=== PATIENT | female | born 1950 ===

== ENCOUNTER 2020-05-03 10:33 | Outpatient (REF) | payer MEDICARE, SELFPAY | END 2020-05-03 10:34 | disposition home or self-care (01) | LOC: HO.LAB 10:33 | PROVIDERS: Visit Provider Internal Medicine | DX: Z20.828 Contact with and (suspected) exposure to other viral communicable diseases (principal) | CPT/HCPCS: C9803; U0003 ==

== ENCOUNTER 2020-07-28 08:02 | Outpatient (REF) | payer MEDICARE, SELFPAY | END 2020-07-28 08:03 | disposition home or self-care (01) | LOC: HO.LAB 08:02 | PROVIDERS: Visit Provider Internal Medicine | DX: Z20.822 Contact with and (suspected) exposure to COVID-19 (principal) | CPT/HCPCS: 36415; C9803; U0003; U0005 ==

== ENCOUNTER 2020-07-28 23:08 | Emergency (ER) | payer MEDICARE, SELFPAY ==
--- NOTE | 2020-07-29 01:20 | ED.DENTAL ---
HPI - Dental/Oral General Chief complaint: Dental/Oral Stated complaint: dental pain Time Seen by Provider: 07/29/20 01:18 History of Present Illness HPI Narrative: Patient has a dentist appointment and was started on antibiotics and has only taken 1 tablet thus far. She is not having fever or chills, negative trismus, no evidence difficulty swallowing or breathing. MD Complaint: tooth pain Teeth map: 1. Related Data Allergies Allergy/AdvReac Type Severity Reaction Status Date / Time aspirin [ASA] Allergy Unknown STOMACH Verified 07/29/20 01:35 UPSET, gi upset Review of Systems Review of Systems: Pertinent positives and negatives as stated in HPI 10 point review of systems is otherwise negative. [facility] Past Medical History Source: nursing notes reviewed Medical History High cholesterol HTN (hypertension) Lumbar degenerative disc disease Psoriatic arthritis Social History Social History Advance Directives: No Physical Exam Vital Signs: Vital Signs: Last Vital Signs Temp 99.1 F 07/29/20 01:30 Pulse 77 07/29/20 01:30 Resp 18 07/29/20 01:30 BP 131/78 07/29/20 01:30 Pulse Ox 97 07/29/20 01:30 Body Mass Index 35.0 VITAL SIGNS: Reviewed. GENERAL: Well developed, well nourished, in no acute distress. EARS: Ext canals without abnormality, TMs non-bulging and non-erythematous NOSE: Nares patent bilateral OROPHARYNX: no oral lesions noted, posterior pharynx clear, noted dental hernan to the left upper molar, no trismus, no lip/tongue swelling NECK: Supple, no adenopathy LUNGS: Normal breath sounds. SpO2<97> CARDIOVASCULAR: Regular rate and rhythm without noted murmurs, no JVD or lower extremity edema. ABDOMEN: Soft, non-tender, non-distended with bowel sounds. NEUROLOGIC: Alert and oriented x 4. Course Course Course Narrative: This is a 70-year-old female who presents with tooth pain and has already been started on antibiotics, however she has only taken 1 tablet and presents with complaints of same tooth pain. Discussed with the patient that she would need to allow 24-48 hours for the pain to begin to resolve and in the meantime encouraged to continue taking [id number] Tylenol and ibuprofen. Patient was reassured by this information and was agreeable for discharge to home. Discharge Plan Discharge Clinical Impression: Pain, dental Patient Disposition: Home, Self-Care Instructions: Toothache (ED) Additional Instructions: 1. Tylenol 1000 mg, por v?a oral, cada 6 horas seg?n sea necesario para controlar el dolor. No exceda los 4000 mg en 24 horas. 2. Recomiende Anbesol, est? disponible sin receta y debe aplicarse jami se indica en el empaque exterior. 3. Contin?e con los antibi?ticos que le lloyd recetado y espere 24 horas adicionales para que el medicamento comience a hacer efecto. 4. Se recomienda aplicar un aerosol de soluci?n salina de venta fredi en el lado kathy de la nariz para mantener la hidrataci?n y as? evitar? el sangrado nasal. No dude en volver al servicio de urgencias si presenta fiebre, escalofr?os, dificultad para tragar o respirar. Interventions: ED Discharge Assessment Last Done: 07/29/20 02:47 Discharge Date/Time: 07/29/20 02:49 Print Language: Maori
[2020-07-29 01:30] VITALS: BP 131/78; PULSE 77; RESP 18; TEMP 37.3; O2SAT 97; BMI 35.0
== END 2020-07-29 02:49 | disposition home or self-care (01) ==
PROVIDERS: Emergency Provider Student in an Organized Health Care Education/Training Program; PCP Internal Medicine
DX: K08.89 Other specified disorders of teeth and supporting structures (principal); I10 Essential (primary) hypertension
CPT/HCPCS: 99282; 99283

== ENCOUNTER → 2020-08-03 09:22 | Outpatient (BNVA) | payer MEDICARE, SELFPAY | PROVIDERS: PCP Internal Medicine; Visit Provider Nurse Practitioner | DX: Z13.89 Encounter for screening for other disorder (principal) | CPT/HCPCS: Q3014 ==

== ENCOUNTER 2020-08-04 10:30 | Outpatient (RCR) | payer MEDICARE, SELFPAY | END 2020-09-12 08:24 | disposition other institution (70) | LOC: HO.OT 10:30 | PROVIDERS: PCP Internal Medicine; Visit Provider Internal Medicine Rheumatology | DX: M77.11 Lateral epicondylitis, right elbow (principal) | CPT/HCPCS: 97035; 97110; 97140; 97166 ==

== ENCOUNTER 2020-09-16 20:00 | Emergency (ER) | payer MEDICARE, SELFPAY ==
--- NOTE | ~2020-09-16 | XR_ITS ---
EXAMINATION: XR CHEST CLINICAL INFORMATION: Chest wall pain COMPARISON: Chest x-ray 06/04/2019 TECHNIQUE: Frontal portable view of the chest was obtained. 8:41 PM FINDINGS: No significant abnormality is noted involving the heart, lungs, mediastinum, bony thorax or soft tissues. XR/XR chest 1V IMPRESSION: Unremarkable examination.
--- NOTE | 2020-09-16 20:16 | PC.NURSE ---
WAITING FOR INTERPRETOR TO TRIAGE.
[2020-09-16 20:19] VITALS: BP 126/65; PULSE 57; RESP 16; TEMP 36.8; O2SAT 95; BMI 35.0
--- NOTE | 2020-09-16 20:24 | ECG_ITS ---
Test Reason : CP Blood Pressure : / mmHG Vent. Rate : 060 BPM Atrial Rate : 060 BPM P-R Int : 148 ms QRS Dur : 100 ms QT Int : 450 ms P-R-T Axes : 048 -19 063 degrees QTc Int : 450 ms Sinus rhythm with occasional Premature ventricular complexes Moderate voltage criteria for LVH, may be normal variant Nonspecific T wave abnormality Abnormal ECG When compared to the previous EKG of PVC present Referred By: Generic ED Physician Electronically Signed By:Ganga De La Cruz
[2020-09-16] MEDS: Aspirin Enteric Coated 81 MG TABLET.DR 162 MG PO (21:10)
[2020-09-16 21:18] VITALS: BP 128/62; PULSE 61; RESP 14; O2SAT 96
[2020-09-16 21:22] LABS: MANUAL DIFF FLAG NO
[2020-09-16 21:23] LABS: Basophils Absolute Auto 0.1 X10*3/uL (0.0-0.2); Basophils Percent Auto 0.7 % (0-2); Eosinophils Absolute Auto 0.4 X10*3/uL (0.0-0.4); Eosinophils Percent Auto 3.4 % (0-4); Hematocrit 39.9 % (37-47); Hemoglobin 13.5 g/dl (12.0-16.0); Imm Gran Abs Auto 0.02 X10*3/uL (0.00-0.03); Imm Gran Pct Auto 0.2 % (0.0-0.4); Lymphocytes Absolute Auto 4.5 X10*3/uL (1.2-4.9); Lymphocytes Percent Auto 42.9 % (20-40); Mean Corpuscular HGB Conc 33.8 g/dl (31.0-35.0); Mean Corpuscular Hemoglobin 31.3 pg (27.0-33.0); Mean Corpuscular Volume 92.6 fL (80-98); Mean Platelet Volume 10.2 fL (9.4-12.3); Monocytes Absolute Auto 0.7 X10*3/uL (0.1-1.2); Monocytes Percent Auto 6.9 % (2-11); Neutrophils Absolute Auto 4.8 X10*3/uL (2.0-8.3); Neutrophils Percent Auto 45.9 % (45-73); Platelet Count 190 X10*3/uL (160-400); Red Blood Count 4.31 X10*6/uL (4.20-5.50); White Blood Count 10.4 X10*3/uL (4.8-10.8)
--- NOTE | 2020-09-16 21:24 | PC.NURSE ---
pt has plus 2 pitting edema BLE's up to shins. states it's been that way for a long time but doesn't take lasix. / ls cta. denies SOB, diaphoresis. states pain radiates to left arm and is worse with movement.
[2020-09-16 21:47] LABS: Anion Gap 16 (12-20); Blood Urea Nitrogen 18 mg/dL (9-16); Calcium 9.8 mg/dL (8.4-10.2); Carbon Dioxide 24 mmol/L (22-29); Chloride 108 mmol/L (96-108); Creatinine Clr Calc Pharmacy 71.8; Estimated Glomerular Filt Rate > 60; Glucose Random 113 mg/dL (60-115); Potassium 4.3 mmol/L (3.3-5.1); Sodium 144 mmol/L (135-145)
[2020-09-16 21:54] LABS: Troponin-I High Sensitivity 9.9 ng/L (<3.5-17.0)
[2020-09-16 22:00] VITALS: BP 121/59; PULSE 57; RESP 18; O2SAT 96
--- NOTE | 2020-09-16 22:17 | ED_ITS ---
HPI - Chest Pain General Chief Complaint: General Medical Stated Complaint: chest pain Time Seen by Provider: 09/16/20 20:45 Source: patient Mode of arrival: ambulatory Limitations: no limitations History of Present Illness HPI narrative: Patient history of hypertension high cholesterol comes here for left-sided chest pain radiating left arm for last 3 days increases on movement of the left arm. Pain is there all the time no shortness of breath no diaphoresis no nausea no vomiting pain is sharp patient denies any cough no fever or chills no injury MD complaint: chest pain Related Data Previous Rx's Medication Instructions Recorded pantoprazole 40 mg tablet,delayed 40 mg PO DAILY 30 Days #30 tab 08/03/20 release tramadol 50 mg PO Q6H PRN #20 tab 09/16/20 Allergies Allergy/AdvReac Type Severity Reaction Status Date / Time aspirin [ASA] AdvReac Unknown STOMACH Verified 09/16/20 20:19 UPSET, gi upset Review of Systems 2 Review of Systems: Constitutional : No Weight loss, No Fever, No Chills ENT/Mouth : No sore throat, No Rhinorrhea Eyes: No Eye Pain, No Swelling Cardiovascular : +Chest Pain, no palpitations Respiratory : No Cough, No Sputum, no shortness of breath Gastrointestinal : no Nausea, No Vomiting, No Diarrhea, No abdominal Pain, no black stools Genitourinary : No Dysuria, No Urinary Frequency Musculoskeletal : No joint pain, No Myalgias, No Joint Swelling Skin : No Skin Lesions, No rash Neuro : No Weakness, No Numbness, No Dizziness, No Headache Psych : No Anxiety/Panic, No Depression Heme/Lymph: No Bruising, No Lymphadenopathy Endocrine : No Polyuria, No Polydipsia All other systems reviewed and are negative [facility] Past Medical History Medical History High cholesterol HTN (hypertension) Lumbar degenerative disc disease Psoriatic arthritis Surgical History H/O colonoscopy History of back surgery History of esophagogastroduodenoscopy (EGD) Family History Family History Mother Diabetes Father Diabetes Social History Social History Household Members: None Alcohol intake: never Smoking Status: Never smoker Use of substances other than those prescribed or required for medical reasons: No Advance Directives: No Advance Directives Information Provided: No Physical Exam Vital Signs: Vital Signs: Last Vital Signs Temp 98.2 F 09/16/20 20:19 Pulse 57 09/16/20 22:00 Resp 18 09/16/20 22:00 BP 121/59 L 09/16/20 22:00 Pulse Ox 96 09/16/20 22:00 Body Mass Index 35.0 Appearance: Alert. Oriented X3. No acute distress. Eyes: Pupils equal, round and reactive to light. ENT: Pharynx normal. Neck: Normal inspection. Neck supple. CVS: Normal heart rate and rhythm. Pulses normal. Respiratory: No respiratory distress. Breath sounds normal. Abdomen: Soft and nontender. Bowel sounds are present, no mass palpable, no CVA tenderness Skin: Skin warm and dry. Normal skin color. Normal skin turgor. Extremities: trace lower extremity edema. No calf tenderness Neuro: Oriented X 3. No motor deficit. No sensory deficit. MDM - Chest Pain MDM Narrative Medical decision making narrative: Patient has atypical chest pain for last 3 days EKG no acute ischemic changes high since troponins 9.9 will repeat troponin 2 hours likely musculoskeletal pain 23:45 repeat troponin without any significant delta change. 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 Lab Data Attestation: I reviewed the patient's lab results. Result diagrams: 09/16/20 21:17 09/16/20 21:16 Labs: Lab Results 09/16/20 09/16/20 09/16/20 Range/Units 21:16 21:16 21:16 WBC (4.8-10.8) X10*3/uL RBC (4.20-5.50) X10*6/uL Hgb (12.0-16.0) g/dl Hct (37-47) % MCV (80-98) fL MCH (27.0-33.0) pg MCHC (31.0-35.0) g/dl RDW (11.0-16.0) % Plt Count (160-400) X10*3/uL MPV (9.4-12.3) fL Immature Gran % (Auto) (0.0-0.4) % Neut % (Auto) (45-73) % Lymph % (Auto) (20-40) % [place] % (Auto) (2-11) % Eos % (Auto) (0-4) % Baso % (Auto) (0-2) % Lymph # (Auto) (1.2-4.9) X10*3/uL [place] # (Auto) (0.1-1.2) X10*3/uL Eos # (Auto) (0.0-0.4) X10*3/uL Baso # (Auto) (0.0-0.2) X10*3/uL Abs Immat Gran (auto) (0.00-0.03) X10*3/uL Absolute Neuts (auto) (2.0-8.3) X10*3/uL Absolute Nucleated RBC (0.0-0.012) X10*3/uL Nucleated RBC % (auto) (0.0-0.2) /100WBC Hold Blue Top SEE NOTE Sodium 144 (135-145) mmol/L Potassium 4.3 (3.3-5.1) mmol/L Chloride 108 (96-108) mmol/L Carbon Dioxide 24 (22-29) mmol/L Anion Gap 16 (12-20) BUN 18 H (9-16) mg/dL Creatinine 0.85 (0.5-1.4) mg/dL Estim Creat Clear Calc 71.8 Estimated GFR > 60 Random Glucose 113 (60-115) mg/dL Calcium 9.8 (8.4-10.2) mg/dL Troponin I High Sens 9.9 (<3.5-17.0) ng/L B-Natriuretic Peptide 39 (<100) pg/mL 09/16/20 09/16/20 Range/Units 21:17 23:09 WBC 10.4 (4.8-10.8) X10*3/uL RBC 4.31 (4.20-5.50) X10*6/uL Hgb 13.5 (12.0-16.0) g/dl Hct 39.9 (37-47) % MCV 92.6 (80-98) fL MCH 31.3 (27.0-33.0) pg MCHC 33.8 (31.0-35.0) g/dl RDW 13.0 (11.0-16.0) % Plt Count 190 (160-400) X10*3/uL MPV 10.2 (9.4-12.3) fL Immature Gran % (Auto) 0.2 (0.0-0.4) % Neut % (Auto) 45.9 (45-73) % Lymph % (Auto) 42.9 H (20-40) % [place] % (Auto) 6.9 (2-11) % Eos % (Auto) 3.4 (0-4) % Baso % (Auto) 0.7 (0-2) % Lymph # (Auto) 4.5 (1.2-4.9) X10*3/uL [place] # (Auto) 0.7 (0.1-1.2) X10*3/uL Eos # (Auto) 0.4 (0.0-0.4) X10*3/uL Baso # (Auto) 0.1 (0.0-0.2) X10*3/uL Abs Immat Gran (auto) 0.02 (0.00-0.03) X10*3/uL Absolute Neuts (auto) 4.8 (2.0-8.3) X10*3/uL Absolute Nucleated RBC 0.000 (0.0-0.012) X10*3/uL Nucleated RBC % (auto) 0.0 (0.0-0.2) /100WBC Hold Blue Top Sodium (135-145) mmol/L Potassium (3.3-5.1) mmol/L Chloride (96-108) mmol/L Carbon Dioxide (22-29) mmol/L Anion Gap (12-20) BUN (9-16) mg/dL Creatinine (0.5-1.4) mg/dL Estim Creat Clear Calc Estimated GFR Random Glucose (60-115) mg/dL Calcium (8.4-10.2) mg/dL Troponin I High Sens 11.9 (<3.5-17.0) ng/L B-Natriuretic Peptide (<100) pg/mL ECG Data ECG #1: Attestation: I personally reviewed and interpreted this ECG as follows: Interpretation: Normal sinus rhythm heart rate 60 beats per minute LVH nonspecific T-wave changes occasional unifocal PVC no acute ischemic changes Discharge Plan Discharge Clinical Impression: Chest pain Qualifiers: Chest pain type: chest pain on breathing Qualified Code(s): R07.1 - Chest pain on breathing Patient Disposition: Home, Self-Care Instructions: Chest Pain (ED) Additional Instructions: Take baby aspirin daily Tramadol for severe pain Follow with PCP/cardiology for further workup including stress test Report to ER if increasing chest pain/ shortness of breath Prescriptions: New tramadol 50 mg tablet 50 mg PO Q6H PRN (Reason: pain) Qty: 20 RF: 0 No Action pantoprazole [Protonix] 40 mg tablet,delayed release (DR/EC) 40 mg PO DAILY 30 Days Qty: 30 RF: 6 Referrals: Wesley Guo MD [Physician] - 1 week
[2020-09-16 22:51] LABS: B Type Natriuretic Peptide 39 pg/mL (<100)
--- NOTE | 2020-09-16 23:00 | PC.NURSE ---
pt reports feeling better. sb on moitor. awaits repeat trop. skin pwd. nad. unlabored resp.
[2020-09-16 23:42] LABS: Troponin-I High Sensitivity 11.9 ng/L (<3.5-17.0)
== END 2020-09-17 00:24 | disposition home or self-care (01) ==
PROVIDERS: Emergency Provider Internal Medicine; PCP Internal Medicine
DX: R07.1 Chest pain on breathing (principal); I10 Essential (primary) hypertension; E78.5 Hyperlipidemia, unspecified
CPT/HCPCS: 36415; 71045; 80048; 83880; 84484; 85025; 93005; 99284

== ENCOUNTER 2020-11-09 14:14 | Emergency (ER) | payer MEDICARE, SELFPAY ==
--- NOTE | 2020-11-09 | ECG_ITS ---
Test Reason : CHEST PAIN Blood Pressure : / mmHG Vent. Rate : 051 BPM Atrial Rate : 051 BPM P-R Int : 150 ms QRS Dur : 100 ms QT Int : 446 ms P-R-T Axes : 048 -18 030 degrees QTc Int : 411 ms Sinus bradycardia Moderate voltage criteria for LVH, may be normal variant Nonspecific T wave abnormality Abnormal ECG When compared with ECG of 16-SEP-2020 21:03, Premature ventricular complexes are no longer Present T wave inversion now evident in Anterior leads Referred By: Generic ED Physician Electronically Signed By:LION SHEPPARD MD
--- NOTE | ~2020-11-09 | XR_ITS ---
EXAMINATION: XR CHEST CLINICAL INFORMATION: Chest pain. COMPARISON: Chest upright 09/16/2020. TECHNIQUE: 2 views of the chest were obtained. FINDINGS: No significant abnormality is noted involving the heart, lungs, mediastinum, bony thorax or soft tissues. XR/XR chest 2V IMPRESSION: Unremarkable chest examination.
[2020-11-09 14:28] VITALS: BP 125/61; PULSE 64; RESP 18; TEMP 36.6; O2SAT 96; BMI 34.5
[2020-11-09 15:37] LABS: MANUAL DIFF FLAG NO
[2020-11-09 15:39] LABS: Basophils Percent Auto 0.5 % (0-2); Eosinophils Absolute Auto 0.3 X10*3/uL (0.0-0.4); Eosinophils Percent Auto 3.2 % (0-4); Hematocrit 41.6 % (37-47); Hemoglobin 13.9 g/dl (12.0-16.0); Imm Gran Abs Auto 0.02 X10*3/uL (0.00-0.03); Imm Gran Pct Auto 0.2 % (0.0-0.4); Lymphocytes Absolute Auto 3.2 X10*3/uL (1.2-4.9); Lymphocytes Percent Auto 37.6 % (20-40); Mean Corpuscular HGB Conc 33.4 g/dl (31.0-35.0); Mean Corpuscular Hemoglobin 31.2 pg (27.0-33.0); Mean Corpuscular Volume 93.3 fL (80-98); Mean Platelet Volume 9.9 fL (9.4-12.3); Monocytes Absolute Auto 0.6 X10*3/uL (0.1-1.2); Neutrophils Absolute Auto 4.4 X10*3/uL (2.0-8.3); Neutrophils Percent Auto 51.5 % (45-73); Platelet Count 206 X10*3/uL (160-400); Red Blood Count 4.46 X10*6/uL (4.20-5.50); Red Cell Distribution Width 13.3 % (11.0-16.0); White Blood Count 8.5 X10*3/uL (4.8-10.8)
[2020-11-09 16:23] LABS: Troponin-I High Sensitivity 8.9 ng/L (<3.5-17.0)
[2020-11-09 16:30] LABS: Alanine Aminotransferase 26 U/L (0-31); Albumin Level 4.9 g/dL (3.5-5.0); Alkaline Phosphatase 95 U/L (39-117); Anion Gap 12 (12-20); Aspartate Amino Transferase 35 U/L (5-31); Bilirubin Total 0.5 mg/dL (0.0-1.0); Blood Urea Nitrogen 28 mg/dL (9-16); Calcium 10.7 mg/dL (8.4-10.2); Carbon Dioxide 29 mmol/L (22-29); Chloride 106 mmol/L (96-108); Creatinine Clr Calc Pharmacy 47.7; Estimated Glomerular Filt Rate 41; Glucose Random 120 mg/dL (60-115); Potassium 4.6 mmol/L (3.3-5.1); Sodium 142 mmol/L (135-145); Total Protein 7.8 g/dL (6.5-8.0)
[2020-11-09 20:25] VITALS: BP 139/79; PULSE 55; RESP 16; TEMP 36.9; O2SAT 97
[2020-11-09 20:30] VITALS: PULSE 59
--- NOTE | 2020-11-09 21:44 | ED.CHESTPAIN ---
HPI - Chest Pain General Chief Complaint: Chest Pain Stated Complaint: chest pain, nausea, high blood pressure Time Seen by Provider: 11/09/20 21:44 History of Present Illness HPI narrative: Patient is a 70-year-old female presents today with having chest pain. The chest pain is over the mid chest. And on the left side. It is not associated with shortness of breath or diaphoresis. His been there on and off since yesterday. Currently it has been on for the last few hours. Patient had no recent stress test. Positive history of hypertension and high cholesterol. No smoking. Never had a heart attack. Related Data Previous Rx's Medication Instructions Recorded pantoprazole 40 mg tablet,delayed 40 mg PO DAILY 30 Days #30 tab 08/03/20 release tramadol 50 mg PO Q6H PRN #20 tab 09/16/20 Allergies Allergy/AdvReac Type Severity Reaction Status Date / Time aspirin [ASA] AdvReac Unknown STOMACH Verified 09/16/20 20:19 UPSET, gi upset Review of Systems Review of Systems: Constitutional: No Weight loss, No Fever, No Chills, No Night Sweats, No Fatigue, No Malaise ENT/Mouth: No Hearing loss, No Ear Pain, No Nasal Congestion, No Sinus Pain, No Hoarseness, No sore throat, No Rhinorrhea, No Swallowing Difficulty Eyes: No Eye Pain, No Swelling, No Redness, No Foreign Body, No Discharge, No Vision Changes Cardiovascular: Positive Chest Pain, No SOB, No Dyspnea on Exertion, No Orthopnea, No Edema, No Palpitations Respiratory: No Cough, No Sputum, No Wheezing, No Smoke Exposure, No Dyspnea Gastrointestinal: No Nausea, No Vomiting, No Diarrhea, No Constipation, No abdominal Pain, No Hematochezia, No Melena Genitourinary: no irregular bleeding, No Dysuria, No Urinary Frequency, No Hematuria, No Urinary Incontinence, No Urgency, No Flank Pain, No Urinary Flow Changes, No Hesitancy Musculoskeletal: No joint pain, No Myalgias, No Joint Swelling Skin: No Skin Lesions, No rash Neuro: No Weakness, No Numbness, No Paresthesias, No Loss of Consciousness, No Dizziness, No Headache Psych: No Anxiety/Panic, No Depression, No SI/HI/AH/VH, No Social Issues, Heme/Lymph: No Bruising, No Bleeding,No Lymphadenopathy Endocrine: No Polyuria, No Polydipsia, No Temperature Intolerance [facility] Past Medical History Attestation statement: The following information was validated with the patient. Medical History High cholesterol HTN (hypertension) Lumbar degenerative disc disease Psoriatic arthritis Surgical History H/O colonoscopy History of back surgery History of esophagogastroduodenoscopy (EGD) Family History Family History Mother Diabetes Father Diabetes Social History Social History Household Members: None Alcohol intake: never Advance Directives: No Advance Directives Information Provided: No Physical Exam Vital Signs: Vital Signs: Last Vital Signs Temp 98.4 F 11/09/20 22:10 Pulse 52 11/09/20 22:10 Resp 14 11/09/20 22:10 BP 128/73 11/09/20 22:10 Pulse Ox 96 11/09/20 22:10 Body Mass Index 34.5 Appearance: Alert. Oriented X3. No acute distress. Eyes: Pupils equal, round and reactive to light. ENT: Pharynx normal. Neck: Normal inspection. Neck supple. No lymph nodes noted. No crepitus CVS: Normal heart rate and rhythm. Pulses normal. Normal S1 and S2 Respiratory: No respiratory distress. Breath sounds normal. No Wheezing. No rales Abdomen: Soft and nontender. No rigidity. No distention. good BS x4 Skin: Skin warm and dry. Normal skin color. Normal skin turgor. Extremities: No lower extremity edema. Neurovascular intact to all extremities. No Lacerations. No Rash Neuro: Oriented X 3. No motor deficit. No sensory deficit. Moving all extermities. No slurred speech MDM - Chest Pain MDM Narrative Medical decision making narrative: Patient's chest pain atypical. However patient is 70 years old with 2 risk factors. Will get 2 sets of cardiac enzymes. We will get chest x-ray to make sure patient is not have pneumonia pneumothorax. Will monitor carefully. In no distress currently. Two sets of cardiac enzymes are negative. Patient well appearing. Will discharge patient home. Explained to patient risk of coronary artery disease still exist. Will need close follow-up. In stable condition. Lab Data Result diagrams: 11/09/20 15:35 11/09/20 15:35 Labs: Lab Results 11/09/20 11/09/20 11/09/20 Range/Units 15:35 15:35 15:35 WBC 8.5 (4.8-10.8) X10*3/uL RBC 4.46 (4.20-5.50) X10*6/uL Hgb 13.9 (12.0-16.0) g/dl Hct 41.6 (37-47) % MCV 93.3 (80-98) fL MCH 31.2 (27.0-33.0) pg MCHC 33.4 (31.0-35.0) g/dl RDW 13.3 (11.0-16.0) % Plt Count 206 (160-400) X10*3/uL MPV 9.9 (9.4-12.3) fL Immature Gran % (Auto) 0.2 (0.0-0.4) % Neut % (Auto) 51.5 (45-73) % Lymph % (Auto) 37.6 (20-40) % [place] % (Auto) 7.0 (2-11) % Eos % (Auto) 3.2 (0-4) % Baso % (Auto) 0.5 (0-2) % Lymph # (Auto) 3.2 (1.2-4.9) X10*3/uL [place] # (Auto) 0.6 (0.1-1.2) X10*3/uL Eos # (Auto) 0.3 (0.0-0.4) X10*3/uL Baso # (Auto) 0.0 (0.0-0.2) X10*3/uL Abs Immat Gran (auto) 0.02 (0.00-0.03) X10*3/uL Absolute Neuts (auto) 4.4 (2.0-8.3) X10*3/uL Absolute Nucleated RBC 0.000 (0.0-0.012) X10*3/uL Nucleated RBC % (auto) 0.0 (0.0-0.2) /100WBC Sodium 142 (135-145) mmol/L Potassium 4.6 (3.3-5.1) mmol/L Chloride 106 (96-108) mmol/L Carbon Dioxide 29 (22-29) mmol/L Anion Gap 12 (12-20) BUN 28 H D (9-16) mg/dL Creatinine 1.27 (0.5-1.4) mg/dL Estim Creat Clear Calc 47.7 Estimated GFR 41 Random Glucose 120 H (60-115) mg/dL Calcium 10.7 H D (8.4-10.2) mg/dL Total Bilirubin 0.5 (0.0-1.0) mg/dL AST 35 H (5-31) U/L ALT 26 (0-31) U/L Alkaline Phosphatase 95 (39-117) U/L Troponin I High Sens 8.9 (<3.5-17.0) ng/L Total Protein 7.8 (6.5-8.0) g/dL Albumin 4.9 (3.5-5.0) g/dL 11/09/ Range/Units 22:10 WBC (4.8-10.8) X10*3/uL RBC (4.20-5.50) X10*6/uL Hgb (12.0-16.0) g/dl Hct (37-47) % MCV (80-98) fL MCH (27.0-33.0) pg MCHC (31.0-35.0) g/dl RDW (11.0-16.0) % Plt Count (160-400) X10*3/uL MPV (9.4-12.3) fL Immature Gran % (Auto) (0.0-0.4) % Neut % (Auto) (45-73) % Lymph % (Auto) (20-40) % [place] % (Auto) (2-11) % Eos % (Auto) (0-4) % Baso % (Auto) (0-2) % Lymph # (Auto) (1.2-4.9) X10*3/uL [place] # (Auto) (0.1-1.2) X10*3/uL Eos # (Auto) (0.0-0.4) X10*3/uL Baso # (Auto) (0.0-0.2) X10*3/uL Abs Immat Gran (auto) (0.00-0.03) X10*3/uL Absolute Neuts (auto) (2.0-8.3) X10*3/uL Absolute Nucleated RBC (0.0-0.012) X10*3/uL Nucleated RBC % (auto) (0.0-0.2) /100WBC Sodium (135-145) mmol/L Potassium (3.3-5.1) mmol/L Chloride (96-108) mmol/L Carbon Dioxide (22-29) mmol/L Anion Gap (12-20) BUN (9-16) mg/dL Creatinine (0.5-1.4) mg/dL Estim Creat Clear Calc Estimated GFR Random Glucose (60-115) mg/dL Calcium (8.4-10.2) mg/dL Total Bilirubin (0.0-1.0) mg/dL AST (5-31) U/L ALT (0-31) U/L Alkaline Phosphatase (39-117) U/L Troponin I High Sens 9.8 (<3.5-17.0) ng/L Total Protein (6.5-8.0) g/dL Albumin (3.5-5.0) g/dL Discharge Plan Discharge Clinical Impression: Chest pain Patient Disposition: Home, Self-Care Instructions: Chest Pain (ED) Prescriptions: No Action tramadol 50 mg tablet 50 mg PO Q6H PRN (Reason: pain) Qty: 20 RF: 0 pantoprazole [Protonix] 40 mg tablet,delayed release (DR/EC) 40 mg PO DAILY 30 Days Qty: 30 RF: 6 Referrals: Letty Morrison MD [Primary Care Provider] - 2 days Print Language: Croatian
[2020-11-09 22:10] VITALS: BP 128/73; PULSE 52; RESP 14; TEMP 36.9; O2SAT 96
[2020-11-09 22:57] LABS: Troponin-I High Sensitivity 9.8 ng/L (<3.5-17.0)
== END 2020-11-09 23:55 | disposition home or self-care (01) ==
PROVIDERS: Emergency Provider Emergency Medicine Emergency Medical Services; PCP Internal Medicine
DX: R07.9 Chest pain, unspecified (principal); I10 Essential (primary) hypertension; R11.0 Nausea; E78.00 Pure hypercholesterolemia, unspecified
CPT/HCPCS: 36415; 71046; 80053; 84484; 85025; 93005; 99283; 99284

== ENCOUNTER 2021-02-14 12:58 | Emergency (ER) | payer MEDICARE, SELFPAY ==
--- NOTE | ~2021-02-14 | CT_ITS ---
EXAMINATION: CT HEAD WITHOUT CONTRAST CLINICAL INFORMATION: Dizziness COMPARISON: Previous exam October 2012 TECHNIQUE: Contiguous axial imaging was performed from the skull base to vertex without intravenous administration of contrast. This CT examination was performed using dose optimization techniques as appropriate, variously including the following: *Automated exposure control *Adjustment of mA and/or kV according to patient size (this includes techniques or standardized protocols for targeted exams where dose is matched to indication/reason for exam; i.e. extremities or head) *Use of iterative reconstruction technique DLP: 729 mGy-cm FINDINGS: There is no evidence of acute intracranial hemorrhage or territorial infarction. No abnormal mass effect or midline shift is seen. Mcginnis to white matter differentiation is well preserved. No extra-axial fluid collections are identified. The ventricles are normal in size. There is no abnormal attenuation within the brain parenchyma. The osseous structures are normal. There is complete soft tissue opacification of the left maxillary sinus. There is also soft tissue opacification of the left ethmoid sinuses and left side of the sphenoid sinus. Mastoid air cells and middle ears are clear. CT/CT head/brain wo con IMPRESSION: No acute intracranial findings. Left-sided sinusitis.
--- NOTE | 2021-02-14 13:12 | PC.NURSE ---
waiting for administrative office assistant to triage
--- NOTE | 2021-02-14 13:35 | ED_ITS ---
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 Mode of arrival: ambulatory Limitations: no limitations History of Present Illness MD Complaint: generalized weakness (dizziness - mild, feels nauseated) Onset (ago): day(s) (4) Duration: intermittent Location: generalized Migration: none Severity: mild Quality: dull Relieving factors: none Exacerbating factors: none Associated symptoms: nausea/vomiting and other (mild lightheaded) Related Data Home Medications Medication Instructions Recorded Confirmed amlodipine 10 mg tablet 1 tab PO DAILY 02/14/21 02/14/21 atenolol 100 mg tablet 1 tab PO DAILY 02/14/21 02/14/21 atorvastatin 20 mg tablet 1 tab PO DAILY 02/14/21 02/14/21 cholecalciferol (vitamin D3) 25 1 cap PO DAILY 02/14/21 02/14/21 mcg (1,000 unit) capsule (Vitamin D3) ergocalciferol (vitamin D2) 1,250 1 cap PO QWEEK 02/14/21 02/14/21 mcg (50,000 unit) capsule folic acid 1 mg tablet 1 tab PO DAILY 02/14/21 02/14/21 furosemide 20 mg tablet 1 tab PO DAILY 02/14/21 02/14/21 ibuprofen 800 mg tablet 1 tab PO TID 02/14/21 02/14/21 lisinopril 40 mg tablet 1 tab PO DAILY 02/14/21 02/14/21 methotrexate sodium 2.5 mg tablet 4 tab PO QWEEK 02/14/21 02/14/21 nabumetone 750 mg tablet 1 tab PO BID PRN 02/14/21 02/14/21 prazosin 1 mg capsule 1 cap PO TID 02/14/21 02/14/21 Previous Rx's Medication Instructions Recorded tramadol 50 mg tablet 50 mg PO Q6H PRN #20 tab 09/16/20 pantoprazole 40 mg tablet,delayed 40 mg PO DAILY 90 Days #90 tab 02/06/21 release cefuroxime axetil 500 mg tablet 500 mg PO BID 10 Days #20 tab 02/14/21 meclizine 25 mg tablet 25 mg PO TID PRN #30 tab 02/14/21 ondansetron 4 mg disintegrating 4 mg PO Q8H PRN #20 tab 02/14/21 tablet Allergies Allergy/AdvReac Type Severity Reaction Status Date / Time aspirin [ASA] AdvReac Unknown STOMACH Verified 02/14/21 13:38 UPSET, gi upset Review of Systems Review of Systems: Constitutional : No Weight loss, No Fever, No Chills, No Fatigue, No Malaise ENT/Mouth : No sore throat, No Rhinorrhea Eyes: No Eye Pain, No Swelling, No Redness Cardiovascular : No Chest Pain, No SOB, No Dyspnea on Exertion, No Orthopnea, No Edema, No Palpitations Respiratory : No Cough, No Sputum, No Wheezing Gastrointestinal : pos Nausea, No Vomiting, No Diarrhea, No Constipation, No abdominal Pain, No Hematochezia, No Melena Genitourinary : No Dysuria, No Urinary Frequency, No Hematuria, Musculoskeletal : No joint pain, No Myalgias, No Joint Swelling Skin : No Skin Lesions, No rash Neuro : No Weakness, No Numbness, pos Dizziness, No Headache Psych : No Anxiety/Panic, No Depression Heme/Lymph: No Bruising, No Bleeding,No Lymphadenopathy Endocrine : No Polyuria, No Polydipsia All other systems reviewed and are negative [facility] Past Medical History Attestation statement: The following information was validated with the patient. Medical History (Updated 02/14/21 @ 15:01 by Ofelia Schultz DO) Borderline diabetes COVID-19 vaccine series completed High cholesterol HTN (hypertension) Lumbar degenerative disc disease Psoriatic arthritis Surgical History H/O colonoscopy History of back surgery History of esophagogastroduodenoscopy (EGD) Family History Family History Mother Diabetes Father Diabetes Social History Social History Household Members: None Alcohol intake: never Patient Tobacco Use Status: Never used Tobacco Advance Directives: No Advance Directives Information Provided: No Physical Exam Vital Signs: Vital Signs: Last Vital Signs Temp 97.2 F 02/14/21 13:38 Pulse 68 02/14/21 13:38 Resp 18 02/14/21 13:38 BP 122/75 02/14/21 13:38 Pulse Ox 93 02/14/21 13:38 Body Mass Index 35.0 Appearance: Alert. Oriented X3. No acute distress. Eyes: Pupils equal, round and reactive to light. ENT: Pharynx normal. Neck: Normal inspection. Neck supple. CVS: Normal heart rate and rhythm. Pulses normal. Respiratory: No respiratory distress. Breath sounds normal. Abdomen: Soft and nontender. Skin: Skin warm and dry. Normal skin color. Normal skin turgor. Extremities: No lower extremity edema. No calf ttp Neuro: Oriented X 3. No motor deficit. No sensory deficit. no drift, steady gait, CN2-12 intact Course Course Course Narrative: trop flat 4 days of symptoms no CP, CT head shows sinusitis likely the cause of her symptoms will start on ceftin MDM - Weakness MDM Narrative Medical decision making narrative: 70 yo female with HTN, HLD, back pain, arthritis here with 4 days of feeling dizzy and some nausea - no trauma, no AC therapy, she has a normal gait and neuro exam. She denies CP/SOB - seems atypical for ACS/PE - labs, CT head for mass, IVF, antivert dispo per results and findings. Lab Data Result diagrams: 02/14/21 14:17 02/14/21 14:17 Labs: Lab Results 02/14/21 02/14/21 02/14/21 Range/Units 14:17 14:17 14:17 WBC 9.1 (4.8-10.8) X10*3/uL RBC 4.32 (4.20-5.50) X10*6/uL Hgb 13.8 (12.0-16.0) g/dl Hct 39.8 (37-47) % MCV 92.1 (80-98) fL MCH 31.9 (27.0-33.0) pg MCHC 34.7 (31.0-35.0) g/dl RDW 13.2 (11.0-16.0) % Plt Count 211 (160-400) X10*3/uL MPV 10.2 (9.4-12.3) fL Immature Gran % (Auto) 0.2 (0.0-0.4) % Neut % (Auto) 56.9 (45-73) % Lymph % (Auto) 30.9 (20-40) % [place] % (Auto) 6.8 (2-11) % Eos % (Auto) 4.5 H (0-4) % Baso % (Auto) 0.7 (0-2) % Lymph # (Auto) 2.8 (1.2-4.9) X10*3/uL [place] # (Auto) 0.6 (0.1-1.2) X10*3/uL Eos # (Auto) 0.4 (0.0-0.4) X10*3/uL Baso # (Auto) 0.1 (0.0-0.2) X10*3/uL Abs Immat Gran (auto) 0.02 (0.00-0.03) X10*3/uL Absolute Neuts (auto) 5.2 (2.0-8.3) X10*3/uL Absolute Nucleated RBC 0.000 (0.0-0.012) X10*3/uL Nucleated RBC % (auto) 0.0 (0.0-0.2) /100WBC Sodium 142 (135-145) mmol/L Potassium 4.4 (3.3-5.1) mmol/L Chloride 106 (96-108) mmol/L Carbon Dioxide 27 (22-29) mmol/L Anion Gap 13 (12-20) BUN 13 D (9-16) mg/dL Creatinine 1.02 (0.5-1.4) mg/dL Estim Creat Clear Calc 59.8 Estimated GFR 53 Random Glucose 130 H (60-115) mg/dL Calcium 10.2 (8.4-10.2) mg/dL Magnesium 1.9 (1.6-2.6) mg/dL Total Bilirubin 0.7 (0.0-1.0) mg/dL Direct Bilirubin 0.2 (0.0-0.5) mg/dL AST 43 H (5-31) U/L ALT 26 (0-31) U/L Alkaline Phosphatase 78 (39-117) U/L Troponin I High Sens (<3.5-17.0) ng/L Total Protein 7.7 (6.5-8.0) g/dL Albumin 4.5 (3.5-5.0) g/dL Lipase 11 (8-78) U/L COVID-19 ([facility]) (Negative) COVID-19 Clin Com 02/14/21 02/14/21 Range/Units 14:17 14:18 WBC (4.8-10.8) X10*3/uL RBC (4.20-5.50) X10*6/uL Hgb (12.0-16.0) g/dl Hct (37-47) % MCV (80-98) fL MCH (27.0-33.0) pg MCHC (31.0-35.0) g/dl RDW (11.0-16.0) % Plt Count (160-400) X10*3/uL MPV (9.4-12.3) fL Immature Gran % (Auto) (0.0-0.4) % Neut % (Auto) (45-73) % Lymph % (Auto) (20-40) % [place] % (Auto) (2-11) % Eos % (Auto) (0-4) % Baso % (Auto) (0-2) % Lymph # (Auto) (1.2-4.9) X10*3/uL [place] # (Auto) (0.1-1.2) X10*3/uL Eos # (Auto) (0.0-0.4) X10*3/uL Baso # (Auto) (0.0-0.2) X10*3/uL Abs Immat Gran (auto) (0.00-0.03) X10*3/uL Absolute Neuts (auto) (2.0-8.3) X10*3/uL Absolute Nucleated RBC (0.0-0.012) X10*3/uL Nucleated RBC % (auto) (0.0-0.2) /100WBC Sodium (135-145) mmol/L Potassium (3.3-5.1) mmol/L Chloride (96-108) mmol/L Carbon Dioxide (22-29) mmol/L Anion Gap (12-20) BUN (9-16) mg/dL Creatinine (0.5-1.4) mg/dL Estim Creat Clear Calc Estimated GFR Random Glucose (60-115) mg/dL Calcium (8.4-10.2) mg/dL Magnesium (1.6-2.6) mg/dL Total Bilirubin (0.0-1.0) mg/dL Direct Bilirubin (0.0-0.5) mg/dL AST (5-31) U/L ALT (0-31) U/L Alkaline Phosphatase (39-117) U/L Troponin I High Sens 11.2 (<3.5-17.0) ng/L Total Protein (6.5-8.0) g/dL Albumin (3.5-5.0) g/dL Lipase (8-78) U/L COVID-19 ([facility]HAN) Negative (Negative) COVID-19 Clin Com See Note ECG Data Attestation: I personally reviewed and interpreted this ECG as follows: ECG interpretation date: 02/14/21 ECG interpretation time: 14:13 Interpretation: Rate: 57 Rhythm: sinus bradycardia [place]: left Normal P waves. Normal PAUL. Normal QRS complex. ST T wave : nonspecific, no FAITH qTC: normal prior studies: no acute change from prior no ischemia The study has been interpreted contemporaneously by me. . Discharge Plan Discharge Clinical Impression: Sinusitis Qualifiers: Sinusitis location: maxillary Chronicity: acute Recurrence: non-recurrent Qualified Code(s): J01.00 - Acute maxillary sinusitis, unspecified Patient Disposition: Home, Self-Care Instructions: Sinusitis (ED) Additional Instructions: return to ED for any worsening symptoms or concerns Prescriptions: New meclizine 25 mg tablet 25 mg PO TID PRN (Reason: dizziness) Qty: 30 RF: 0 ondansetron 4 mg tablet,disintegrating 4 mg PO Q8H PRN (Reason: nausea and vomiting) Qty: 20 RF: 0 cefuroxime axetil 500 mg tablet 500 mg PO BID 10 Days Qty: 20 RF: 0 No Action pantoprazole 40 mg tablet,delayed release (DR/EC) 40 mg PO DAILY 90 Days Qty: 90 RF: 0 atorvastatin 20 mg tablet 1 tab PO DAILY RF: 0 nabumetone 750 mg tablet 1 tab PO BID PRN (Reason: pain) RF: 0 ibuprofen 800 mg tablet 1 tab PO TID RF: 0 atenolol 100 mg tablet 1 tab PO DAILY RF: 0 prazosin 1 mg capsule 1 cap PO TID RF: 0 methotrexate sodium 2.5 mg tablet 4 tab PO QWEEK RF: 0 amlodipine 10 mg tablet 1 tab PO DAILY RF: 0 folic acid 1 mg tablet 1 tab PO DAILY RF: 0 furosemide 20 mg tablet 1 tab PO DAILY RF: 0 ergocalciferol (vitamin D2) 1,250 mcg (50,000 unit) capsule 1 cap PO QWEEK RF: 0 lisinopril 40 mg tablet 1 tab PO DAILY RF: 0 cholecalciferol (vitamin D3) [Vitamin D3] 25 mcg (1,000 unit) capsule 1 cap PO DAILY RF: 0 tramadol 50 mg tablet 50 mg PO Q6H PRN (Reason: pain) Qty: 20 RF: 0 Referrals: Letty Morrison MD [Primary Care Provider] - 2 days (if not better) Print Language: Telugu
[2021-02-14 13:38] VITALS: BP 122/75; PULSE 68; RESP 18; TEMP 36.2; O2SAT 93; BMI 35.0
--- NOTE | 2021-02-14 13:48 | ECG_ITS ---
Test Reason : WEAKNESS Blood Pressure : / mmHG Vent. Rate : 057 BPM Atrial Rate : 057 BPM P-R Int : 148 ms QRS Dur : 098 ms QT Int : 434 ms P-R-T Axes : 050 -19 030 degrees QTc Int : 422 ms Sinus bradycardia Moderate voltage criteria for LVH, may be normal variant Nonspecific T wave abnormality Abnormal ECG When compared with ECG of 09-NOV-2020 16:35, Nonspecific T wave abnormality, improved in Lateral leads Referred By: Ofelia Schultz Electronically Signed By:CHRISTIAN LAZO
--- NOTE | 2021-02-14 13:57 | PC.NURSE ---
PT CURRENTLY IN CT SCAN
[2021-02-14] MEDS: Meclizine HCl 25 MG TABLET PO (14:20)
[2021-02-14] MEDS: 0.9 % Sodium Chloride 1,000 ML 999 ML IVCONT (14:21)
[2021-02-14 14:25] LABS: MANUAL DIFF FLAG NO
[2021-02-14 14:29] LABS: Basophils Absolute Auto 0.1 X10*3/uL (0.0-0.2); Basophils Percent Auto 0.7 % (0-2); Eosinophils Absolute Auto 0.4 X10*3/uL (0.0-0.4); Eosinophils Percent Auto 4.5 % (0-4); Hematocrit 39.8 % (37-47); Hemoglobin 13.8 g/dl (12.0-16.0); Imm Gran Abs Auto 0.02 X10*3/uL (0.00-0.03); Imm Gran Pct Auto 0.2 % (0.0-0.4); Lymphocytes Absolute Auto 2.8 X10*3/uL (1.2-4.9); Lymphocytes Percent Auto 30.9 % (20-40); Mean Corpuscular HGB Conc 34.7 g/dl (31.0-35.0); Mean Corpuscular Hemoglobin 31.9 pg (27.0-33.0); Mean Corpuscular Volume 92.1 fL (80-98); Mean Platelet Volume 10.2 fL (9.4-12.3); Monocytes Absolute Auto 0.6 X10*3/uL (0.1-1.2); Monocytes Percent Auto 6.8 % (2-11); Neutrophils Absolute Auto 5.2 X10*3/uL (2.0-8.3); Neutrophils Percent Auto 56.9 % (45-73); Platelet Count 211 X10*3/uL (160-400); Red Blood Count 4.32 X10*6/uL (4.20-5.50); Red Cell Distribution Width 13.2 % (11.0-16.0); White Blood Count 9.1 X10*3/uL (4.8-10.8)
[2021-02-14 14:43] LABS: IDNOW Serial# 9DD0AD1C
[2021-02-14 14:44] LABS: COVID-19 Test Negative (Negative)
[2021-02-14 14:48] LABS: Anion Gap 13 (12-20); Blood Urea Nitrogen 13 mg/dL (9-16); Calcium 10.2 mg/dL (8.4-10.2); Carbon Dioxide 27 mmol/L (22-29); Chloride 106 mmol/L (96-108); Creatinine Clr Calc Pharmacy 59.8; Estimated Glomerular Filt Rate 53; Glucose Random 130 mg/dL (60-115); Potassium 4.4 mmol/L (3.3-5.1); Sodium 142 mmol/L (135-145)
[2021-02-14 14:54] LABS: Alanine Aminotransferase 26 U/L (0-31); Albumin Level 4.5 g/dL (3.5-5.0); Alkaline Phosphatase 78 U/L (39-117); Aspartate Amino Transferase 43 U/L (5-31); Bilirubin Direct 0.2 mg/dL (0.0-0.5); Bilirubin Total 0.7 mg/dL (0.0-1.0); Lipase 11 U/L (8-78); Magnesium 1.9 mg/dL (1.6-2.6); Total Protein 7.7 g/dL (6.5-8.0)
[2021-02-14 14:58] LABS: Troponin-I High Sensitivity 11.2 ng/L (<3.5-17.0)
== END 2021-02-14 15:30 | disposition home or self-care (01) ==
PROVIDERS: Emergency Provider Emergency Medicine; PCP Internal Medicine
DX: J01.00 Acute maxillary sinusitis, unspecified (principal); E86.0 Dehydration; R42 Dizziness and giddiness; Z79.899 Other long term (current) drug therapy; Z20.822 Contact with and (suspected) exposure to COVID-19
CPT/HCPCS: 36415; 70450; 80048; 80076; 83690; 83735; 84484; 85025; 87635; 93005; 96360; 99283; 99284

== ENCOUNTER 2021-02-20 06:32 | Day surgery (SDC) | payer MEDICARE, SELFPAY ==
[2021-02-14 10:54] VITALS: BMI 34.8
--- NOTE | 2021-02-19 08:39 | HO.ANESPROP2 ---
Documented by User: Argenis Kilpatrick NP 02/19/21 08:41 HPI - Anesthesia Eval Consult details Narrative: 70yo F for Colonoscopy [facility] Active Problems Active Problems: All Active Problems (Updated 02/15/21 @ 00:01 by Janet Robles) GERD (gastroesophageal reflux disease) (Acute) Tubular adenoma of colon (Acute) Past Medical History Medical History Borderline diabetes COVID-19 vaccine series completed High cholesterol HTN (hypertension) Lumbar degenerative disc disease Psoriatic arthritis Family History Family History Mother Diabetes Father Diabetes Surgical History Surgical History H/O colonoscopy History of back surgery History of esophagogastroduodenoscopy (EGD) Social History Social History Household Members: None Alcohol intake: never Patient Tobacco Use Status: Never used Tobacco Use of substances other than those prescribed or required for medical reasons: No Advance Directives Information Provided: No Meds Allergies Allergy/AdvReac Type Severity Reaction Status Date / Time aspirin [ASA] AdvReac Intermediate STOMACH Verified 02/20/21 06:39 UPSET, gi upset Home Medications Medication Instructions Recorded Confirmed Last Taken Type amlodipine 10 mg tablet 1 tab PO DAILY 02/14/21 02/14/21 02/20/21 05:30 History atenolol 100 mg tablet 1 tab PO DAILY 02/14/21 02/14/21 Unknown History atorvastatin 20 mg tablet 1 tab PO DAILY 02/14/21 02/14/21 Unknown History cholecalciferol (vitamin D3) 25 1 cap PO DAILY 02/14/21 02/14/21 Unknown History mcg (1,000 unit) capsule (Vitamin D3) ergocalciferol (vitamin D2) 1,250 1 cap PO QWEEK 02/14/21 02/14/21 Unknown History mcg (50,000 unit) capsule folic acid 1 mg tablet 1 tab PO DAILY 02/14/21 02/14/21 Unknown History furosemide 20 mg tablet 1 tab PO DAILY 02/14/21 02/14/21 Unknown History ibuprofen 800 mg tablet 1 tab PO TID 02/14/21 02/14/21 Unknown History lisinopril 40 mg tablet 1 tab PO DAILY 02/14/21 02/14/21 Unknown History methotrexate sodium 2.5 mg tablet 4 tab PO QWEEK 02/14/21 02/14/21 Unknown History nabumetone 750 mg tablet 1 tab PO BID PRN 02/14/21 02/14/21 Unknown History prazosin 1 mg capsule 1 cap PO TID 02/14/21 02/14/21 Unknown History Exam Exam Date and Time: February 19, 2021 0839 Height,Weight and Vital Signs: Height 5 ft 6 in Weight 97.976 kg Pertinent Lab Results Pertinent Lab Results: Laboratory Tests 02/14/21 02/14/21 14:17 14:17 WBC 9.1 Hgb 13.8 Hct 39.8 Plt Count 211 Sodium 142 Potassium 4.4 Chloride 106 Carbon Dioxide 27 BUN 13 D Creatinine 1.02 Narrative Narrative: EKG 01/2021 Vent. Rate : 057 BPM ? ? Atrial Rate : 057 BPM ?? P-R Int : 148 ms? QRS Dur : 098 ms ? ? QT Int : 434 ms ? ? ? P-R-T Axes : 050 -19 030 degrees ?? QTc Int : 422 ms ? Sinus bradycardia Moderate voltage criteria for LVH, may be normal variant Nonspecific T wave abnormality Abnormal ECG When compared with ECG of 09-NOV-2020 16:35, Nonspecific T wave abnormality, improved in Lateral leads Assessment and Plan Assessment Anesthesia Assessment: Chart Reviewed Documented by User: Radha Ardon MD 02/20/21 07:27 [facility] Past Medical History Medical History Borderline diabetes COVID-19 vaccine series completed High cholesterol HTN (hypertension) Lumbar degenerative disc disease Psoriatic arthritis Family History Family History Mother Diabetes Father Diabetes Family history of problems with anesthesia: No Surgical History Surgical History H/O colonoscopy History of back surgery History of esophagogastroduodenoscopy (EGD) History of Problems with Anesthesia: No Social History Social History Household Members: None Alcohol intake: never Patient Tobacco Use Status: Never used Tobacco Use of substances other than those prescribed or required for medical reasons: No Advance Directives Information Provided: No Meds Allergies Allergy/AdvReac Type Severity Reaction Status Date / Time aspirin [ASA] AdvReac Intermediate STOMACH Verified 02/20/21 06:39 UPSET, gi upset Home Medications Medication Instructions Recorded Confirmed Last Taken Type amlodipine 10 mg tablet 1 tab PO DAILY 02/14/21 02/14/21 02/20/21 05:30 History atenolol 100 mg tablet 1 tab PO DAILY 02/14/21 02/14/21 Unknown History atorvastatin 20 mg tablet 1 tab PO DAILY 02/14/21 02/14/21 Unknown History cholecalciferol (vitamin D3) 25 1 cap PO DAILY 02/14/21 02/14/21 Unknown History mcg (1,000 unit) capsule (Vitamin D3) ergocalciferol (vitamin D2) 1,250 1 cap PO QWEEK 02/14/21 02/14/21 Unknown History mcg (50,000 unit) capsule folic acid 1 mg tablet 1 tab PO DAILY 02/14/21 02/14/21 Unknown History furosemide 20 mg tablet 1 tab PO DAILY 02/14/21 02/14/21 Unknown History ibuprofen 800 mg tablet 1 tab PO TID 02/14/21 02/14/21 Unknown History lisinopril 40 mg tablet 1 tab PO DAILY 02/14/21 02/14/21 Unknown History methotrexate sodium 2.5 mg tablet 4 tab PO QWEEK 02/14/21 02/14/21 Unknown History nabumetone 750 mg tablet 1 tab PO BID PRN 02/14/21 02/14/21 Unknown History prazosin 1 mg capsule 1 cap PO TID 02/14/21 02/14/21 Unknown History Exam Height,Weight and Vital Signs: Height 5 ft 6 in Weight 97.976 kg Vital Signs Temp Pulse Resp BP Pulse Ox 09/21/21 06:53 97.1 F 55 18 139/79 97 Airway Mallampati Class: II TM Dist: >3cm Neck ROM: Full Loose/Missing/Broken Teeth: Yes (Some missing) Heart: RRR Lungs: CTAB Assessment and Plan Assessment Anesthesia Assessment: Anesthesia Plan Discussed Final Anesthetic Review Family History of Problems with Anesthesia: No History of Problems with Anesthesia: No NPO: Yes ASA Class: II Final Preanesthetic Review: No Changes in Pt Med Stat, Meds/Allgs Chart Reviewed, Consent Obtained/Reviewed and Anes Risks/Benef Reviewed Patient Risk: Low Procedure Risk: Low Assessment/Block/Sedation in SS: Assess/Block/Sedation-SS Anesthetic Plan Anesthetic Plan: MAC: Disposition: Standard PACU
[2021-02-20 06:53] VITALS: BP 139/79; PULSE 55; RESP 18; TEMP 36.2; O2SAT 97
[2021-02-20] MEDS: Lactated Ringers 1,000 ML 100 ML IVCONT (07:03)
--- NOTE | 2021-02-20 07:20 | P.HPSUR_ITS ---
Pre-Procedural Eval Section A Date of Service: 02/20/21 The patient is an INPATIENT: No The History & Physical has been completed within 30 days and I have reviewed it.: No Section B Chief Complaint: Colon cancer screening, Tubular Adenoma of colon Details of Present Illness: Colon cancer screening, history of colon polyps Relevant Family History (Specify if Yes): No Relevant Social History: None Present Medications: see Short Stay Collaborative assessment Medical History: Significant History (High cholesterol HTN (hypertension) Lumbar degenerative disc disease Psoriatic arthritis) History of Previous Operations: Relevant previous surgery/procedure and date(s) (History of colonoscopy, history of EGD, back surgery) Allergies: Allergies Allergy/AdvReac Type Severity Reaction Status Date / Time aspirin [ASA] AdvReac Intermediate STOMACH Verified 02/20/21 06:39 UPSET, gi upset Review of Systems Sugical H&P ROS: Negative: Constitution, Cardiovascular, Respiratory and G astrointestinal Exam Surgical H&P Exam: Normal: Heart, Normal: Lungs, Normal: Extremities and Normal: Abdomen Plan Diagnosis/Plan: Unchanged I have reviewed the history and physical and performed a pertinent physical examination on my patient. No changes have occurred unless specified.
--- NOTE | 2021-02-20 07:21 | W.PM.OPN ---
Operative Note Operative Note Date of Service: 02/20/21 Narrative: Pre-op diagnosis:?Colon cancer screening, history of colon polyps Post-op diagnosis:?other (Diverticulosis, hemorrhoids) Procedure:? COLONOSCOPY TILL CECUM Consent: Indications for the procedure and potential complications of bleeding, perforation, reaction to medications and missed diagnosis were discussed with the patient and informed consent was obtained. Instrument: Olympus PCF H 190 L variable stiffness pediatric colonoscope Monitoring: Vital signs and clinical assessment, intermittent blood pressure monitoring, continuous EKG monitoring, Pulse oximetry and Carbon Dioxide monitoring were done throughout the procedure. Colon withdrawl time was 19 minutes. Procedure: The patient was placed in the left lateral decubitis position and pre-procedure medications were administered. After a digital rectal examination of the ano-rectum, the video colonoscope was inserted into the rectum and advanced through the colon to the cecum. The colonoscope was slowly withdrawn in a retrograde panoramic fashion and the colon mucosa was carefully examined including a retroflexed view of the rectum. Findings and interventions are described below. Procedure Difficulty: Without difficulty Findings: Terminal Ileum: Not evaluated Cecum:? Normal Ascending Colon:? Normal Transverse Colon:? Normal Descending Colon:? Normal Sigmoid Colon:? Moderate diverticulosis Rectum:? Normal Ano-rectum:? Moderate internal hemorrhoids Colon preparation: ? Fair despite copious irrigation - no large lesion seen. Impression and Post Procedure Diagnosis: Colonoscopy Findings: No polyps were detected Moderate diverticulosis seen in the sigmoid colon Moderate hemorrhoids on retroflexed exam. Plan: Await pathology results Patient has an appointment on 03/06/21 in the GI Clinic with NARGIS Liao NP . Repeat Colonoscopy in 5 years if polyps due to fair prep.. Above findings were reviewed with the patient and diverticulosis handout was given in the discharge area Surgeon:?Elizabeth Sprague MD Anesthesia:?MAC (Anna Ortez, JULIETH) Was an Regional Tanker Truck Driver used for this Procedure?:?Yes Regional Tanker Truck Driver:?Kaylyn Arita Estimated blood loss (mL):?0 Pathology:?none sent Condition:?stable Disposition:?PACU
[2021-02-20 08:15] VITALS: BP 91/45; PULSE 62; RESP 16; TEMP 36.5; O2SAT 98
[2021-02-20 08:30] VITALS: BP 113/67; PULSE 59; RESP 18; TEMP 36.1; O2SAT 96
== END 2021-02-20 09:20 | disposition home or self-care (01) ==
PROVIDERS: PCP Internal Medicine; Visit Provider Internal Medicine Gastroenterology
PROC: 0DJD8ZZ Inspection of Lower Intestinal Tract, Via Natural or Artificial Opening Endoscopic (ICD-10-PCS; CPT 45378; principal; 2021-02-20 07:30)
DX: Z12.11 Encounter for screening for malignant neoplasm of colon (principal); K57.30 Diverticulosis of large intestine without perforation or abscess without bleeding; K64.8 Other hemorrhoids; Z86.010 Personal history of colon polyps; I10 Essential (primary) hypertension; E78.5 Hyperlipidemia, unspecified; I87.2 Venous insufficiency (chronic) (peripheral); Z79.899 Other long term (current) drug therapy
CPT/HCPCS: G0105

== ENCOUNTER → 2021-03-06 10:37 | Outpatient (BNVA) | payer MEDICARE, SELFPAY | PROVIDERS: Referring Provider Internal Medicine; Visit Provider Nurse Practitioner | DX: K21.9 Gastro-esophageal reflux disease without esophagitis (principal); D12.6 Benign neoplasm of colon, unspecified | CPT/HCPCS: 99212 ==

== ENCOUNTER 2021-03-14 10:26 | Outpatient (REF) | payer MEDICARE, SELFPAY ==
--- NOTE | ~2021-03-14 | MM_ITS ---
EXAMINATION: MM SCREENING DIGITAL BREAST TOMOSYNTHESIS, BILATERAL CLINICAL INFORMATION: Screening. Asymptomatic. The lifetime risk of breast cancer based on the Tyrer-Cuzick Model is 2%. COMPARISON: Mammography: 12/06/2019, 08/07/2018, 07/22/2017 TECHNIQUE: Digital breast tomosynthesis is performed in both the craniocaudal and mediolateral oblique views along with computer-aided detection (CAD). Synthesized 2D images are generated from the tomosynthesis. FINDINGS: There are scattered areas of fibroglandular density (ACR BI-RADS breast composition Category b). There are no significant masses, abnormal calcifications, or other abnormalities. Parenchymal pattern is similar to prior studies. No significant changes. MM/MM tomosynthesis screening BI IMPRESSION: No mammographic evidence of malignancy. ASSESSMENT: BI-RADS 1: Negative RECOMMENDATION: Routine annual mammography screening. This patient's information was entered into a reminder system with a target due date for their next mammogram.
== END 2021-03-14 10:27 | disposition home or self-care (01) ==
LOC: HO.MAMMO 10:26
PROVIDERS: Visit Provider Internal Medicine
DX: Z12.31 Encounter for screening mammogram for malignant neoplasm of breast (principal)
CPT/HCPCS: 77063; 77067

== ENCOUNTER 2021-04-12 19:22 | Emergency (ER) | payer MEDICARE, SELFPAY ==
--- NOTE | 2021-04-12 | ECG_ITS ---
Test Reason : CHEST PAIN Blood Pressure : / mmHG Vent. Rate : 076 BPM Atrial Rate : 076 BPM P-R Int : 148 ms QRS Dur : 098 ms QT Int : 412 ms P-R-T Axes : 047 -21 062 degrees QTc Int : 463 ms Normal sinus rhythm Moderate voltage criteria for LVH, may be normal variant ( R in aVL , Davon product ) Nonspecific T wave abnormality Abnormal ECG When compared with ECG of 14-FEB-2021 14:09, No significant change was found Heart rate has increased Referred By: Generic ED Physician Electronically Signed By:CASA SIMMS MD
--- NOTE | ~2021-04-12 | XR_ITS ---
EXAMINATION: XR CHEST CLINICAL INFORMATION: Chest pain. COMPARISON: Chest radiograph dated from 11/09/2020. TECHNIQUE: PA view of the chest was obtained. FINDINGS: Unchanged cardiomediastinal silhouette. Prominent bronchovascular markings in the right lung base, similar to prior. No focal consolidation, pleural effusion or pneumothorax. No acute osseous findings. XR/XR chest 1V IMPRESSION: No acute cardiopulmonary findings.
[2021-04-12 19:26] VITALS: BP 132/78; PULSE 84; RESP 18; TEMP 37.3; O2SAT 95; BMI 34.3
[2021-04-12 20:14] VITALS: BP 129/59; PULSE 73; RESP 18; TEMP 37.4; O2SAT 97
--- NOTE | 2021-04-12 20:20 | ED.CHESTPAIN ---
HPI - Chest Pain General Chief Complaint: Chest Pain Stated Complaint: cp Time Seen by Provider: 04/12/21 20:20 Source: patient Mode of arrival: ambulatory Limitations: no limitations History of Present Illness HPI narrative: Patient has no hypertension no known coronary artery disease with history of chest pain off and on stress test few years ago was negative complaining of left-sided chest pain started at 08:00 today off and on radiating to the left shoulder and neck no nausea no vomiting no diaphoresis feels slight short of breath had the covid booster yesterday no fever or chills no cough no fever Related Data Home Medications Medication Instructions Recorded Confirmed amlodipine 10 mg tablet 1 tab PO DAILY 02/14/21 02/14/21 atenolol 100 mg tablet 1 tab PO DAILY 02/14/21 02/14/21 atorvastatin 20 mg tablet 1 tab PO DAILY 02/14/21 02/14/21 cholecalciferol (vitamin D3) 25 1 cap PO DAILY 02/14/21 02/14/21 mcg (1,000 unit) capsule (Vitamin D3) ergocalciferol (vitamin D2) 1,250 1 cap PO QWEEK 02/14/21 02/14/21 mcg (50,000 unit) capsule folic acid 1 mg tablet 1 tab PO DAILY 02/14/21 02/14/21 furosemide 20 mg tablet 1 tab PO DAILY 02/14/21 02/14/21 ibuprofen 800 mg tablet 1 tab PO TID 02/14/21 02/14/21 lisinopril 40 mg tablet 1 tab PO DAILY 02/14/21 02/14/21 methotrexate sodium 2.5 mg tablet 4 tab PO QWEEK 02/14/21 02/14/21 nabumetone 750 mg tablet 1 tab PO BID PRN 02/14/21 02/14/21 prazosin 1 mg capsule 1 cap PO TID 02/14/21 02/14/21 Previous Rx's Medication Instructions Recorded tramadol 50 mg tablet 50 mg PO Q6H PRN #20 tab 09/16/20 pantoprazole 40 mg tablet,delayed 40 mg PO DAILY 90 Days #90 tab 02/06/21 release cefuroxime axetil 500 mg tablet 500 mg PO BID 10 Days #20 tab 02/14/21 meclizine 25 mg tablet 25 mg PO TID PRN #30 tab 02/14/21 ondansetron 4 mg disintegrating 4 mg PO Q8H PRN #20 tab 02/14/21 tablet Allergies Allergy/AdvReac Type Severity Reaction Status Date / Time aspirin [ASA] AdvReac Intermediate STOMACH Verified 04/12/21 19:26 UPSET, gi upset Review of Systems Review of Systems: Yes all other systems are reviewed and are negative COUNTS INCLUDE 234 BEDS AT THE [facility] Past Medical History Medical History Borderline diabetes COVID-19 vaccine series completed High cholesterol HTN (hypertension) Lumbar degenerative disc disease Psoriatic arthritis Surgical History H/O colonoscopy History of back surgery History of esophagogastroduodenoscopy (EGD) Family History Family History Mother Diabetes Father Diabetes Social History Social History Household Members: None Alcohol intake: never Patient Tobacco Use Status: Never used Tobacco Advance Directives: No Advance Directives Information Provided: Yes Physical Exam Vital Signs: Vital Signs: Last Vital Signs Temp 99.5 F 04/12/21 20:45 Pulse 79 04/12/21 20:45 Resp 16 04/12/21 20:45 BP 116/64 04/12/21 20:45 Pulse Ox 97 04/12/21 20:45 Body Mass Index 34.3 Appearance: Alert. Oriented X3. No acute distress. Eyes: PERRLA, No Nystagmus ENT: Pharynx normal. Oral Mucosa moist Neck: Normal inspection. Neck supple. CVS: Normal heart rate and rhythm. Pulses normal. Respiratory: No respiratory distress. Equal air entry bilateral, no wheezing/rales/rhonchi Abdomen: Soft and nontender. Bowel sounds are present, no mass palpable, no CVA tenderness Skin: Skin warm and dry. Normal skin color. Normal skin turgor. Extremities: No lower extremity edema. No calf tenderness Neuro: Oriented X 3. No motor deficit. MDM - Chest Pain MDM Narrative Medical decision making narrative: Patient has atypical chest pain. Here multiple times for similar pain no significant change in the troponin as compared to the past EKG without any acute ischemic changes likely normal cardiac pain advised patient to follow with photographic intelligence officer for further evaluation including stress test Lab Data Attestation: I reviewed the patient's lab results. Result diagrams: 04/12/21 20:45 04/12/21 20:45 Labs: Lab Results 04/12/21 04/12/21 04/12/21 Range/Units 20:45 20:45 20:45 WBC 6.7 (4.8-10.8) X10*3/uL RBC 4.46 (4.20-5.50) X10*6/uL Hgb 14.2 (12.0-16.0) g/dl Hct 41.7 (37.0-47.0) % MCV 93.5 (80.0-98.0) fL MCH 31.8 (27.0-33.0) pg MCHC 34.1 (31.0-35.0) g/dl RDW 12.9 (11.0-16.0) % Plt Count 189 (160-400) X10*3/uL MPV 10.1 (9.4-12.3) fL Immature Gran % (Auto) 0.3 (0.0-0.4) % Neut % (Auto) 60.5 (45-73) % Lymph % (Auto) 27.9 (20-40) % Miller % (Auto) 9.1 (2-11) % Eos % (Auto) 1.6 (0-4) % Baso % (Auto) 0.6 (0-2) % Lymph # (Auto) 1.9 (1.2-4.9) X10*3/uL Miller # (Auto) 0.6 (0.1-1.2) X10*3/uL Eos # (Auto) 0.1 (0.0-0.4) X10*3/uL Baso # (Auto) 0.0 (0.0-0.2) X10*3/uL Abs Immat Gran (auto) 0.02 (0.00-0.03) X10*3/uL Absolute Neuts (auto) 4.1 (2.0-8.3) x10*3/uL Absolute Nucleated RBC 0.000 (0.0-0.012) X10*3/uL Nucleated RBC % (auto) 0.0 (0.0-0.2) /100WBC D-Dimer NG/ML Sodium 137 (135-145) mmol/L Potassium 4.5 (3.3-5.1) mmol/L Chloride 104 (96-108) mmol/L Carbon Dioxide 23 (22-29) mmol/L Anion Gap 15 (12-20) BUN 15 (9-16) mg/dL Creatinine 1.07 (0.5-1.4) mg/dL Estim Creat Clear Calc 56.4 Estimated GFR 51 Random Glucose 223 H (60-115) mg/dL Calcium 9.8 (8.4-10.2) mg/dL Troponin I High Sens 12.1 (<3.5-17.0) ng/L B-Natriuretic Peptide 41 (<100) pg/mL 04/12/21 Range/Units 20:45 WBC (4.8-10.8) X10*3/uL RBC (4.20-5.50) X10*6/uL Hgb (12.0-16.0) g/dl Hct (37.0-47.0) % MCV (80.0-98.0) fL MCH (27.0-33.0) pg MCHC (31.0-35.0) g/dl RDW (11.0-16.0) % Plt Count (160-400) X10*3/uL MPV (9.4-12.3) fL Immature Gran % (Auto) (0.0-0.4) % Neut % (Auto) (45-73) % Lymph % (Auto) (20-40) % Miller % (Auto) (2-11) % Eos % (Auto) (0-4) % Baso % (Auto) (0-2) % Lymph # (Auto) (1.2-4.9) X10*3/uL Miller # (Auto) (0.1-1.2) X10*3/uL Eos # (Auto) (0.0-0.4) X10*3/uL Baso # (Auto) (0.0-0.2) X10*3/uL Abs Immat Gran (auto) (0.00-0.03) X10*3/uL Absolute Neuts (auto) (2.0-8.3) x10*3/uL Absolute Nucleated RBC (0.0-0.012) X10*3/uL Nucleated RBC % (auto) (0.0-0.2) /100WBC D-Dimer < 200 NG/ML Sodium (135-145) mmol/L Potassium (3.3-5.1) mmol/L Chloride (96-108) mmol/L Carbon Dioxide (22-29) mmol/L Anion Gap (12-20) BUN (9-16) mg/dL Creatinine (0.5-1.4) mg/dL Estim Creat Clear Calc Estimated GFR Random Glucose (60-115) mg/dL Calcium (8.4-10.2) mg/dL Troponin I High Sens (<3.5-17.0) ng/L B-Natriuretic Peptide (<100) pg/mL ECG Data ECG #1: Interpretation: Normal sinus rhythm heart rate 76 beats per minute LVH ,no acute ST T wave changes no acute ischemia Discharge Plan Discharge Clinical Impression: Chest pain Patient Disposition: Home, Self-Care Instructions: Chest Pain (ED) Additional Instructions: Continue medications and follow up with PCP/photographic intelligence officer for further workup including stress test Prescriptions: No Action pantoprazole 40 mg tablet,delayed release (DR/EC) 40 mg PO DAILY 90 Days Qty: 90 RF: 0 meclizine 25 mg tablet 25 mg PO TID PRN (Reason: dizziness) Qty: 30 RF: 0 ondansetron 4 mg tablet,disintegrating 4 mg PO Q8H PRN (Reason: nausea and vomiting) Qty: 20 RF: 0 cefuroxime axetil 500 mg tablet 500 mg PO BID 10 Days Qty: 20 RF: 0 atorvastatin 20 mg tablet 1 tab PO DAILY RF: 0 nabumetone 750 mg tablet 1 tab PO BID PRN (Reason: pain) RF: 0 ibuprofen 800 mg tablet 1 tab PO TID RF: 0 atenolol 100 mg tablet 1 tab PO DAILY RF: 0 prazosin 1 mg capsule 1 cap PO TID RF: 0 methotrexate sodium 2.5 mg tablet 4 tab PO QWEEK RF: 0 amlodipine 10 mg tablet 1 tab PO DAILY RF: 0 folic acid 1 mg tablet 1 tab PO DAILY RF: 0 furosemide 20 mg tablet 1 tab PO DAILY RF: 0 ergocalciferol (vitamin D2) 1,250 mcg (50,000 unit) capsule 1 cap PO QWEEK RF: 0 lisinopril 40 mg tablet 1 tab PO DAILY RF: 0 cholecalciferol (vitamin D3) [Vitamin D3] 25 mcg (1,000 unit) capsule 1 cap PO DAILY RF: 0 tramadol 50 mg tablet 50 mg PO Q6H PRN (Reason: pain) Qty: 20 RF: 0 Discharge Date/Time: 04/12/21 22:09
--- NOTE | 2021-04-12 20:29 | PC.NURSE ---
Pt. presents with chest pain starting at 0800 at rest. CP is left anterior, constant, nonradiating, and reproducible. No associated symptoms. denies increased stress or anxiety. No peripheral edema noted. LS are clear on exam. SPeaking in full, clear sentences. NAD
[2021-04-12] MEDS: Aspirin 81 MG TAB.CHEW 162 MG PO (20:43)
[2021-04-12 20:45] VITALS: BP 116/64; PULSE 79; RESP 16; TEMP 37.5; O2SAT 97
[2021-04-12 21:09] LABS: MANUAL DIFF FLAG NO
[2021-04-12 21:11] LABS: Basophils Percent Auto 0.6 % (0-2); Eosinophils Absolute Auto 0.1 X10*3/uL (0.0-0.4); Eosinophils Percent Auto 1.6 % (0-4); Hematocrit 41.7 % (37.0-47.0); Hemoglobin 14.2 g/dl (12.0-16.0); Imm Gran Abs Auto 0.02 X10*3/uL (0.00-0.03); Imm Gran Pct Auto 0.3 % (0.0-0.4); Lymphocytes Absolute Auto 1.9 X10*3/uL (1.2-4.9); Lymphocytes Percent Auto 27.9 % (20-40); Mean Corpuscular HGB Conc 34.1 g/dl (31.0-35.0); Mean Corpuscular Hemoglobin 31.8 pg (27.0-33.0); Mean Corpuscular Volume 93.5 fL (80.0-98.0); Mean Platelet Volume 10.1 fL (9.4-12.3); Monocytes Absolute Auto 0.6 X10*3/uL (0.1-1.2); Monocytes Percent Auto 9.1 % (2-11); Neutrophils Absolute Auto 4.1 x10*3/uL (2.0-8.3); Neutrophils Percent Auto 60.5 % (45-73); Platelet Count 189 X10*3/uL (160-400); Red Blood Count 4.46 X10*6/uL (4.20-5.50); Red Cell Distribution Width 12.9 % (11.0-16.0); White Blood Count 6.7 X10*3/uL (4.8-10.8)
[2021-04-12 21:22] LABS: D Dimer < 200 NG/ML
[2021-04-12 21:27] LABS: Anion Gap 15 (12-20); Blood Urea Nitrogen 15 mg/dL (9-16); Calcium 9.8 mg/dL (8.4-10.2); Carbon Dioxide 23 mmol/L (22-29); Chloride 104 mmol/L (96-108); Creatinine Clr Calc Pharmacy 56.4; Estimated Glomerular Filt Rate 51; Glucose Random 223 mg/dL (60-115); Potassium 4.5 mmol/L (3.3-5.1); Sodium 137 mmol/L (135-145)
[2021-04-12 21:38] LABS: B Type Natriuretic Peptide 41 pg/mL (<100); Troponin-I High Sensitivity 12.1 ng/L (<3.5-17.0)
== END 2021-04-12 22:09 | disposition home or self-care (01) ==
PROVIDERS: Emergency Provider Internal Medicine; PCP Internal Medicine
DX: R07.9 Chest pain, unspecified (principal); I10 Essential (primary) hypertension
CPT/HCPCS: 36415; 71045; 80048; 83880; 84484; 85025; 85379; 93005; 99283; 99284

== ENCOUNTER 2021-04-23 10:38 | Outpatient (REF) | payer MEDICARE, SELFPAY ==
--- NOTE | ~2021-04-23 | XR_ITS ---
EXAMINATION: XR LUMBOSACRAL SPINE WITH OBLIQUES CLINICAL INFORMATION: Low back pain COMPARISON: CT abdomen and pelvis 11/27/2018 TECHNIQUE: Lumbar spine is imaged in 5 views FINDINGS: There are postsurgical changes consistent with prior posterior lumbar fusion with bilateral pedicle screws L4 and S1 and bilateral carotid with intervening disc spaces. The hardware is intact. Lumbar lordosis is normal. There is no vertebral compression, spondylolisthesis, destructive process. There are degenerative disc changes lower thoracic spine and at L1-L2 and L2-L3 with disc narrowing and endplate sclerosis and vertebral spurring. The SI joints and visualized sacrum are unremarkable. XR/XR lumbar spine 4V min IMPRESSION: 1. Status post lumbosacral fusion. Hardware intact. No destructive process. 2. Degenerative disc changes T11-L3.
== END 2021-04-23 10:39 | disposition home or self-care (01) ==
LOC: HO.XRAY 10:38
PROVIDERS: Absent Provider Internal Medicine Rheumatology; PCP Internal Medicine; Visit Provider Internal Medicine
DX: M54.50 Low back pain, unspecified (principal)
CPT/HCPCS: 72110

== ENCOUNTER 2021-07-06 13:24 | Emergency (ER) | payer MEDICARE, SELFPAY ==
--- NOTE | ~2021-07-06 | XR_ITS ---
EXAMINATION: XR CERVICAL SPINE CLINICAL INFORMATION: Neck pain. COMPARISON: None TECHNIQUE: 3 views of the cervical spine were obtained. FINDINGS: There is mild straightening of cervical lordosis. The vertebral heights and alignment is normal. There is mild loss of C5-C6 disc height with ventral spondylosis. Rest of the disc heights are maintained normal. No visible acute fracture, dislocation or lytic process seen. The prevertebral and paravertebral soft tissues are normal. XR/XR cervical spine 3V IMPRESSION: Degenerative disc changes C5-C6 disc levels with moderate ventral spondylosis. No acute fracture or dislocation seen.
[2021-07-06 14:00] VITALS: BP 121/75; PULSE 65; RESP 18; TEMP 36.7; O2SAT 97; BMI 34.5
--- NOTE | 2021-07-06 14:33 | ED_ITS ---
HPI - Neck Pain/Injury General Chief Complaint: Neck Pain/Injury Stated Complaint: back of head pain down into neck Time Seen by Provider: 07/06/21 14:31 History of Present Illness HPI Narrative: Patient complains of pain and spasm in the left side of her neck making it hard to rotate her head, she woke this 2 days ago she has no numbness weakness or tingling she has had no injury no fevers, pain does not radiate, there is no headache no chest pain Related Data Home Medications Medication Instructions Recorded Confirmed amlodipine 10 mg tablet 1 tab PO DAILY 02/14/21 02/14/21 atenolol 100 mg tablet 1 tab PO DAILY 02/14/21 02/14/21 atorvastatin 20 mg tablet 1 tab PO DAILY 02/14/21 02/14/21 cholecalciferol (vitamin D3) 25 1 cap PO DAILY 02/14/21 02/14/21 mcg (1,000 unit) capsule (Vitamin D3) ergocalciferol (vitamin D2) 1,250 1 cap PO QWEEK 02/14/21 02/14/21 mcg (50,000 unit) capsule folic acid 1 mg tablet 1 tab PO DAILY 02/14/21 02/14/21 furosemide 20 mg tablet 1 tab PO DAILY 02/14/21 02/14/21 ibuprofen 800 mg tablet 1 tab PO TID 02/14/21 02/14/21 lisinopril 40 mg tablet 1 tab PO DAILY 02/14/21 02/14/21 methotrexate sodium 2.5 mg tablet 4 tab PO QWEEK 02/14/21 02/14/21 nabumetone 750 mg tablet 1 tab PO BID PRN 02/14/21 02/14/21 prazosin 1 mg capsule 1 cap PO TID 02/14/21 02/14/21 Previous Rx's Medication Instructions Recorded tramadol 50 mg tablet 50 mg PO Q6H PRN #20 tab 09/16/20 cefuroxime axetil 500 mg tablet 500 mg PO BID 10 Days #20 tab 02/14/21 meclizine 25 mg tablet 25 mg PO TID PRN #30 tab 02/14/21 ondansetron 4 mg disintegrating 4 mg PO Q8H PRN #20 tab 02/14/21 tablet pantoprazole 40 mg tablet,delayed 40 mg PO DAILY #90 tab 05/01/21 release Allergies Allergy/AdvReac Type Severity Reaction Status Date / Time aspirin [ASA] AdvReac Intermediate STOMACH Verified 04/12/21 19:26 UPSET, gi upset Review of Systems Verdana 4l Review of Systems: Verdana 4d Verdana 4d Positive for neck pain Negatives are no fever no chills no dizziness no weakness no headache no numbness weakness or tingling no fainting no feeling faint no radiating pain no chest pain no shortness of breath no changes to bowel or bladderbladder Yes all other systems are reviewed and are negative PMFSH Past Medical History Source: nursing notes reviewed Medical History Borderline diabetes COVID-19 vaccine series completed High cholesterol HTN (hypertension) Lumbar degenerative disc disease Psoriatic arthritis Surgical History H/O colonoscopy History of back surgery History of esophagogastroduodenoscopy (EGD) Family History Family History Mother Diabetes Father Diabetes Social History Social History Household Members: None Alcohol intake: never Patient Tobacco Use Status: Never used Tobacco Advance Directives: Yes Advance Directives Information Provided: Yes Advance Directives on File: No Physical Exam Verdana 4l Vital Signs: Verdana 4d Verdana 4d Vital Signs: Verdana 4d Verdana 4Bd Last Vital Signs Verdana 4d 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 4d Temp 98.1 F 07/06/21 14:00 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 4d Pulse 65 07/06/21 14:00 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 4d Resp 18 07/06/21 14:00 BP 121/75 07/06/21 14:00 Pulse Ox 97 07/06/21 14:00 BMI result Body Mass Index 34.5 General appearance is no acute distress Head is normocephalic atraumatic The head is nontender the pupils equal round reactive to light extraocular motions are intact The neck had left sided soft tissue paraspinal tenderness and some spasm, she could move her head up and down but it was painful to rotate her neck to the left and right Chest clear to auscultation bilateral No respiratory distress Extremities full range of motion x4 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 strength is 5/5 and symmetrical Motor is 5/5 x4 Sensation in extremities is intact and symmetrical, gait and balance were normal, interaction both expression and comprehension were normal Course Course Course Narrative: Patient with 2 days of musculoskeletal neck pain on the left side easily reproducible had an x-ray that did show some arthritic changes but no acute emergent changes Patient had no neurologic deficits no tingling and was discharged She has pain medicine at home so I added some muscle relaxer and she will follow with her doctor Discharge Plan Discharge Clinical Impression: Neck pain Patient Disposition: Home, Self-Care Additional Instructions: Follow closely with primary doctor for further evaluation, and possible physical therapy Neck x-ray did show some arthritis Return to the ER any time for any worse condition or any concerns Prescriptions: No Action pantoprazole 40 mg tablet,delayed release (DR/EC) 40 mg PO DAILY Qty: 90 0RF meclizine 25 mg tablet 25 mg PO TID PRN (Reason: dizziness) Qty: 30 0RF ondansetron 4 mg tablet,disintegrating 4 mg PO Q8H PRN (Reason: nausea and vomiting) Qty: 20 0RF cefuroxime axetil 500 mg tablet 500 mg PO BID 10 Days Qty: 20 0RF atorvastatin 20 mg tablet 1 tab PO DAILY 0RF nabumetone 750 mg tablet 1 tab PO BID PRN (Reason: pain) 0RF ibuprofen 800 mg tablet 1 tab PO TID 0RF atenolol 100 mg tablet 1 tab PO DAILY 0RF prazosin 1 mg capsule 1 cap PO TID 0RF methotrexate sodium 2.5 mg tablet 4 tab PO QWEEK 0RF amlodipine 10 mg tablet 1 tab PO DAILY 0RF folic acid 1 mg tablet 1 tab PO DAILY 0RF furosemide 20 mg tablet 1 tab PO DAILY 0RF ergocalciferol (vitamin D2) 1,250 mcg (50,000 unit) capsule 1 cap PO QWEEK 0RF lisinopril 40 mg tablet 1 tab PO DAILY 0RF cholecalciferol (vitamin D3) [Vitamin D3] 25 mcg (1,000 unit) capsule 1 cap PO DAILY 0RF tramadol 50 mg tablet 50 mg PO Q6H PRN (Reason: pain) Qty: 20 0RF
== END 2021-07-06 15:58 | disposition home or self-care (01) ==
PROVIDERS: Emergency Provider Emergency Medicine; PCP Internal Medicine
DX: M54.2 Cervicalgia (principal)
CPT/HCPCS: 72040; 99283

== ENCOUNTER → 2021-09-04 09:38 | Outpatient (BNVA) | payer MEDICARE, SELFPAY | PROVIDERS: PCP Internal Medicine; Referring Provider Internal Medicine; Visit Provider Nurse Practitioner | DX: K21.9 Gastro-esophageal reflux disease without esophagitis (principal); Z86.010 Personal history of colon polyps; Z79.899 Other long term (current) drug therapy | CPT/HCPCS: 99212 ==

== ENCOUNTER 2022-01-03 11:22 | Emergency (ER) | payer MEDICARE, SELFPAY ==
--- NOTE | ~2022-01-03 | XR_ITS ---
EXAMINATION: XR CHEST CLINICAL INFORMATION: Chest pain. COMPARISON: 04/12/2021 chest radiograph. TECHNIQUE: Frontal view of the chest was obtained. FINDINGS: No significant abnormality is noted involving the heart, lungs, mediastinum, bony thorax or soft tissues. XR/XR chest 1V IMPRESSION: No acute cardiopulmonary process.
[2022-01-03 11:25] VITALS: BMI 39.1
--- NOTE | 2022-01-03 11:25 | ECG_ITS ---
Test Reason : cp Blood Pressure : / mmHG Vent. Rate : 055 BPM Atrial Rate : 055 BPM P-R Int : 154 ms QRS Dur : 094 ms QT Int : 448 ms P-R-T Axes : 029 -17 026 degrees QTc Int : 428 ms Sinus bradycardia Minimal voltage criteria for LVH, may be normal variant ( R in aVL ) Nonspecific T wave abnormality Abnormal ECG When compared with ECG of 12-APR-2021 19:37, No significant change was found Referred By: Generic ED Physician Electronically Signed By:LION SHEPPARD MD
[2022-01-03 11:26] VITALS: BP 102/65; PULSE 57; RESP 16; TEMP 36.9; O2SAT 97; BMI 39.1
[2022-01-03 11:48] VITALS: PULSE 55; O2SAT 98
--- NOTE | 2022-01-03 11:49 | ED_ITS ---
HPI - Chest Pain General Chief Complaint: Chest Pain Stated Complaint: Chest pain Time Seen by Provider: 01/03/22 11:43 Source: patient and certified court/medical interpreter Mode of arrival: ambulatory Limitations: no limitations History of Present Illness HPI narrative: 71 yo female with hx of HTN, HLD, GERD, arthritis notes she woke up around 7am and felt pain from L posterior scapula area that is sharp hurts with movement and pleuritic in nature. She denies travel, trauma or any issues in the past like this. Did not take medications at home for pain prior to arrival. MD complaint: other (back pain ) Onset (ago): hour(s) (7am today ) Timing of current episode: constant Prior episodes: No Onset: during rest Pain location: other (L posterior thoracic back) Pain radiation: other (chest) Severity: moderate Quality: sharp Relieving factors: nothing Exacerbating factors: palpation and movement Associated symptoms: nausea Treatment prior to arrival: none Related Data Home Medications Medication Instructions Recorded Confirmed amlodipine 10 mg tablet 1 tab PO DAILY 02/14/21 02/14/21 atenolol 100 mg tablet 1 tab PO DAILY 02/14/21 02/14/21 atorvastatin 20 mg tablet 1 tab PO DAILY 02/14/21 02/14/21 cholecalciferol (vitamin D3) 25 1 cap PO DAILY 02/14/21 02/14/21 mcg (1,000 unit) capsule (Vitamin D3) ergocalciferol (vitamin D2) 1,250 1 cap PO QWEEK 02/14/21 02/14/21 mcg (50,000 unit) capsule folic acid 1 mg tablet 1 tab PO DAILY 02/14/21 02/14/21 furosemide 20 mg tablet 1 tab PO DAILY 02/14/21 02/14/21 ibuprofen 800 mg tablet 1 tab PO TID 02/14/21 02/14/21 lisinopril 40 mg tablet 1 tab PO DAILY 02/14/21 02/14/21 methotrexate sodium 2.5 mg tablet 4 tab PO QWEEK 02/14/21 02/14/21 nabumetone 750 mg tablet 1 tab PO BID PRN pain 02/14/21 02/14/21 prazosin 1 mg capsule 1 cap PO TID 02/14/21 02/14/21 Previous Rx's Medication Instructions Recorded tramadol 50 mg tablet 50 mg PO Q6H PRN pain #20 tabs 04/17/21 cefuroxime axetil 500 mg tablet 500 mg PO BID 10 days #20 tabs 02/14/21 meclizine 25 mg tablet 25 mg PO TID PRN dizziness #30 tabs 02/14/21 ondansetron 4 mg disintegrating 4 mg PO Q8H PRN nausea and 02/14/21 tablet vomiting #20 tabs pantoprazole 40 mg tablet,delayed 40 mg PO DAILY #90 tabs 09/04/21 release Allergies Allergy/AdvReac Type Severity Reaction Status Date / Time aspirin [ASA] AdvReac Intermediate STOMACH Verified 09/04/21 10:05 UPSET, gi upset Review of Systems Review of Systems: Constitutional : No Weight loss, No Fever, No Chills, ENT/Mouth : No Hearing loss, No Ear Pain, No Nasal Congestion, No Sinus Pain, No Hoarseness, No sore throat, No Rhinorrhea, No Swallowing Difficulty Cardiovascular : pos Chest Pain, No SOB Respiratory : No Cough, No Dyspnea Gastrointestinal : pos Nausea, No Vomiting, No Diarrhea, No abdominal Pain, No Hematochezia, No Melena Genitourinary : No Dysuria, No Urinary Frequency, No Hematuria, No Urinary Incontinence, Musculoskeletal : positive back pain Skin : No Skin Lesions, No rash Neuro : No Weakness, No Numbness, No Paresthesias, no loss of bowel or bladder incontinence, no saddle anesthesia All other systems reviewed and are negative [facility] Past Medical History Attestation statement: The following information was validated with the patient. Medical History Borderline diabetes COVID-19 vaccine series completed High cholesterol HTN (hypertension) Lumbar degenerative disc disease Psoriatic arthritis Surgical History (Updated 09/04/21 @ 10:01 by GASPER Andrews) H/O colonoscopy History of back surgery History of esophagogastroduodenoscopy (EGD) Family History Family History Mother Diabetes Father Diabetes Social History Social History Household Members: None Alcohol intake: never Patient Tobacco Use Status: Never used Tobacco Use of substances other than those prescribed or required for medical reasons: No Advance Directives: No Advance Directives Information Provided: No Physical Exam Vital Signs: Vital Signs: Last Vital Signs Temp 98.5 F 01/03/22 11:26 Pulse 55 01/03/22 11:48 Resp 16 01/03/22 11:26 BP 102/65 01/03/22 11:26 Pulse Ox 98 01/03/22 11:48 O2 Del Method 01/03/22 11:48 BMI result Body Mass Index 39.1 Appearance: Alert. Oriented X3. No acute distress. Eyes: Pupils equal, round and reactive to light. ENT: Pharynx normal. Neck: Normal inspection. Neck supple. CVS: Normal heart rate and rhythm. Pulses normal. Respiratory: No respiratory distress. Breath sounds normal. Back: ttp along posterior thoracic wall reproduces Abdomen: Soft and nontender. Skin: Skin warm and dry. Normal skin color. Normal skin turgor. Extremities: No lower extremity edema. No calf ttp Neuro: Oriented X 3. No motor deficit. No sensory deficit. Course Course Course Narrative: ddimer negative repeat trop pending 230 - signed out to Dr. Comer MDM - Chest Pain MDM Narrative Medical decision making narrative: 71 yo female with hx of HTN, HLD, GERD, arthritis here with c/o L posterior thoracic back pain - pleuritic but also reproducible in nature at this time will obtain troponin, EKG, CXR, ddimer - atypical for ACS, low susp for PE, possible MSK. Dispo per results and findings. Lab Data Result diagrams: 01/03/22 11:55 01/03/22 11:55 Labs: Lab Results 01/03/22 01/03/22 01/03/22 Range/Units 11:55 11:55 11:55 WBC 8.4 (4.8-10.8) X10*3/uL RBC 4.50 (4.20-5.50) X10*6/uL Hgb 14.4 (12.0-16.0) g/dl Hct 42.1 (37.0-47.0) % MCV 93.6 (80.0-98.0) fL MCH 32.0 (27.0-33.0) pg MCHC 34.2 (31.0-35.0) g/dl RDW 13.3 (11.0-16.0) % Plt Count 219 (160-400) X10*3/uL MPV 10.1 (9.4-12.3) fL Immature Gran % (Auto) 0.4 (0.0-0.4) % Neut % (Auto) 57.4 (45-73) % Lymph % (Auto) 30.3 (20-40) % [place] % (Auto) 8.5 (2-11) % Eos % (Auto) 2.9 (0-4) % Baso % (Auto) 0.5 (0-2) % Lymph # (Auto) 2.5 (1.2-4.9) X10*3/uL [place] # (Auto) 0.7 (0.1-1.2) X10*3/uL Eos # (Auto) 0.2 (0.0-0.4) X10*3/uL Baso # (Auto) 0.0 (0.0-0.2) X10*3/uL Abs Immat Gran (auto) 0.03 (0.00-0.03) X10*3/uL Absolute Neuts (auto) 4.8 (2.0-8.3) x10*3/uL Absolute Nucleated RBC 0.000 (0.0-0.012) X10*3/uL Nucleated RBC % (auto) 0.0 (0.0-0.2) /100WBC D-Dimer High Sensitivty < 150 NG/ML Sodium 139 (135-145) mmol/L Potassium 4.9 (3.3-5.1) mmol/L Chloride 105 (96-108) mmol/L Carbon Dioxide 26 (22-29) mmol/L Anion Gap 13 (12-20) BUN 14 (9-16) mg/dL Creatinine 0.97 (0.5-1.4) mg/dL Estim Creat Clear Calc 57.0 Estimated GFR 56 Random Glucose 119 H (60-115) mg/dL Calcium 10.3 H (8.4-10.2) mg/dL Magnesium 1.9 (1.6-2.6) mg/dL Total Bilirubin 0.6 (0.0-1.0) mg/dL Direct Bilirubin 0.2 (0.0-0.5) mg/dL AST 28 (5-31) U/L ALT 27 (0-31) U/L Alkaline Phosphatase 81 (39-117) U/L Troponin I High Sens (<3.5-17.0) ng/L Total Protein 7.7 (6.5-8.0) g/dL Albumin 4.9 (3.5-5.0) g/dL COVID-19 ([facility]AN) (Negative) COVID-19 Clin Com 01/03/22 01/03/22 Range/Units 11:55 11:56 WBC (4.8-10.8) X10*3/uL RBC (4.20-5.50) X10*6/uL Hgb (12.0-16.0) g/dl Hct (37.0-47.0) % MCV (80.0-98.0) fL MCH (27.0-33.0) pg MCHC (31.0-35.0) g/dl RDW (11.0-16.0) % Plt Count (160-400) X10*3/uL MPV (9.4-12.3) fL Immature Gran % (Auto) (0.0-0.4) % Neut % (Auto) (45-73) % Lymph % (Auto) (20-40) % [place] % (Auto) (2-11) % Eos % (Auto) (0-4) % Baso % (Auto) (0-2) % Lymph # (Auto) (1.2-4.9) X10*3/uL [place] # (Auto) (0.1-1.2) X10*3/uL Eos # (Auto) (0.0-0.4) X10*3/uL Baso # (Auto) (0.0-0.2) X10*3/uL Abs Immat Gran (auto) (0.00-0.03) X10*3/uL Absolute Neuts (auto) (2.0-8.3) x10*3/uL Absolute Nucleated RBC (0.0-0.012) X10*3/uL Nucleated RBC % (auto) (0.0-0.2) /100WBC D-Dimer High Sensitivty NG/ML Sodium (135-145) mmol/L Potassium (3.3-5.1) mmol/L Chloride (96-108) mmol/L Carbon Dioxide (22-29) mmol/L Anion Gap (12-20) BUN (9-16) mg/dL Creatinine (0.5-1.4) mg/dL Estim Creat Clear Calc Estimated GFR Random Glucose (60-115) mg/dL Calcium (8.4-10.2) mg/dL Magnesium (1.6-2.6) mg/dL Total Bilirubin (0.0-1.0) mg/dL Direct Bilirubin (0.0-0.5) mg/dL AST (5-31) U/L ALT (0-31) U/L Alkaline Phosphatase (39-117) U/L Troponin I High Sens 11.0 (<3.5-17.0) ng/L Total Protein (6.5-8.0) g/dL Albumin (3.5-5.0) g/dL COVID-19 ([facility]ARHAN) Negative (Negative) COVID-19 Clin Com See Note ECG Data ECG #1: Attestation: I personally reviewed and interpreted this ECG as follows: ECG interpretation date: 01/03/22 ECG interpretation time: 11:49 Interpretation: Rate: 55 Rhythm: sinus bradycardia Hartley: left , LVH Normal P waves. Normal PAUL. Normal QRS complex. ST T wave : nonspecific no FAITH qTC: normal prior studies: no sig change from 2020 The study has been interpreted contemporaneously by me. Discharge Plan Discharge Clinical Impression: Acute thoracic back pain Qualifiers: Back pain laterality: left Qualified Code(s): M54.6 - Pain in thoracic spine Patient Disposition: Still a Patient Prescriptions: No Action meclizine 25 mg tablet 25 mg PO TID PRN (Reason: dizziness) Qty: 30 0RF ondansetron 4 mg tablet,disintegrating 4 mg PO Q8H PRN (Reason: nausea and vomiting) Qty: 20 0RF cefuroxime axetil 500 mg tablet 500 mg PO BID 10 Days Qty: 20 0RF atorvastatin 20 mg tablet 1 tab PO DAILY nabumetone 750 mg tablet 1 tab PO BID PRN (Reason: pain) ibuprofen 800 mg tablet 1 tab PO TID atenolol 100 mg tablet 1 tab PO DAILY prazosin 1 mg capsule 1 cap PO TID methotrexate sodium 2.5 mg tablet 4 tab PO QWEEK amlodipine 10 mg tablet 1 tab PO DAILY folic acid 1 mg tablet 1 tab PO DAILY furosemide 20 mg tablet 1 tab PO DAILY ergocalciferol (vitamin D2) 1,250 mcg (50,000 unit) capsule 1 cap PO QWEEK lisinopril 40 mg tablet 1 tab PO DAILY cholecalciferol (vitamin D3) [Vitamin D3] 25 mcg (1,000 unit) capsule 1 cap PO DAILY tramadol 50 mg tablet 50 mg PO Q6H PRN (Reason: pain) Qty: 20 0RF pantoprazole 40 mg tablet,delayed release (DR/EC) 40 mg PO DAILY Qty: 90 3RF
[2022-01-03] MEDS: oxyCODONE HCl Immed Release 5 MG TABLET PO (12:04)
[2022-01-03] MEDS: Acetaminophen 325 MG TABLET 650 MG PO (12:04)
[2022-01-03] MEDS: Lidocaine 4 % Patch ADH..PATCH 1 PATCH TRANSDERMA (12:05)
[2022-01-03 12:12] LABS: MANUAL DIFF FLAG NO
[2022-01-03 12:22] LABS: Basophils Percent Auto 0.5 % (0-2); Eosinophils Absolute Auto 0.2 X10*3/uL (0.0-0.4); Eosinophils Percent Auto 2.9 % (0-4); Hematocrit 42.1 % (37.0-47.0); Hemoglobin 14.4 g/dl (12.0-16.0); Imm Gran Abs Auto 0.03 X10*3/uL (0.00-0.03); Imm Gran Pct Auto 0.4 % (0.0-0.4); Lymphocytes Absolute Auto 2.5 X10*3/uL (1.2-4.9); Lymphocytes Percent Auto 30.3 % (20-40); Mean Corpuscular HGB Conc 34.2 g/dl (31.0-35.0); Mean Corpuscular Volume 93.6 fL (80.0-98.0); Mean Platelet Volume 10.1 fL (9.4-12.3); Monocytes Absolute Auto 0.7 X10*3/uL (0.1-1.2); Monocytes Percent Auto 8.5 % (2-11); Neutrophils Absolute Auto 4.8 x10*3/uL (2.0-8.3); Neutrophils Percent Auto 57.4 % (45-73); Platelet Count 219 X10*3/uL (160-400); Red Cell Distribution Width 13.3 % (11.0-16.0); White Blood Count 8.4 X10*3/uL (4.8-10.8)
[2022-01-03 12:29] LABS: D Dimer High Sensitivity < 150 NG/ML
[2022-01-03 12:32] LABS: COVID-19 Test Negative (Negative)
[2022-01-03 12:53] LABS: Alanine Aminotransferase 27 U/L (0-31); Albumin Level 4.9 g/dL (3.5-5.0); Alkaline Phosphatase 81 U/L (39-117); Anion Gap 13 (12-20); Aspartate Amino Transferase 28 U/L (5-31); Bilirubin Direct 0.2 mg/dL (0.0-0.5); Bilirubin Total 0.6 mg/dL (0.0-1.0); Blood Urea Nitrogen 14 mg/dL (9-16); Calcium 10.3 mg/dL (8.4-10.2); Carbon Dioxide 26 mmol/L (22-29); Chloride 105 mmol/L (96-108); Estimated Glomerular Filt Rate 56; Glucose Random 119 mg/dL (60-115); Magnesium 1.9 mg/dL (1.6-2.6); Potassium 4.9 mmol/L (3.3-5.1); Sodium 139 mmol/L (135-145); Total Protein 7.7 g/dL (6.5-8.0)
[2022-01-03 14:28] VITALS: BP 116/66; PULSE 51; RESP 20; TEMP 36.7; O2SAT 96
[2022-01-03 15:53] VITALS: BP 117/71; PULSE 50; RESP 16
== END 2022-01-03 15:54 | disposition home or self-care (01) ==
PROVIDERS: Emergency Medicine; Emergency Provider Internal Medicine; PCP Internal Medicine
DX: M54.6 Pain in thoracic spine (principal); I10 Essential (primary) hypertension; E78.5 Hyperlipidemia, unspecified; Z79.02 Long term (current) use of antithrombotics/antiplatelets; Z79.899 Other long term (current) drug therapy; Z20.822 Contact with and (suspected) exposure to COVID-19
CPT/HCPCS: 36415; 71045; 80048; 80076; 83735; 84484; 85025; 85379; 87635; 93005; 99283; 99285

== ENCOUNTER → 2022-03-05 10:05 | Outpatient (BNVA) | payer MEDICARE, SELFPAY | PROVIDERS: PCP Internal Medicine; Visit Provider Nurse Practitioner | DX: K21.9 Gastro-esophageal reflux disease without esophagitis (principal); Z86.010 Personal history of colon polyps; Z79.899 Other long term (current) drug therapy | CPT/HCPCS: 99212 ==

== ENCOUNTER 2022-03-19 10:02 | Outpatient (REF) | payer MEDICARE, SELFPAY ==
--- NOTE | ~2022-03-19 | MM_ITS ---
EXAMINATION: MM SCREENING DIGITAL BREAST TOMOSYNTHESIS, BILATERAL CLINICAL INFORMATION: Screening. Asymptomatic. The lifetime risk of breast cancer based on the Tyrer-Cuzick Model is 3%. COMPARISON: Mammography: 03/14/2021, 12/06/2019, 08/07/2018 TECHNIQUE: Digital breast tomosynthesis is performed in both the craniocaudal and mediolateral oblique views along with computer-aided detection (CAD). Synthesized 2D images are generated from the tomosynthesis. FINDINGS: There are scattered areas of fibroglandular density (ACR BI-RADS breast composition Category b). There are no significant masses, abnormal calcifications, or other abnormalities. The axilla and skin contours are unremarkable. No significant changes. MM/MM tomosynthesis screening BI IMPRESSION: No mammographic evidence of malignancy. ASSESSMENT: BI-RADS 1: Negative RECOMMENDATION: Routine annual mammography screening. This patient's information was entered into a reminder system with a target due date for their next mammogram.
== END 2022-03-19 10:03 | disposition home or self-care (01) ==
LOC: HO.MAMMO 10:02
PROVIDERS: PCP Internal Medicine; Visit Provider Internal Medicine
DX: Z12.31 Encounter for screening mammogram for malignant neoplasm of breast (principal)
CPT/HCPCS: 77063; 77067

== ENCOUNTER → 2022-05-05 19:30 | Outpatient (REF) | payer MEDICARE, SELFPAY | LOC: HO.SL 19:30 | PROVIDERS: PCP Internal Medicine; Visit Provider Internal Medicine | DX: G47.33 Obstructive sleep apnea (adult) (pediatric) (principal) | CPT/HCPCS: 95810 ==

== ENCOUNTER 2022-05-19 14:28 | Emergency (ER) | payer MEDICARE, SELFPAY ==
--- NOTE | ~2022-05-19 | XR_ITS ---
EXAMINATION: CHEST 2 VIEWS CLINICAL INFORMATION: cough . COMPARISON: 01/03/2022. TECHNIQUE: PA and lateral views of the chest obtained. FINDINGS: The lungs are well expanded. Mild chronic appearing reticular markings again noted. No focal infiltrate, effusion, edema, or pneumothorax. Cardiac and mediastinal silhouettes are within normal limits for size with a tortuous aorta. No acute bony abnormality seen XR/XR chest 2V IMPRESSION: No evidence of acute disease
[2022-05-19 15:10] VITALS: BP 114/81; PULSE 87; RESP 18; TEMP 38.8; O2SAT 97; BMI 35.2
--- NOTE | 2022-05-19 15:11 | ED_ITS ---
HPI - URI/Sore Throat General Chief Complaint: Fever Stated Complaint: Fever/Sore throat Time Seen by Provider: 05/19/22 18:28 Source: patient Mode of arrival: ambulatory Limitations: language barrier ([place]-speaking) History of Present Illness HPI Narrative: 71-year-old female per who is [place]-speaking presenting to the ER with URI complaints over the past few days worse today which include fevers, chills, f atigue, malaise, headaches, nasal congestion/rhinorrhea, nonproductive cough with intermittent shortness of breath worse since last night and today. Denies recent travel or sick contacts she is aware of. Denies any chest pain/dyspnea on exertion/orthopnea, nausea/vomiting/diarrhea constipation, abdominal pain or lower extremity edema or calf tenderness or any other symptoms complaints or concerns at this time. MD elicited complaint: fever, cough, rhinorrhea and nasal congestion Onset (ago): day(s) (4-5 days or more) Consistency: constant and progressively worsening Severity: moderate Description of mucous: clear, watery and yellow Able to tolerate fluids by mouth: Yes Exacerbating factors: swallowing Relieving factors: nothing Associated symptoms: fever, chills, myalgias, headache, rhinorrhea, nasal congestion and cough Treatments prior to arrival: none Related Data Home Medications Medication Instructions Recorded Confirmed amlodipine 10 mg tablet 1 tab PO DAILY 02/14/21 02/14/21 atenolol 100 mg tablet 1 tab PO DAILY 02/14/21 02/14/21 atorvastatin 20 mg tablet 1 tab PO DAILY 02/14/21 02/14/21 cholecalciferol (vitamin D3) 25 1 cap PO DAILY 02/14/21 02/14/21 mcg (1,000 unit) capsule (Vitamin D3) folic acid 1 mg tablet 1 tab PO DAILY 02/14/21 02/14/21 lisinopril 40 mg tablet 1 tab PO DAILY 02/14/21 02/14/21 methotrexate sodium 2.5 mg tablet 4 tab PO QWEEK 02/14/21 02/14/21 nabumetone 750 mg tablet 1 tab PO BID PRN pain 02/14/21 02/14/21 prazosin 1 mg capsule 1 cap PO TID 02/14/21 02/14/21 Previous Rx's Medication Instructions Recorded pantoprazole 40 mg tablet,delayed 40 mg PO DAILY #90 tabs 03/05/22 release albuterol sulfate 90 mcg/actuation 1 inh inhalation QID PRN shortness 05/19/22 aerosol inhaler of breath or wheezing #8.5 grams azithromycin 250 mg tablet See Rx Instructions PO .COMPLEX #6 05/19/22 tabs codeine 10 mg-guaifenesin 100 mg/5 5 ml PO Q6H PRN cold symptoms #120 05/19/22 mL oral liquid (Guaifenesin AC) mL prednisone 20 mg tablet 40 mg PO DAILY inflammation 5 days 05/19/22 #10 tabs Allergies Allergy/AdvReac Type Severity Reaction Status Date / Time aspirin [ASA] AdvReac Intermediate STOMACH Verified 09/04/21 10:05 UPSET, gi upset Review of Systems Review of Systems: Constitutional : + fever/chills/fatigue/malaise, No Night S weats ENT/Mouth : No Hearing loss, No Ear Pain, + Nasal Congestion, No Sinus Pain, No Hoarseness, + sore throat, + Rhinorrhea, No Swallowing Difficulty Eyes: No Eye Pain, No Swelling, No Redness, No Foreign Body, No Discharge, No Vision Changes Cardiovascular : No Chest Pain, No SOB, No Dyspnea on Exertion, No Orthopnea, No Edema, No Palpitations Respiratory : + Cough, No Sputum, No Wheezing, No Smoke Exposure, No Dyspnea Gastrointestinal : No Nausea, No Vomiting, No Diarrhea, No Constipation, No abdominal Pain, No Hematochezia, No Melena Genitourinary : no irregular bleeding, No Dysuria, No Urinary Frequency, No Hematuria, No Urinary Incontinence, No Urgency, No Flank Pain, No Urinary Flow Changes, No Hesitancy Musculoskeletal : No joint pain, + Myalgias, No Joint Swelling Skin : No Skin Lesions, No rash Neuro : No Weakness, No Numbness, No Paresthesias, No Loss of Consciousness, No Dizziness, No Headache Psych : No Anxiety/Panic, No Depression, No SI/HI/AH/VH, No Social Issues, Heme/Lymph: No Bruising, No Bleeding,No Lymphadenopathy Endocrine : No Polyuria, No Polydipsia, No Temperature Intolerance Yes all other systems are reviewed and are negative PMFSH Past Medical History Attestation statement: The following information was validated with the patient. Source: old records reviewed and nursing notes reviewed Medical History Borderline diabetes COVID-19 vaccine series completed High cholesterol HTN (hypertension) Lumbar degenerative disc disease Psoriatic arthritis Surgical History H/O colonoscopy History of back surgery History of esophagogastroduodenoscopy (EGD) Family History Family History Mother Diabetes Father Diabetes Social History Social History Household Members: None Alcohol intake: never Patient Tobacco Use Status: Never used Tobacco Advance Directives: No Advance Directives Information Provided: Yes Physical Exam Vital Signs: Vital Signs: Last Vital Signs Temp 101.9 F H 05/19/22 15:10 Pulse 87 05/19/22 15:10 Resp 18 05/19/22 15:10 BP 114/81 05/19/22 15:10 Pulse Ox 97 05/19/22 15:10 O2 Del Method 05/19/22 15:10 BMI result Body Mass Index 35.2 Vital signs reviewed. Blood pressure normal. Pulse normal. Respiration normal. Oxygen normal. Temperature febrile at 101.9. Appearance: Alert. Oriented X3. No acute distress. Head: Normal external exam. Normocephalic. Atraumatic. Eyes: PERRLA. EOMI. Conjunctiva and sclera normal. Eyelids normal. ENT: EAC normal. TM's Normal. Pharynx normal. Uvula midline. Moist mucous membranes. No lesions/ulcerations or masses noted on the tongue. Normal voice. No trismus noted. No drooling noted. No muffled voice noted. Neck: Normal inspection. Neck supple. FROM. No adenopathy. Thyroid Normal. No meningeal signs. CVS: Normal heart rate and rhythm. Heart sound normal. Pulses normal throughout. No murmurs/rales/gallops. Respiratory: No respiratory distress. Painless inspiration. Breath sounds normal. No wheezes/rales/rhonchi noted. Chest nontender. No accessory muscle usage noted or decreased air movement noted. Abdomen: Soft and nontender. Back: Full range of motion noted. Nontender. Skin: Skin warm and dry. Normal skin color. Normal skin turgor. No rashes/lesions/lacerations noted. Extremities: No lower extremity edema or calf tenderness noted. Extremities exhibit normal range of motion and nontender. Neuro: Oriented X 3. No motor deficit. No sensory deficit. Reflexes normal. Normal steady gait. No focal neuro deficits noted. CN's II-XII intact bilaterally? Vascular: + radial pulses. Normal cap refill. No cyanosis noted to upper extremity nails Course Course Course Narrative: RME-15:15PM - 71-year-old female per who is [place]-speaking presenting to the ER with URI complaints over the past few days worse today which include fevers, chills, fatigue, malaise, headaches, nasal congestion/rhinorrhea, nonproductive cough with intermittent shortness of breath worse since last night and today. Denies recent travel or sick contacts she is aware of. Denies any chest pain/dyspnea on exertion/orthopnea, nausea/vomiting/diarrhea constipation, abdominal pain or lower extremity edema or calf tenderness or any other symptoms complaints or concerns at this time. Plan: Patient stable she can go back to the waiting room to be evaluated and [facility]. COVID/RSV/flu swab and chest x-ray ordered at this time. Reevaluation(s) Reevaluation #1: Chest x-ray negative. Patient positive for COVID. Patient negative for influenza and RSV. Patient is already 4-5 days out from when her symptoms started therefore she is not a candidate for any antivirals at this time. Will DC home with symptomatic treatment instructions return if any new or worsening symptoms and to follow up with her primary care provider. Patient understands agrees with this plan. Time: 18:48 Medications Administered Discontinued Medications Generic Name Dose Route Start Last Admin Trade Name Freq PRN Reason Stop Dose Admin Acetaminophen 975 mg 05/19/22 15:12 05/19/22 17:08 Acetaminophen 325 Mg Tablet PO 05/19/22 15:13 975 mg ONCE ONE Administration Medical Decision Making Lab Data MDM Lab Attestation statement: I reviewed the patient's lab results. Labs: Lab Results 05/19/22 Range/Units 17:10 Influenza Type A (PCR) NEGATIVE (Negative) Influenza Type B (PCR) NEGATIVE (Negative) RSV RNA Qual (PCR) NEGATIVE (Negative) SARS-CoV-2 RNA (RT-PCR) POSITIVE A (Negative) Independent Interpretation I performed an independent interpretation of an: Plain X-Ray Interpretation: CXR FINDINGS: The lungs are well expanded. Mild chronic appearing reticular markings again noted. No focal infiltrate, effusion, edema, or pneumothorax. Cardiac and mediastinal silhouettes are within normal limits for size with a tortuous aorta. No acute bony abnormality seen XR/XR chest 2V IMPRESSION: No evidence of acute disease Discharge Plan Discharge Clinical Impression: COVID-19 Patient Disposition: Home, Self-Care Instructions: COVID-19 (Coronavirus Disease 2019) (ED) Prescriptions: New azithromycin 250 mg tablet See Rx Instructions .ROUTE .COMPLEX Qty: 6 0RF Rx Instructions: For 250 mg dose pack: take 500 mg today (day 1), then 250 mg for 4 days (days 2-5) codeine-guaifenesin [Guaifenesin AC] 10-100 mg/5 mL liquid 5 ml PO Q6H PRN (Reason: cold symptoms) Qty: 120 0RF albuterol sulfate 90 mcg/actuation HFA aerosol inhaler 1 inh inhalation QID PRN (Reason: shortness of breath or wheezing) Qty: 8.5 0RF prednisone 20 mg tablet 40 mg PO DAILY 5 Days Qty: 10 0RF No Action atorvastatin 20 mg tablet 1 tab PO DAILY nabumetone 750 mg tablet 1 tab PO BID PRN (Reason: pain) atenolol 100 mg tablet 1 tab PO DAILY prazosin 1 mg capsule 1 cap PO TID methotrexate sodium 2.5 mg tablet 4 tab PO QWEEK amlodipine 10 mg tablet 1 tab PO DAILY folic acid 1 mg tablet 1 tab PO DAILY lisinopril 40 mg tablet 1 tab PO DAILY cholecalciferol (vitamin D3) [Vitamin D3] 25 mcg (1,000 unit) capsule 1 cap PO DAILY pantoprazole 40 mg tablet,delayed release (DR/EC) 40 mg PO DAILY Qty: 90 3RF Referrals: Letty Morrison MD [Primary Care Provider] - 5 days Stand Alone Forms: Work/School Release Interventions: ED Discharge Assessment Last Done: 05/19/22 18:32 Discharge Date/Time: 05/19/22 18:38 Print Language: [place]
[2022-05-19] MEDS: Acetaminophen 325 MG TABLET 975 MG PO (17:08)
[2022-05-19 17:59] LABS: Influenza A PCR NEGATIVE (Negative); Influenza B PCR NEGATIVE (Negative); Resp Syncy Virus RNA Qual PCR NEGATIVE (Negative); SARS COV2 PCR INHOUSE POSITIVE (Negative)
== END 2022-05-19 18:38 | disposition home or self-care (01) ==
LOC: HO.ED 18:36
PROVIDERS: Physician Assistant Medical; Emergency Provider Emergency Medicine; PCP Internal Medicine
DX: U07.1 COVID-19 (principal); R50.9 Fever, unspecified; M79.10 Myalgia, unspecified site; R51.9 Headache, unspecified; R05.9 Cough, unspecified; Z79.899 Other long term (current) drug therapy
CPT/HCPCS: 0241U; 71046; 99283

== ENCOUNTER 2022-07-24 13:14 | Outpatient (REF) | payer OTHER, SELFPAY ==
--- NOTE | ~2022-07-24 | XR_ITS ---
EXAMINATION: XR chest 2V CLINICAL INFORMATION: Reason for Exam SOB SINCE COVID,W/HX OF ARTHEROSCLEROSIS,? OPACITY MASS,PLEURAL EFF COMPARISON: Chest radiograph 05/19/2022 TECHNIQUE: 2 views of the chest XR/XR chest 2V FINDINGS/IMPRESSION: Clear lungs. No pneumothorax. No pleural effusion. Unchanged cardiomediastinal silhouette.
== END 2022-07-24 13:15 | disposition home or self-care (01) ==
LOC: HO.XRAY 13:14
PROVIDERS: PCP Internal Medicine; Visit Provider Emergency Medicine
DX: R06.02 Shortness of breath (principal)
CPT/HCPCS: 71046

== ENCOUNTER → 2022-09-03 10:18 | Outpatient (BNVA) | payer OTHER, SELFPAY | PROVIDERS: PCP Internal Medicine; Referring Provider Internal Medicine; Visit Provider Nurse Practitioner | DX: K21.9 Gastro-esophageal reflux disease without esophagitis (principal) | CPT/HCPCS: 99212 ==

== ENCOUNTER 2023-03-11 10:19 | Outpatient (AMB) | payer OTHER, SELFPAY ==
--- NOTE | 2023-03-11 10:21 | MHC.OFFVIS ---
Intake Vital Signs 03/11/23 10:23 Height 5 ft 6 in Weight 216 lb 14.958 oz BMI 35.0 Intake Visit Reasons: 6 month follow up Intake Note: Patient presents to in office visit today in 6 months follow up of GERD. CC: Patient reports doing well. Denies having GI symptoms. Toxicologist Required: No Toxicologist Name: Pt declined neon glass bender Accompanied by: Self / Same As Patient Allergies aspirin [ASA] Adverse Reaction (Intermediate, Verified 03/11/23 10:24) STOMACH UPSET, gi upset HPI 6 month follow up HPI Details Assessment & Plan (1) GERD (gastroesophageal reflux disease): Code(s): K21.9 - Gastro-esophageal reflux disease without esophagitis Plan: She continues to do well on her protonix 40 mg once a day. The only new medical thing was that she had COVID and she was put in prn albuterol and fluticasone nasal spray. She was only sick with GIRARD and fever for 1 day then better. ROV 6 mos. Medications: Refilled pantoprazole 40 mg PO DAILY 90 tabs 3RF D12.6 - Benign sheri plasm of colon, un specified, K21.9 - Gastro-esophageal reflux disease wi thout esophagitis TODAY'S VISIT She continues to do well on her pantoprazole once a day for her heartburn. She is having no trouble with her bowels. She has recovered well from COVID without any lasting symptoms. Now she has to get ready for [employer] and she has over 10 (I forget the exact number) grandchildren and just is many great grand children to try to shop for! Return office visit in 6 months [facility] Medical History Borderline diabetes COVID-19 vaccine series completed Lumbar degenerative disc disease Psoriatic arthritis High cholesterol HTN (hypertension) Surgical History History of esophagogastroduodenoscopy (EGD) H/O colonoscopy History of back surgery Family History Mother Diabetes Father Diabetes Social History Household Members: None Alcohol intake: never Patient Tobacco Use Status: Never used Tobacco Review of Systems Const Denies fatigue, Denies fever(s), Denies night sweats, Denies poor appetite and Denies weight loss Eyes Details: glasses Reports requires corrective lenses ENT Reports Normal hearing present, Denies dental pain, Denies dysphagia, Denies hearing loss, Denies mouth pain, Denies odynophagia, Denies throat swelling, Denies tongue swelling and Reports other (Dentition adequate) Card Reports no additional complaints Resp Reports no additional complaints GI Denies abdominal pain, Denies melena, Denies bloating, Denies hematochezia, Denies constipation, Denies GI cramping, Denies dysphagia, Denies excessive flatus, Denies early satiety, Reports heartburn, Denies diarrhea, Denies nausea, Denies odynophagia, Denies vomiting and Denies hematemesis Skin/Breast Denies pruritus, Denies lesions, Denies rash and Denies jaundice Neuro Reports Normal hearing present and Denies Abnormal speech present Endo Denies fatigue Aller/Immun Denies throat swelling and Denies tongue swelling Physical Exam Vital Signs: BMI result Body Mass Index 35.0 Const General: cooperative, no acute distress, well developed and well groomed Nutritional Appearance: well nourished and obese Orientation/consciousness: oriented to person, oriented to place and oriented to time Limitations: No language barrier HEENT Head: Yes normocephalic and Yes atraumatic Eyes General: appearance normal, both eyes and all related structures Pupils: Equal, round and reactive pupils present Neck Neck: Yes normal visual inspection and Yes no lymphadenopathy Thyroid: Thyroid normal Resp Effort & Inspection: normal respiratory effort and able to speak in complete sentences Auscultation: clear to auscultation bilaterally Cardio Rate: regular rate Rhythm: regular rhythm Heart sounds: Normal, physiologic split S2 sound present Peripheral pulses: radial pulses present and posterior tibial pulses present GI Inspection: No distended, No Abdominal panniculus present and Yes obesity Palpation (GI): Soft to palpation, nontender, no guarding, not rigid and No hepatosplenomegaly present Percussion: Yes normal to percussion Auscultation: normal bowel sounds Rectal Exam - Female: deferred Skin General skin exam: no rashes or lesions noted, turgor normal, skin not dry, no jaundice, No spider nevi and no striae Rashes: no rashes Nails: normal Neuro General: oriented to person, oriented to place and oriented to time Cranial nerves: Yes Equal, round and reactive pupils present and Yes Normal hearing present Speech: No Abnormal speech present Extrem General: Yes normal to inspection, No clubbing, No cyanosis and No edema Psych Appearance: grossly normal and well kempt Mental Status: mental status grossly normal Speech and movement: Normal speech and movement present Affect: normal affect Attitude: cooperative Thought process: Normal thought process present and not confabulating Thought content: Normal thought content present Insight: Fair insight present (Psych) Judgement: Fair judgement present (Psych) Assessment & Plan Assessment & Plan (1) GERD (gastroesophageal reflux disease): Code(s): K21.9 - Gastro-esophageal reflux disease without esophagitis Plan: She continues to do well on her pantoprazole once a day for her heartburn. She is having no trouble with her bowels. She has recovered well from COVID without any lasting symptoms. Now she has to get ready for [employer] and she has over 10 (I forget the exact number) grandchildren and just is many great grand children to try to shop for! Return office visit in 6 months Coding Level of Care Code Est Pt Level 3 (58768) Diagnoses GERD (gastroesophageal reflux disease) K21.9
[2023-03-11 10:23] VITALS: BMI 35.0
== END 2023-03-11 10:40 | disposition home or self-care (01) ==
PROVIDERS: Visit Provider Nurse Practitioner
DX: K21.9 Gastro-esophageal reflux disease without esophagitis (principal)
CPT/HCPCS: 99213

== ENCOUNTER → 2023-03-11 10:19 | Outpatient (BNVA) | payer OTHER, SELFPAY | PROVIDERS: Visit Provider Nurse Practitioner | DX: K21.9 Gastro-esophageal reflux disease without esophagitis (principal); Z79.899 Other long term (current) drug therapy | CPT/HCPCS: 99212 ==

== ENCOUNTER 2023-05-13 14:18 | Emergency (ER) | payer OTHER, SELFPAY ==
--- NOTE | ~2023-05-13 | XR_ITS ---
EXAMINATION: XR CHEST 2 VIEW CLINICAL INFORMATION: Chest pain, shortness of breath COMPARISON: 07/24/2022 TECHNIQUE: PA and lateral views of the chest obtained. FINDINGS: The lungs are clear. There are no pleural effusions. The cardiomediastinal silhouette is stable. XR/XR chest 2V IMPRESSION: No acute disease or significant interval change.
[2023-05-13 15:12] VITALS: BP 133/78; PULSE 66; RESP 18; TEMP 36.4; O2SAT 97; BMI 34.7
--- NOTE | 2023-05-13 15:12 | ED_ITS ---
HPI - SOB/Dyspnea General Chief Complaint: Dyspnea Stated Complaint: Difficulty breathing Time Seen by Provider: 05/13/23 22:09 History of Present Illness HPI Narrative: The patient is a 72-year-old woman who reports having chest pain and shortness of breath throughout the last week. She describes a pressure-like pain that has been bothering her a lot throughout the week and also a sense of shortness of breath. She has a history of asthma and also notes that she has run out of her albuterol inhaler. She has had no definite fever. Mild cough. No sputum. No vomiting. Related Data Home Medications Medication Instructions Recorded Confirmed amlodipine 10 mg tablet 1 tab PO DAILY 02/14/21 02/14/21 atenolol 100 mg tablet 1 tab PO DAILY 02/14/21 02/14/21 atorvastatin 20 mg tablet 1 tab PO DAILY 02/14/21 02/14/21 cholecalciferol (vitamin D3) 25 1 cap PO DAILY 02/14/21 02/14/21 mcg (1,000 unit) capsule (Vitamin D3) folic acid 1 mg tablet 1 tab PO DAILY 02/14/21 02/14/21 lisinopril 40 mg tablet 1 tab PO DAILY 02/14/21 02/14/21 methotrexate sodium 2.5 mg tablet 4 tab PO QWEEK 02/14/21 02/14/21 nabumetone 750 mg tablet 1 tab PO BID PRN pain 02/14/21 02/14/21 prazosin 1 mg capsule 1 cap PO TID 02/14/21 02/14/21 fluticasone propionate 50 1 spray intranasal 09/03/22 mcg/actuation nasal spray,suspension loratadine 10 mg tablet 10 mg PO QAM 09/03/22 Previous Rx's Medication Instructions Recorded albuterol sulfate 90 mcg/actuation 1 inh inhalation QID PRN shortness 05/19/22 aerosol inhaler of breath or wheezing #8.5 grams codeine 10 mg-guaifenesin 100 mg/5 5 ml PO Q6H PRN cold symptoms #120 05/19/22 mL oral liquid (Guaifenesin AC) mL pantoprazole 40 mg tablet,delayed 40 mg PO DAILY #90 tabs 09/03/22 release albuterol sulfate 90 mcg/actuation 2 puff inhalation Q4-6H PRN 12/12/23 aerosol inhaler shortness of breath or wheezing #8.5 grams Allergies Allergy/AdvReac Type Severity Reaction Status Date / Time aspirin [ASA] AdvReac Intermediate STOMACH Verified 05/13/23 15:12 UPSET, gi upset Review of Systems 2 Review of Systems: Yes all other systems are reviewed and are negative [facility] Past Medical History Medical History Borderline diabetes COVID-19 vaccine series completed Lumbar degenerative disc disease Psoriatic arthritis High cholesterol HTN (hypertension) Surgical History History of esophagogastroduodenoscopy (EGD) H/O colonoscopy History of back surgery Family History Family History Mother Diabetes Father Diabetes Social History Social History Household Members: None Alcohol intake: never Patient Tobacco Use Status: Never used Tobacco Smoked in Last 30 Days: No Use of substances other than those prescribed or required for medical reasons: No Advance Directives: No Advance Directives Information Provided: No Physical Exam 2 Vital Signs: Vital Signs: Last Vital Signs Temp 98.0 F 05/13/23 22:22 Pulse 64 05/13/23 22:40 Resp 16 05/13/23 22:40 BP 127/81 05/13/23 22:22 Pulse Ox 96 05/13/23 22:22 O2 Del Method Room Air 05/13/23 22:22 BMI result Body Mass Index 34.7 Const: Other: The patient is awake and alert, no acute distress. HEENT: Other: Face is symmetrical unremarkable Eyes: Other: Pupils are small, round, equal, extraocular movements intact Neck: Other: No JVD Resp: Other: Breath sounds are diminished bilaterally but without danny wheezes or crackles. Cardio: Other: The patient has a regular rate and rhythm with no murmur GI: Other: The abdomen is soft and nontender Skin: Other: Warm and dry Neuro: Other: Awake, alert, oriented, appropriate. Cranial nerves grossly intact. Moving all 4 extremities grossly normally. Grossly neurologically intact. Extrem: Other: Mild edema to both lower legs without pitting. Course Course Course Narrative: RME: 72-year-old female past medical history of COPD, GERD presenting to the ED complaining of SOB x today & intermittent CP x1 week. admits ran out of her inhaler. denies cough EKG, labs, CXR, viral testing ordered Full HPI, ROS and PE to be performed by primary ED provider. Medications Administered Discontinued Medications Generic Name Dose Route Start Last Admin Trade Name Fredeisy PRN Reason Stop Dose Admin Albuterol Sulfate 2.5 mg/ 0 mg 05/13/23 22:28 05/13/23 22:38 Albuterol/Ipratropium 3 ml INHALE 05/13/23 22:29 5 dose ONCE ONE Administration Medical Decision Making Medical Decision Making [facility] Narrative: Patient is a 72-year-old female who presents with 1 week of shortness of breath. She has apparently run out of her inhalers. EKG at 15:47 shows normal sinus rhythm at 65 beats per minute. No definite acute ischemic changes. Troponins are flat. ProBNP is normal. CRP is normal. My overall impression is that the patient is having worsening symptoms related to her asthma/COPD, possibly due to lack of bronchodilators. She does not look ill enough in my opinion to warrant steroids. I will prescribe a new albuterol inhaler. She should follow up with her regular doctor. Lab Data 05/13/23 15:31 05/13/23 15:31 Labs: Lab Results 05/13/23 05/13/23 Range/Units 15:31 23:00 WBC 8.9 (4.8-10.8) X10*3/uL RBC 4.52 (4.20-5.50) X10*6/uL Hgb 14.5 (12.0-16.0) g/dl Hct 43.0 (37.0-47.0) % MCV 95.1 (80.0-98.0) fL MCH 32.1 (27.0-33.0) pg MCHC 33.7 (31.0-35.0) g/dl RDW 13.2 (11.0-16.0) % Plt Count 227 (160-400) X10*3/uL MPV 10.4 (9.4-12.3) fL Immature Gran % (Auto) 0.1 (0.0-0.4) % Neut % (Auto) 50.9 (45-73) % Lymph % (Auto) 38.1 (20-40) % Borden % (Auto) 7.5 (2-11) % Eos % (Auto) 2.5 (0-4) % Baso % (Auto) 0.9 (0-2) % Lymph # (Auto) 3.4 (1.2-4.9) X10*3/uL Borden # (Auto) 0.7 (0.1-1.2) X10*3/uL Eos # (Auto) 0.2 (0.0-0.4) X10*3/uL Baso # (Auto) 0.1 (0.0-0.2) X10*3/uL Abs Immat Gran (auto) 0.01 (0.00-0.03) X10*3/uL Absolute Neuts (auto) 4.6 (2.0-8.3) x10*3/uL Absolute Nucleated RBC 0.000 (0.0-0.012) X10*3/uL Nucleated RBC % (auto) 0.0 (0.0-0.2) /100WBC Sodium 143 (135-145) mmol/L Potassium 4.7 (3.3-5.1) mmol/L Chloride 108 (96-108) mmol/L Carbon Dioxide 27 (22-29) mmol/L Anion Gap 13 (12-20) BUN 17 H (9-16) mg/dL Creatinine 0.85 (0.5-1.4) mg/dL Estim Creat Clear Calc 69.4 Estimated GFR > 60 Random Glucose 108 (60-115) mg/dL Calcium 10.4 H (8.4-10.2) mg/dL Total Bilirubin 0.3 (0.0-1.0) mg/dL Direct Bilirubin 0.1 (0.0-0.5) mg/dL AST 27 (5-31) U/L ALT 22 (0-31) U/L Alkaline Phosphatase 89 (39-117) U/L Troponin I High Sens 6.2 5.8 (<3.5-17.0) ng/L C-Reactive Protein 0.49 (< or = 0.50) mg/dL B-Natriuretic Peptide 16 (<100) pg/mL Total Protein 7.9 (6.5-8.0) g/dL Albumin 4.5 (3.5-5.0) g/dL Influenza Type A (PCR) NEGATIVE (Negative) Influenza Type B (PCR) NEGATIVE (Negative) RSV RNA Qual (PCR) NEGATIVE (Negative) SARS-CoV-2 RNA (RT-PCR) NEGATIVE (Negative) Discharge Plan Discharge Clinical Impression: Asthma with acute exacerbation Patient Disposition: Home, Self-Care Instructions: Asthma (ED) Additional Instructions: Your testing in the emergency room is very reassuring. There is no sign of heart attack or pneumonia. I have sent a prescription for a new albuterol inhaler to your pharmacy. Please use the inhaler every 4 hours as needed for cough or shortness of breath. Please follow-up soon with your regular doctor. Return to the emergency room if worse. Prescriptions: New albuterol sulfate 90 mcg/actuation HFA aerosol inhaler 2 puff inhalation Q4-6H PRN (Reason: shortness of breath or wheezing) Qty: 8.5 0RF No Action atorvastatin 20 mg tablet 1 tab PO DAILY nabumetone 750 mg tablet 1 tab PO BID PRN (Reason: pain) atenolol 100 mg tablet 1 tab PO DAILY prazosin 1 mg capsule 1 cap PO TID methotrexate sodium 2.5 mg tablet 4 tab PO QWEEK amlodipine 10 mg tablet 1 tab PO DAILY folic acid 1 mg tablet 1 tab PO DAILY lisinopril 40 mg tablet 1 tab PO DAILY cholecalciferol (vitamin D3) [Vitamin D3] 25 mcg (1,000 unit) capsule 1 cap PO DAILY codeine-guaifenesin [Guaifenesin AC] 10-100 mg/5 mL liquid 5 ml PO Q6H PRN (Reason: cold symptoms) Qty: 120 0RF albuterol sulfate 90 mcg/actuation HFA aerosol inhaler 1 inh inhalation QID PRN (Reason: shortness of breath or wheezing) Qty: 8.5 0RF fluticasone propionate 50 mcg/actuation spray,suspension 1 spray intranasal loratadine 10 mg tablet 10 mg PO QAM pantoprazole 40 mg tablet,delayed release (DR/EC) 40 mg PO DAILY Qty: 90 3RF Referrals: Letty Morrison MD [Primary Care Provider] - Interventions: ED Discharge Assessment Last Done: 05/14/23 00:40 Discharge Date/Time: 05/14/23 00:43
--- NOTE | 2023-05-13 15:14 | ECG_ITS ---
Test Reason : dizziness Blood Pressure : / mmHG Vent. Rate : 065 BPM Atrial Rate : 065 BPM P-R Int : 148 ms QRS Dur : 098 ms QT Int : 412 ms P-R-T Axes : 043 -17 032 degrees QTc Int : 428 ms Normal sinus rhythm with sinus arrhythmia Incomplete right bundle branch block Minimal voltage criteria for LVH, may be normal variant ( R in aVL ) Septal infarct , age undetermined Abnormal ECG When compared with ECG of 03-JAN-2022 11:25, Septal infarct is now Present Referred By: Marcie Jensen Electronically Signed By:Ganga De La Cruz
[2023-05-13 15:36] LABS: MANUAL DIFF FLAG NO
[2023-05-13 15:45] LABS: Basophils Absolute Auto 0.1 X10*3/uL (0.0-0.2); Basophils Percent Auto 0.9 % (0-2); Eosinophils Absolute Auto 0.2 X10*3/uL (0.0-0.4); Eosinophils Percent Auto 2.5 % (0-4); Hemoglobin 14.5 g/dl (12.0-16.0); Imm Gran Abs Auto 0.01 X10*3/uL (0.00-0.03); Imm Gran Pct Auto 0.1 % (0.0-0.4); Lymphocytes Absolute Auto 3.4 X10*3/uL (1.2-4.9); Lymphocytes Percent Auto 38.1 % (20-40); Mean Corpuscular HGB Conc 33.7 g/dl (31.0-35.0); Mean Corpuscular Hemoglobin 32.1 pg (27.0-33.0); Mean Corpuscular Volume 95.1 fL (80.0-98.0); Mean Platelet Volume 10.4 fL (9.4-12.3); Monocytes Absolute Auto 0.7 X10*3/uL (0.1-1.2); Monocytes Percent Auto 7.5 % (2-11); Neutrophils Absolute Auto 4.6 x10*3/uL (2.0-8.3); Neutrophils Percent Auto 50.9 % (45-73); Platelet Count 227 X10*3/uL (160-400); Red Blood Count 4.52 X10*6/uL (4.20-5.50); Red Cell Distribution Width 13.2 % (11.0-16.0); White Blood Count 8.9 X10*3/uL (4.8-10.8)
[2023-05-13 15:54] LABS: Alanine Aminotransferase 22 U/L (0-31); Albumin Level 4.5 g/dL (3.5-5.0); Alkaline Phosphatase 89 U/L (39-117); Anion Gap 13 (12-20); Aspartate Amino Transferase 27 U/L (5-31); Bilirubin Direct 0.1 mg/dL (0.0-0.5); Bilirubin Total 0.3 mg/dL (0.0-1.0); Blood Urea Nitrogen 17 mg/dL (9-16); Calcium 10.4 mg/dL (8.4-10.2); Carbon Dioxide 27 mmol/L (22-29); Chloride 108 mmol/L (96-108); Creatinine Clr Calc Pharmacy 69.4; Estimated Glomerular Filt Rate > 60; Glucose Random 108 mg/dL (60-115); Potassium 4.7 mmol/L (3.3-5.1); Sodium 143 mmol/L (135-145); Total Protein 7.9 g/dL (6.5-8.0)
[2023-05-13 16:10] LABS: Troponin-I High Sensitivity 6.2 ng/L (<3.5-17.0)
[2023-05-13 16:15] LABS: Influenza A PCR NEGATIVE (Negative); Influenza B PCR NEGATIVE (Negative); Resp Syncy Virus RNA Qual PCR NEGATIVE (Negative); SARS COV2 PCR INHOUSE NEGATIVE (Negative)
[2023-05-13 22:22] VITALS: BP 127/81; PULSE 64; RESP 16; TEMP 36.7; O2SAT 96
[2023-05-13] MEDS: Albuterol Sulfate 2.5 MG, Albuterol/Iprat 2.5/0.5MG 3 ML 3 ML INHALE (22:38)
[2023-05-13 22:40] VITALS: PULSE 64; RESP 16; O2SAT 97
[2023-05-13 22:42] LABS: C Reactive Protein 0.49 mg/dL (< or = 0.50)
[2023-05-13 23:28] LABS: B Type Natriuretic Peptide 16 pg/mL (<100)
[2023-05-13 23:33] LABS: Troponin-I High Sensitivity 5.8 ng/L (<3.5-17.0)
== END 2023-05-14 00:43 | disposition home or self-care (01) ==
PROVIDERS: Physician Assistant; Emergency Provider Emergency Medicine; PCP Internal Medicine
DX: J45.901 Unspecified asthma with (acute) exacerbation (principal); R06.02 Shortness of breath; R07.89 Other chest pain; I49.8 Other specified cardiac arrhythmias; Z20.822 Contact with and (suspected) exposure to COVID-19; Z20.828 Contact with and (suspected) exposure to other viral communicable diseases; Z79.899 Other long term (current) drug therapy
CPT/HCPCS: 0241U; 36415; 71046; 80048; 80076; 83880; 84484; 85025; 86140; 93005; 94640; 99284; 99285

== ENCOUNTER → 2023-05-13 15:14 | Outpatient (BNV) | payer OTHER, SELFPAY | PROVIDERS: Emergency Provider Emergency Medicine; PCP Internal Medicine; Visit Provider Internal Medicine Cardiovascular Disease | DX: R94.31 Abnormal electrocardiogram [ECG] [EKG] (principal) | CPT/HCPCS: 93010 ==

== ENCOUNTER 2023-09-30 11:52 | Outpatient (AMB) | payer OTHER, SELFPAY ==
--- NOTE | 2023-09-30 12:04 | A.OFFVIS_ITS ---
Vital Signs 09/30/23 12:05 Height 5 ft 6 in Weight 215 lb BMI 34.7 BP 115/60 Blood Pressure Location Lt brachial Position Sitting Pulse 79 Intake Visit Reasons: 6 months follow up Intake Note: Patient 6 month follow up Patient denies any GI issues. 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 She is having no trouble with her bowels. She has recovered well from COVID without any lasting symptoms. Now she has to get ready for [employer] and she has over 10 (I forget the exact number) grandchildren and just is many great grand children to try to shop for! Return office visit in 6 months TODAY'S VISIT Her GERD continues to be well controlled on her pantoprazole. She has no new health conditions to report and she has not due for colonoscopy until 2026. Return office visit in 6 months [facility] Medical History Borderline diabetes COVID-19 vaccine series completed Lumbar degenerative disc disease Psoriatic arthritis High cholesterol HTN (hypertension) Surgical History History of esophagogastroduodenoscopy (EGD) H/O colonoscopy History of back surgery Family History Mother Diabetes Father Diabetes Social History Household Members: None Alcohol intake: never Patient Tobacco Use Status: Never used Tobacco Review of Systems Const Denies fatigue, Denies fever(s), Denies night sweats, Denies poor appetite and Denies weight loss Eyes Details: glasses Reports requires corrective lenses ENT Reports Normal hearing present, Denies dental pain, Denies dysphagia, Denies hearing loss, Denies mouth pain, Denies odynophagia, Denies throat swelling, Denies tongue swelling and Reports other (Dentition adequate) Card Reports no additional complaints Resp Reports no additional complaints GI Details: Denies abdominal pain, Denies melena, Denies bloating, Denies hematochezia, Denies constipation, Denies GI cramping, Denies dysphagia, Denies excessive flatus, Denies early satiety, Reports heartburn, Denies diarrhea, Denies nausea, Denies odynophagia, Denies vomiting and Denies hematemesis Skin/Breast Denies pruritus, Denies lesions, Denies rash and Denies jaundice Neuro Reports Normal hearing present and Denies Abnormal speech present Endo Denies fatigue Aller/Immun Denies throat swelling and Denies tongue swelling Physical Exam Vital Signs: Last Vital Signs Pulse 79 09/30/23 12:05 BP 115/60 09/30/23 12:05 BMI result Body Mass Index 34.7 Const General: cooperative, no acute distress, well developed and well groomed Nutritional Appearance: well nourished and obese Orientation/consciousness: oriented to person, oriented to place and oriented to time Limitations: No language barrier HEENT Head: Yes normocephalic and Yes atraumatic Eyes General: appearance normal, both eyes and all related structures Pupils: Equal, round and reactive pupils present Neck Neck: Yes normal visual inspection and Yes no lymphadenopathy Thyroid: Thyroid normal Resp Effort & Inspection: normal respiratory effort and able to speak in complete sentences Auscultation: clear to auscultation bilaterally Cardio Rate: regular rate Rhythm: regular rhythm Heart sounds: Normal, physiologic split S2 sound present Peripheral pulses: radial pulses present and posterior tibial pulses present GI Inspection: No distended, Yes Abdominal panniculus present and Yes obesity Palpation (GI): Soft to palpation, nontender, no guarding, not rigid and No hepatosplenomegaly present Percussion: Yes normal to percussion Auscultation: normal bowel sounds Rectal Exam - Female: deferred Skin General skin exam: no rashes or lesions noted, turgor normal, skin not dry, no jaundice, No spider nevi and no striae Rashes: no rashes Nails: normal Neuro General: oriented to person, oriented to place and oriented to time Cranial nerves: Yes Equal, round and reactive pupils present and Yes Normal hearing present Speech: No Abnormal speech present Extrem General: Yes normal to inspection, No clubbing, No cyanosis and No edema Psych Appearance: grossly normal and well kempt Mental Status: mental status grossly normal Speech and movement: Normal speech and movement present Affect: normal affect Attitude: cooperative Thought process: Normal thought process present and not confabulating Thought content: Normal thought content present Insight: Fair insight present (Psych) Judgement: Fair judgement present (Psych) Assessment & Plan Assessment & Plan (1) GERD (gastroesophageal reflux disease): Code(s): K21.9 - Gastro-esophageal reflux disease without esophagitis Category: Medical Plan Her GERD continues to be well controlled on her pantoprazole. She has no new health conditions to report and she has not due for colonoscopy until 2026. Return office visit in 6 months Medications: Refilled pantoprazole 40 mg PO DAILY 90 tabs 3RF D12.6 - Benign neoplasm of colon, unspecified, K21.9 - Gastro-esophageal reflux disease without esophagitis Coding Level of Care Code Est Pt Level 3 (33668) Diagnoses GERD (gastroesophageal reflux disease) K21.9
[2023-09-30 12:05] VITALS: BP 115/60; PULSE 79; BMI 34.7
== END 2023-09-30 12:21 | disposition home or self-care (01) ==
PROVIDERS: PCP Internal Medicine; Visit Provider Nurse Practitioner
DX: K21.9 Gastro-esophageal reflux disease without esophagitis (principal)
CPT/HCPCS: 99213

== ENCOUNTER → 2023-09-30 11:52 | Outpatient (BNVA) | payer OTHER, SELFPAY | PROVIDERS: PCP Internal Medicine; Visit Provider Nurse Practitioner | DX: K21.9 Gastro-esophageal reflux disease without esophagitis (principal) | CPT/HCPCS: 99212 ==

== ENCOUNTER 2023-12-18 13:30 | Outpatient (AMB) | payer OTHER, SELFPAY ==
--- NOTE | 2023-12-18 13:35 | MHC.OFFVIS ---
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 Has been experiencing swelling for about 1 year. She is currently on furosemide 20 mg for the water and swelling Has discoloration on both legs around the shins and ankles. 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 Complaints include pain over varicosities, swelling of lower extremities, cramping, fatigue, and heaviness of the lower extremities. It has been affecting there daily activities including walking. It is noted more so in right leg. Of note she has had a trial of 20 mg of Lasix with minimal improvement. In addition she is a nonsmoker nondiabetic. Patient denies any previous venous surgery or injections. Patient denies any history of DVT/ PE. Patient denies any history of phlebitis. Trial of compression includes - [id number] They now present for vascular evaluation regarding their varicose veins. [facility] Medical History Borderline diabetes COVID-19 vaccine series completed Lumbar degenerative disc disease Psoriatic arthritis High cholesterol HTN (hypertension) Surgical History History of esophagogastroduodenoscopy (EGD) H/O colonoscopy History of back surgery Family History Mother Diabetes Father Diabetes Social History Household Members: None Alcohol intake: never Patient Tobacco Use Status: Never used Tobacco Review of Systems Const Reports as per HPI ENT Reports no additional complaints Card Denies chest pain, Denies chest pain at rest and Denies chest pain with activity Resp Denies chest congestion and Denies cough GI Reports no additional complaints Musc Details: pain over varicosities, aching of lower extremities, swelling, cramping, heaviness and tiredness, itching Denies abnormal gait Skin/Breast Reports pruritus and Denies wounds Neuro Reports no additional complaints and Denies abnormal gait Psych Denies no additional complaints Physical Exam Const General: cooperative, healthy appearing and comfortable Orientation/consciousness: oriented to person, oriented to place and oriented to time Neck Carotids: no bruits Chest Chest palpation & inspection: normal inspection of the chest and normal palpation of entire chest wall Resp Effort & Inspection: normal respiratory effort and able to speak in complete sentences Cardio Rate: regular rate Heart sounds: S1 normal heart sound present and S2 normal heart sound present Peripheral pulses: Peripheral pulses 2+ throughout GI Inspection: Yes normal to inspection Skin Other: +2 edema, discoloration bilateral medial calf CEAP Classification C4 - skin color changes Ep - Etiology Primary As - superficial veins P - reflux General skin exam: dry skin Neuro General: oriented to person, oriented to place and oriented to time Extrem Right lower extremity: full ROM, normal capillary refill and edema Left lower extremity: full ROM, normal capillary refill and edema Psych Mental Status: mental status grossly normal Assessment & Plan Assessment & Plan (1) Varicose veins of right lower extremity with inflammation: Code(s): I83.11 - Varicose veins of right lower extremity with inflammation Category: Medical Plan: In short, the patient has evidence of venous insufficiency. I have discussed the pathophysiology with the patient. In addition I have provided informational material regarding venous disease to the patient. We have discussed conservative measures including compression, elevation, and exercise. I have also provided a handout regarding appropriate use of compression stockings and where to purchase good compression stockings as well. I have taken the liberty of ordering venous insufficiency testing with the patient. They will follow up with me after testing. The patient had an opportunity to ask questions regarding the treatment plan. All questions were answered. Imaging studies, laboratory studies and physical exam results were discussed and reviewed in detail. No major barriers to understanding were identified. The patient expressed understanding and agreement with the above treatment plan. The patient is aware they should contact our office by phone for worsening of the current condition or the appearance of new symptoms. Thank you for allowing me to participate in the vascular care of this patient. If you have any questions or concerns regarding the treatment for the above condition please do not hesitate to contact me. The office telephone contact is [phone]. This note is constructed using voice recognition software. While every effort has been made to ensure accuracy, research center partner errors may have been included. Thank you for allowing me to participate in the care of your patient. Yours sincerely, Cash Brady MD, FACS, R.P.V.I. Orders: Orders US venous duplex LE BI 1 Week I83.11 - Varicose veins of right lower extremity with inflammation Coding Level of Care Code New Pt Level 4 (59883) Diagnoses Varicose veins of right lower extremity with inflammation I83.11
== END 2023-12-18 13:53 | disposition home or self-care (01) ==
PROVIDERS: PCP Internal Medicine; Visit Provider Surgery Vascular Surgery
DX: I83.11 Varicose veins of right lower extremity with inflammation (principal)
CPT/HCPCS: 99204

== ENCOUNTER → 2023-12-18 13:30 | Outpatient (BNVA) | payer OTHER, SELFPAY | PROVIDERS: PCP Internal Medicine; Visit Provider Surgery Vascular Surgery | DX: I83.11 Varicose veins of right lower extremity with inflammation (principal) | CPT/HCPCS: 99202 ==

== ENCOUNTER 2023-12-30 09:58 | Outpatient (REF) | payer OTHER, SELFPAY ==
[2023-12-30 11:27] LABS: MANUAL DIFF FLAG NO
[2023-12-30 11:54] LABS: Basophils Absolute Auto 0.1 X10*3/uL (0.0-0.2); Basophils Percent Auto 0.8 % (0-2); Eosinophils Absolute Auto 0.3 X10*3/uL (0.0-0.4); Eosinophils Percent Auto 3.6 % (0-4); Hematocrit 41.1 % (37.0-47.0); Imm Gran Abs Auto 0.03 X10*3/uL (0.00-0.03); Imm Gran Pct Auto 0.4 % (0.0-0.4); Lymphocytes Absolute Auto 2.7 X10*3/uL (1.2-4.9); Lymphocytes Percent Auto 38.4 % (20-40); Mean Corpuscular HGB Conc 34.1 g/dl (31.0-35.0); Mean Corpuscular Hemoglobin 32.9 pg (27.0-33.0); Mean Corpuscular Volume 96.5 fL (80.0-98.0); Monocytes Absolute Auto 0.5 X10*3/uL (0.1-1.2); Monocytes Percent Auto 6.3 % (2-11); Neutrophils Absolute Auto 3.6 x10*3/uL (2.0-8.3); Neutrophils Percent Auto 50.5 % (45-73); Platelet Count 202 X10*3/uL (160-400); Red Blood Count 4.26 X10*6/uL (4.20-5.50); Red Cell Distribution Width 13.4 % (11.0-16.0); White Blood Count 7.1 X10*3/uL (4.8-10.8)
[2023-12-30 11:56] LABS: Estimated Average Glucose 137 mg/dL; Hemoglobin A1c % 6.4 % (<6.0)
[2023-12-30 12:06] LABS: Cholesterol 151 mg/dL (<200); HDL Cholesterol 37 mg/dL (>40); LDL Cholesterol Calculated 72 mg/dL (<100); Triglycerides 210 mg/dL (<150)
[2023-12-30 12:15] LABS: TSH reflex Free T4 0.48 uIU/mL (0.32-4.0); Vitamin D 25-OH Total 49.6 ng/mL (>30)
[2023-12-30 12:37] LABS: Reflex LDLD? No
== END 2023-12-30 09:59 | disposition home or self-care (01) ==
LOC: HO.HHCL 09:58
PROVIDERS: Visit Provider Internal Medicine
DX: I10 Essential (primary) hypertension (principal); Z13.1 Encounter for screening for diabetes mellitus
CPT/HCPCS: 36415; 80061; 82306; 83036; 84443; 85025

== ENCOUNTER 2023-12-31 10:19 | Outpatient (REF) | payer OTHER, SELFPAY ==
--- NOTE | ~2023-12-31 | US_ITS ---
EXAMINATION: US LOWER EXTREMITY VENOUS (REFLUX EXAM), BILATERAL CLINICAL INDICATION: Chronic venous insufficiency with lower extremity varicose veins with inflammation COMPARISON: None. TECHNIQUE: Color flow triplex imaging and compression Doppler was performed to evaluate both the deep and the superficial systems bilaterally. To evaluate the superficial system, the examination was performed in the upright position. Color-flow Doppler ultrasound and compression ultrasound were utilized. In addition, maneuvers were utilized to demonstrate reflux. FINDINGS: 1. DEEP VENOUS ULTRASOUND OF THE RIGHT LOWER EXTREMITY: Common Femoral Vein: Compressible, normal respiratory variation and augmented flow. Femoral Vein: Compressible, normal color flow and augmentation. Popliteal Vein: Compressible, normal augmentation. Deep Reflux: There is no evidence of reflux in the deep system in either the common femoral vein, superficial femoral or the popliteal vein. There is no evidence of a Camarillo's cyst. 2. SUPERFICIAL ULTRASOUND WITH DOPPLER OF RIGHT LOWER EXTREMITY: GREAT SAPHENOUS VEIN: Saphenofemoral Junction: 0.6 cm; Reflux: 0 ms Proximal Thigh: 0.4 cm; Reflux: 0 ms Mid Thigh: 0.3 cm; Reflux: 0 ms Above Knee: 0.3 cm; Reflux: 0 ms At Knee: 0.3 cm; Reflux: 0 ms Below Knee: 0.3 cm; Reflux: 0 ms Mid Calf: 0.2 cm; Reflux: 0 ms Ankle: 0.3 cm; Reflux: 0 ms DUPLICATED MEDIAL GREAT SAPHENOUS VEIN: Diameter: None imaged Reflux: NA DUPLICATED LATERAL GREAT SAPHENOUS VEIN: Diameter: None imaged Reflux: NA SMALL SAPHENOUS VEIN: Saphenopopliteal Junction: 0.3 cm; Reflux: 0 ms Proximal: 0.2 cm; Reflux: 0 ms Distal: 0.2 cm; Reflux: 1400 ms VEIN OF GIACOMINI: Size: NA Reflux: NA PERFORATORS: Location: None significant Size: NA Reflux: NA VARICOSITIES: Location: None significant Size: NA Reflux: NA 3. DEEP VENOUS ULTRASOUND OF THE LEFT LOWER EXTREMITY: Common Femoral Vein: Compressible, normal respiratory variation and augmented flow. Femoral Vein: Compressible, normal color flow and augmentation. Popliteal Vein: Compressible, normal augmentation. Deep Reflux: There is no evidence of reflux in the deep system in either the common femoral vein, superficial femoral or the popliteal vein. There is no evidence of a [place]ar[place]'s cyst. 4. SUPERFICIAL ULTRASOUND WITH DOPPLER OF LEFT LOWER EXTREMITY: GREAT SAPHENOUS VEIN: Saphenofemoral Junction: 1.2 cm; Reflux: 0 ms Proximal Thigh: 0.6 cm; Reflux: 0 ms Mid Thigh: 0.2 cm; Reflux: 0 ms Above Knee: 0.3 cm; Reflux: 0 ms At Knee: 0.3 cm; Reflux: 968 ms Below Knee: 0.2 cm; Reflux: 0 ms Mid Calf: 0.2 cm; Reflux: 0 ms Ankle: 0.3 cm; Reflux: 0 ms DUPLICATED MEDIAL GREAT SAPHENOUS VEIN: Diameter: None imaged Reflux: NA DUPLICATED LATERAL GREAT SAPHENOUS VEIN: Diameter: None imaged Reflux: NA SMALL SAPHENOUS VEIN: Saphenopopliteal Junction: 0.4 cm; Reflux: 0 ms Proximal: 0.2 cm; Reflux: 0 ms Distal: 0.3 cm; Reflux: 0 ms VEIN OF GIACOMINI: Size: NA Reflux: NA PERFORATORS: Location: None significant Size: NA Reflux: NA VARICOSITIES: Location: Proximal thigh off the great saphenous vein Size: 0.3 to 0.4 cm Reflux: None US/US venous duplex LE BI IMPRESSION: Right: No significant reflux in the great saphenous vein. There is focal area of reflux in the distal small saphenous vein. No significant varicose veins. Left: Focal area of segmental reflux in the left great saphenous vein at the knee. No significant reflux in the small saphenous vein. Varicose veins in the proximal thigh without significant reflux as described above
== END 2023-12-31 10:20 | disposition home or self-care (01) ==
LOC: HO.US 10:19
PROVIDERS: PCP Internal Medicine; Visit Provider Surgery Vascular Surgery
DX: I83.11 Varicose veins of right lower extremity with inflammation (principal)
CPT/HCPCS: 93970

== ENCOUNTER 2024-01-09 09:28 | Emergency (ER) | payer OTHER, SELFPAY ==
--- NOTE | ~2024-01-09 | CT_ITS ---
EXAMINATION: CT HEAD WITHOUT CONTRAST CLINICAL INFORMATION: Dizziness. COMPARISON: CT head 02/14/2021. TECHNIQUE: Contiguous axial imaging was performed from the skull base to vertex without intravenous administration of contrast. This CT examination was performed using dose optimization techniques as appropriate, variously including the following: *Automated exposure control *Adjustment of mA and/or kV according to patient size (this includes techniques or standardized protocols for targeted exams where dose is matched to indication/reason for exam; i.e. extremities or head) *Use of iterative reconstruction technique DLP: 730 mGy-cm FINDINGS: There is no evidence of acute intracranial hemorrhage or edematous territorial infarction. A few foci of hypoattenuation in the periventricular and deep white matter are consistent with mild microangiopathy. Mcginnis-white matter differentiation is preserved. Proportional prominence of the ventricles and sulcal spaces. No evidence for obstructive hydrocephalus. No abnormal mass effect or midline shift. No extra-axial fluid collections. Right greater than left tonsillar descent, stable compared to 02/14/2021. No acute soft tissue or osseous abnormalities. Complete mixed density opacification of the left maxillary sinus with widening of the ostium and extension of the opacification into the left nasal passage. Additional complete opacification of the left sphenoidal sinus. There is mild associated osseous remodeling with thinning and sclerosis of the babin of the left maxillary sinus and left sphenoidal sinus. CT/CT head/brain wo IV con IMPRESSION: 1. No evidence of acute intracranial hemorrhage or edematous territorial infarction. 2. Mild chronic microangiopathy and generalized cerebral volume loss. 3. Extensive paranasal sinus disease, recommend ENT referral for additional evaluation.
--- NOTE | ~2024-01-09 | XR_ITS ---
EXAMINATION: XR CHEST CLINICAL INFORMATION: Dizziness. COMPARISON: Chest radiograph 05/13/2023. TECHNIQUE: 2 views of the chest were obtained. FINDINGS: Stable prominence of the cardiomediastinal silhouette. Similar degree of central bronchovascular engorgement. No focal consolidation, pleural effusion or pneumothorax. Thoracic spondylosis. No acute osseous findings. XR/XR chest 2V IMPRESSION: 1. No acute cardiopulmonary findings. 2. Stable prominence of the cardiomediastinal silhouette and central bronchovascular markings.
--- NOTE | 2024-01-09 09:34 | ED_ITS ---
HPI - Abdominal Pain General Chief Complaint: Dizziness Stated Complaint: ABD PAIN NAUSEA Time Seen by Provider: 01/09/24 09:33 Source: patient and EMS Mode of arrival: EMS Limitations: no limitations History of Present Illness HPI narrative: 73-year-old female past medical history significant for hypertension hyperlipidemia on methotrexate asthma chronic back pain who presents emergency department complaining of dizziness was associated nausea. States she woke up with the yesterday she states she has been able to eat all day she was in bed all day yesterday she denies any falls or injuries denies headache she denies fevers chills cough or shortness a breath she denies any vomiting she has not lost consciousness. MD elicited complaint: abdominal pain Related Data Home Medications ?Medication ?Instructions ?Recorded ?Confirmed amlodipine 10 mg tablet 1 tab PO DAILY 02/14/21 02/14/21 atenolol 100 mg tablet 1 tab PO DAILY 02/14/21 02/14/21 atorvastatin 20 mg tablet 1 tab PO DAILY 02/14/21 02/14/21 cholecalciferol (vitamin D3) 25 1 cap PO DAILY 02/14/21 02/14/21 mcg (1,000 unit) capsule (Vitamin D3) folic acid 1 mg tablet 1 tab PO DAILY 02/14/21 02/14/21 lisinopril 40 mg tablet 1 tab PO DAILY 02/14/21 02/14/21 methotrexate sodium 2.5 mg tablet 4 tab PO QWEEK 02/14/21 02/14/21 nabumetone 750 mg tablet 1 tab PO BID PRN pain 02/14/21 02/14/21 prazosin 1 mg capsule 1 cap PO TID 02/14/21 02/14/21 fluticasone propionate 50 1 spray intranasal 09/03/22 mcg/actuation nasal spray,suspension loratadine 10 mg tablet 10 mg PO QAM 09/03/22 furosemide 20 mg tablet 20 mg PO DAILY 12/18/23 Previous Rx's ?Medication ?Instructions ?Recorded albuterol sulfate 90 mcg/actuation 1 inh inhalation QID PRN shortness 05/19/22 aerosol inhaler of breath or wheezing #8.5 grams codeine 10 mg-guaifenesin 100 mg/5 5 ml PO Q6H PRN cold symptoms #120 05/19/22 mL oral liquid (Guaifenesin AC) mL albuterol sulfate 90 mcg/actuation 2 puff inhalation Q4-6H PRN 05/13/23 aerosol inhaler shortness of breath or wheezing #8.5 grams pantoprazole 40 mg tablet,delayed 40 mg PO DAILY #90 tabs 09/30/23 release meclizine 12.5 mg tablet 12.5 mg PO TID PRN dizziness #60 01/09/24 tabs ondansetron 4 mg disintegrating 4 mg PO Q6H #14 tabs 01/09/24 tablet Allergies Allergy/AdvReac Type Severity Reaction Status Date / Time aspirin [ASA] AdvReac Intermediate STOMACH Verified 01/09/24 09:35 UPSET, gi upset Review of Systems Review of Systems Review of systems: General: Dizziness Patient denies any fever chills recent illness or falls Musculoskeletal: Denies back pain or body aches or other injuries HEENT: denies headache, runny nose, ear pain Respiratory: denies shortness of breath, cough Cardiovascular: no chest pain or palpitations : denies dysuria, frequency Abdomen: no nausea vomiting denies abdominal pain Extremities: no swelling, no pain Skin: no diaphoresis Yes all other systems are reviewed and are negative [facility] Past Medical History Medical History Borderline diabetes COVID-19 vaccine series completed Lumbar degenerative disc disease Psoriatic arthritis High cholesterol HTN (hypertension) Surgical History History of esophagogastroduodenoscopy (EGD) H/O colonoscopy History of back surgery Family History Family History Mother Diabetes Father Diabetes Social History Social History Household Members: None Alcohol intake: never Patient Tobacco Use Status: Never used Tobacco Smoked in Last 30 Days: No Use of substances other than those prescribed or required for medical reasons: No Advance Directives: Yes Advance Directives Information Provided: Yes Advance Directives on File: No Physical Exam ED Vital Signs: Vital Signs - 24 hr 01/09/24 09:35 Temperature 98 F Pulse Rate 66 Respiratory Rate 18 Blood Pressure 136/81 Pulse Oximetry 94 BMI result Body Mass Index 36.4 Neurological exam: CN II- XII tested. Patient is alert and oriented to person place and time. Patient has no dysphagia or dysarthia, denies good vision in all four vision fajardo no nystagmus on exam, good strength to upper and lower extremities with normal reflexes to brachioradialis, wrist, patella and achilles. Negative romberg, good finger to nose and heel to [place]. General: Well-appearing well-nourished in no signs of distress HEENT: Normocephalic atraumatic Neck: No signs of JVD, no masses no tenderness or lymphadenopathy Cardiovascular: Regular rate and rhythm Respiratory: Clear to auscultation bilaterally Abdomen: Soft nontender no masses Extremities: Normal pedal pulses no signs of edema Skin: Dry warm no rashes Back: No tenderness full ROM NIH Stroke Scale Internal: Initial- Upon Arrival Level of Consciousness: Alert Level of Consciousness Questions: Answers both questions correctly Level of Consciousness Commands: Performs both tasks correctly Best Gaze: Normal Visual: No visual loss Facial Palsy: Normal Motor Arm (Right): No drift Motor Arm (Left): No drift Motor Leg (Right): No drift Motor Leg (Left): No drift Limb Ataxia: Absent Sensory: Normal Best Language: No aphasia Dysarthia: Normal Extinction and Inattention: No abnormality Score: 0 Course Course Course Narrative: Patient Regashley Benadryl fluids had CT scan labs done patient does have some sinus disease which could be the cause of her vertigo symptoms I do feel she is safe to go home her symptoms have resolved she is okay with the plan to go home we will send her home with meclizine and close PCP follow up. Medical Decision Making Medical Decision Making [facility] Narrative: I will give the patient fluids check labs with the patient for a CT scan and reassess. Differential Diagnosis Differential Diagnoses: The differential diagnosis associated with the presentation includes Dizziness vertigo dehydration electrolyte abnormality weakness medication reaction Lab Data [facility] Lab Attestation statement: I reviewed the patient's lab results. 01/09/24 09:49 01/09/24 09:49 Labs: Lab Results 01/09/24 01/09/24 01/09/24 Range/Units 09:42 09:49 10:07 WBC 7.6 (4.8-10.8) X10*3/uL RBC 4.52 (4.20-5.50) X10*6/uL Hgb 14.7 (12.0-16.0) g/dl Hct 42.2 (37.0-47.0) % MCV 93.4 (80.0-98.0) fL MCH 32.5 (27.0-33.0) pg MCHC 34.8 (31.0-35.0) g/dl RDW 13.3 (11.0-16.0) % Plt Count 224 (160-400) X10*3/uL MPV 10.2 (9.4-12.3) fL Immature Gran % (Auto) 0.3 (0.0-0.4) % Neut % (Auto) 54.9 (45-73) % Lymph % (Auto) 35.3 (20-40) % Mclennan % (Auto) 5.8 (2-11) % Eos % (Auto) 2.9 (0-4) % Baso % (Auto) 0.8 (0-2) % Lymph # (Auto) 2.7 (1.2-4.9) X10*3/uL Mclennan # (Auto) 0.4 (0.1-1.2) X10*3/uL Eos # (Auto) 0.2 (0.0-0.4) X10*3/uL Baso # (Auto) 0.1 (0.0-0.2) X10*3/uL Abs Immat Gran (auto) 0.02 (0.00-0.03) X10*3/uL Absolute Neuts (auto) 4.2 (2.0-8.3) x10*3/uL Absolute Nucleated RBC 0.000 (0.0-0.012) X10*3/uL Nucleated RBC % (auto) 0.0 (0.0-0.2) /100WBC Sodium 140 (135-145) mmol/L Potassium 4.2 (3.3-5.1) mmol/L Chloride 105 (96-108) mmol/L Carbon Dioxide 24 (22-29) mmol/L Anion Gap 15 (12-20) BUN 17 H (9-16) mg/dL Creatinine 0.94 (0.5-1.4) mg/dL Estim Creat Clear Calc 63.3 Estimated GFR 58 POC Glucose 173 H (60-115) mg/dL Random Glucose 179 H (60-115) mg/dL Calcium 10.5 H (8.4-10.2) mg/dL Total Bilirubin 0.6 (0.0-1.0) mg/dL Direct Bilirubin 0.2 (0.0-0.5) mg/dL AST 29 (5-31) U/L ALT 25 (0-31) U/L Alkaline Phosphatase 74 (39-117) U/L Total Protein 7.7 (6.5-8.0) g/dL Albumin 4.5 (3.5-5.0) g/dL Lipase 12 (8-78) U/L Urine Color Urine Appearance Urine pH (5.0-9.0) Ur Specific [place] (1.005-1.025) Urine Protein (Neg-Trace) mg/dL Urine Glucose (UA) (Negative) mg/dL Urine Ketones (Negative) mg/dL Urine Blood (Negative) Urine Nitrite (Negative) Ur Leukocyte Esterase (Negative) Urine RBC (0-2) /HPF Urine WBC (0-5) /HPF Ur Squamous Epith Cells (0-2) /HPF Urine Bacteria (None Seen) Hyaline Casts (0-2) /LPF Influenza Type A (PCR) NEGATIVE (Negative) Influenza Type B (PCR) NEGATIVE (Negative) RSV RNA Qual (PCR) NEGATIVE (Negative) SARS-CoV-2 RNA (RT-PCR) NEGATIVE (Negative) 01/09/24 Range/Units 11:32 WBC (4.8-10.8) X10*3/uL RBC (4.20-5.50) X10*6/uL Hgb (12.0-16.0) g/dl Hct (37.0-47.0) % MCV (80.0-98.0) fL MCH (27.0-33.0) pg MCHC (31.0-35.0) g/dl RDW (11.0-16.0) % Plt Count (160-400) X10*3/uL MPV (9.4-12.3) fL Immature Gran % (Auto) (0.0-0.4) % Neut % (Auto) (45-73) % Lymph % (Auto) (20-40) % Mclennan % (Auto) (2-11) % Eos % (Auto) (0-4) % Baso % (Auto) (0-2) % Lymph # (Auto) (1.2-4.9) X10*3/uL Mclennan # (Auto) (0.1-1.2) X10*3/uL Eos # (Auto) (0.0-0.4) X10*3/uL Baso # (Auto) (0.0-0.2) X10*3/uL Abs Immat Gran (auto) (0.00-0.03) X10*3/uL Absolute Neuts (auto) (2.0-8.3) x10*3/uL Absolute Nucleated RBC (0.0-0.012) X10*3/uL Nucleated RBC % (auto) (0.0-0.2) /100WBC Sodium (135-145) mmol/L Potassium (3.3-5.1) mmol/L Chloride (96-108) mmol/L Carbon Dioxide (22-29) mmol/L Anion Gap (12-20) BUN (9-16) mg/dL Creatinine (0.5-1.4) mg/dL Estim Creat Clear Calc Estimated GFR POC Glucose (60-115) mg/dL Random Glucose (60-115) mg/dL Calcium (8.4-10.2) mg/dL Total Bilirubin (0.0-1.0) mg/dL Direct Bilirubin (0.0-0.5) mg/dL AST (5-31) U/L ALT (0-31) U/L Alkaline Phosphatase (39-117) U/L Total Protein (6.5-8.0) g/dL Albumin (3.5-5.0) g/dL Lipase (8-78) U/L Urine Color Yellow Urine Appearance Clear Urine pH 7.0 (5.0-9.0) Ur Specific [place] <= 1.005 (1.005-1.025) Urine Protein Negative (Neg-Trace) mg/dL Urine Glucose (UA) Negative (Negative) mg/dL Urine Ketones Negative (Negative) mg/dL Urine Blood Negative (Negative) Urine Nitrite Negative (Negative) Ur Leukocyte Esterase Trace H (Negative) Urine RBC 0-2 (0-2) /HPF Urine WBC 0-5 (0-5) /HPF Ur Squamous Epith Cells 0-2 (0-2) /HPF Urine Bacteria None Seen (None Seen) Hyaline Casts 0-2 (0-2) /LPF Influenza Type A (PCR) (Negative) Influenza Type B (PCR) (Negative) RSV RNA Qual (PCR) (Negative) SARS-CoV-2 RNA (RT-PCR) (Negative) Independent Interpretation I performed an independent interpretation of an: EKG Independent Historian Clinical information obtained from an independent historian. History obtained from or confirmed by: Other External Record Review External record reviewed: Inpatient record, Office record and Outpatient record Social Determinants Patient?s care significantly limited by Social Determinants of Health including: Problems related to primary support group Medications Administered Discontinued Medications Generic Name Dose Route Start Last Admin Trade Name Freq PRN Reason Stop Dose Admin Diphenhydramine HCl 25 mg 01/09/24 09:44 01/09/24 10:05 Diphenhydramine Hcl 50 Mg/Ml Vial IVPUSH 01/09/24 09:45 25 mg ONCE ONE Administration Sodium Chloride 1,000 mls @ 999 mls/hr 01/09/24 09:45 01/09/24 11:36 Ns IV 01/09/24 10:45 Infused .Q1H1M BROCK Infusion Metoclopramide HCl 10 mg 01/09/24 09:44 01/09/24 10:05 Metoclopramide Hcl 10 Mg/2 Ml Vial IVPUSH 01/09/24 09:45 10 mg ONCE ONE Administration Discharge Plan Discharge Clinical Impression: Chronic congestion of paranasal sinus, Vertigo Patient Disposition: Home, Self-Care Instructions: Vertigo (DC), Dizziness (ED) Additional Instructions: You were seen today for vertigo and nausea. You were given medications for nausea as well as for dizziness. You had CT x-rays and labs done which were all unremarkable. Please call follow up with your doctor if you have any other concerns please do not hesitate to come back to emergency department Prescriptions: New meclizine 12.5 mg tablet 12.5 mg PO TID PRN (Reason: dizziness) Qty: 60 0RF ondansetron 4 mg tablet,disintegrating 4 mg PO Q6H Qty: 14 0RF No Action atorvastatin 20 mg tablet 1 tab PO DAILY nabumetone 750 mg tablet 1 tab PO BID PRN (Reason: pain) atenolol 100 mg tablet 1 tab PO DAILY prazosin 1 mg capsule 1 cap PO TID methotrexate sodium 2.5 mg tablet 4 tab PO QWEEK amlodipine 10 mg tablet 1 tab PO DAILY folic acid 1 mg tablet 1 tab PO DAILY lisinopril 40 mg tablet 1 tab PO DAILY cholecalciferol (vitamin D3) [Vitamin D3] 25 mcg (1,000 unit) capsule 1 cap PO DAILY codeine-guaifenesin [Guaifenesin AC] 10-100 mg/5 mL liquid 5 ml PO Q6H PRN (Reason: cold symptoms) Qty: 120 0RF albuterol sulfate 90 mcg/actuation HFA aerosol inhaler 1 inh inhalation QID PRN (Reason: shortness of breath or wheezing) Qty: 8.5 0RF albuterol sulfate 90 mcg/actuation HFA aerosol inhaler 2 puff inhalation Q4-6H PRN (Reason: shortness of breath or wheezing) Qty: 8.5 0RF fluticasone propionate 50 mcg/actuation spray,suspension 1 spray intranasal loratadine 10 mg tablet 10 mg PO QAM pantoprazole 40 mg tablet,delayed release (DR/EC) 40 mg PO DAILY Qty: 90 3RF furosemide 20 mg tablet 20 mg PO DAILY Print Language: Bengali
[2024-01-09 09:35] VITALS: BP 136/81; BP 142/96; PULSE 66; PULSE 70; RESP 18; TEMP 36.6; O2SAT 94; O2SAT 95; BMI 36.4
[2024-01-09 09:45] LABS: Glucose, Whole Blood 173 mg/dL (60-115)
[2024-01-09 09:55] LABS: MANUAL DIFF FLAG NO
[2024-01-09 10:01] LABS: Basophils Absolute Auto 0.1 X10*3/uL (0.0-0.2); Basophils Percent Auto 0.8 % (0-2); Eosinophils Absolute Auto 0.2 X10*3/uL (0.0-0.4); Eosinophils Percent Auto 2.9 % (0-4); Hematocrit 42.2 % (37.0-47.0); Hemoglobin 14.7 g/dl (12.0-16.0); Imm Gran Abs Auto 0.02 X10*3/uL (0.00-0.03); Imm Gran Pct Auto 0.3 % (0.0-0.4); Lymphocytes Absolute Auto 2.7 X10*3/uL (1.2-4.9); Lymphocytes Percent Auto 35.3 % (20-40); Mean Corpuscular HGB Conc 34.8 g/dl (31.0-35.0); Mean Corpuscular Hemoglobin 32.5 pg (27.0-33.0); Mean Corpuscular Volume 93.4 fL (80.0-98.0); Mean Platelet Volume 10.2 fL (9.4-12.3); Monocytes Absolute Auto 0.4 X10*3/uL (0.1-1.2); Monocytes Percent Auto 5.8 % (2-11); Neutrophils Absolute Auto 4.2 x10*3/uL (2.0-8.3); Neutrophils Percent Auto 54.9 % (45-73); Platelet Count 224 X10*3/uL (160-400); Red Blood Count 4.52 X10*6/uL (4.20-5.50); Red Cell Distribution Width 13.3 % (11.0-16.0); White Blood Count 7.6 X10*3/uL (4.8-10.8)
--- NOTE | 2024-01-09 10:03 | PC.NURSE ---
alert and oriented. reporting dizziness since yesterday with associated nausea. reports hx of gastritis and says she has a epigastric burning sensation. abd soft non-tender. denies CP, SOB, vomiting, diarrhea. 20g IV left AC. labs drawn. swallow screen pass.
[2024-01-09] MEDS: diphenhydrAMINE HCL 50 MG/ML VIAL 25 MG IVPUSH (10:05)
[2024-01-09] MEDS: Metoclopramide HCl 10 MG/2 ML VIAL IVPUSH (10:05)
[2024-01-09] MEDS: 0.9 % Sodium Chloride 1,000 ML 999 ML IV (10:05)
[2024-01-09 10:25] LABS: Alanine Aminotransferase 25 U/L (0-31); Albumin Level 4.5 g/dL (3.5-5.0); Alkaline Phosphatase 74 U/L (39-117); Anion Gap 15 (12-20); Aspartate Amino Transferase 29 U/L (5-31); Bilirubin Direct 0.2 mg/dL (0.0-0.5); Bilirubin Total 0.6 mg/dL (0.0-1.0); Blood Urea Nitrogen 17 mg/dL (9-16); Calcium 10.5 mg/dL (8.4-10.2); Carbon Dioxide 24 mmol/L (22-29); Chloride 105 mmol/L (96-108); Creatinine Clr Calc Pharmacy 63.3; Estimated Glomerular Filt Rate 58; Glucose Random 179 mg/dL (60-115); Lipase 12 U/L (8-78); Potassium 4.2 mmol/L (3.3-5.1); Sodium 140 mmol/L (135-145); Total Protein 7.7 g/dL (6.5-8.0)
[2024-01-09 10:54] LABS: Influenza A PCR NEGATIVE (Negative); Influenza B PCR NEGATIVE (Negative); Resp Syncy Virus RNA Qual PCR NEGATIVE (Negative); SARS COV2 PCR INHOUSE NEGATIVE (Negative)
[2024-01-09 11:41] LABS: Appearance Urine Clear; Color Urine Yellow; Glucose Urine UA Negative (Negative); Leukocyte Esterase Urine Trace (Negative); Nitrite Urine Negative (Negative); Specific Gravity - Urine <= 1.005 (1.005-1.025); UMIC TRIGGER UACC YES; Urine Blood Negative (Negative); Urine Ketones Negative (Negative); Urine Protein Negative (Neg-Trace)
[2024-01-09 11:43] LABS: Bacteria Urine None Seen (None Seen); Hyaline Casts Urine 0-2 /LPF (0-2); RBC Urine 0-2 /HPF (0-2); Squamous Epithelial Cell Urine 0-2 /HPF (0-2); WBC Urine 0-5 /HPF (0-5)
[2024-01-09 12:49] VITALS: BP 125/70; PULSE 61; RESP 16; TEMP 36.8; O2SAT 98
[2024-01-09 12:50] VITALS: BP 125/70; PULSE 61; RESP 16; TEMP 36.8; O2SAT 98
== END 2024-01-09 12:54 | disposition home or self-care (01) ==
PROVIDERS: Emergency Provider Student in an Organized Health Care Education/Training Program; PCP Internal Medicine
DX: R42 Dizziness and giddiness (principal); R09.81 Nasal congestion; Z03.818 Encounter for observation for suspected exposure to other biological agents ruled out; E11.9 Type 2 diabetes mellitus without complications; I10 Essential (primary) hypertension; E78.5 Hyperlipidemia, unspecified; J45.909 Unspecified asthma, uncomplicated; Z79.02 Long term (current) use of antithrombotics/antiplatelets; Z79.899 Other long term (current) drug therapy
CPT/HCPCS: 0241U; 70450; 71046; 80048; 80076; 81001; 82947; 83690; 85025; 96361; 96374; 96375; 99284; J1200; J2765

== ENCOUNTER 2024-02-10 13:55 | Outpatient (AMB) | payer OTHER, SELFPAY ==
[2024-02-10 13:55] VITALS: BMI 36.3
--- NOTE | 2024-02-10 13:55 | A.OFFVIS_ITS ---
Vital Signs 02/10/24 13:55 Height 5 ft 6 in Weight 225 lb BMI 36.3 Intake Visit Reasons: Follow up [facility] 12/31/23 Intake Note: follow up for bilateral LE swelling worse over the past year, has discoloration/hyperpigmentation on bilateral LE. Accompanied by: Self / Same As Patient Allergies aspirin [ASA] Adverse Reaction (Intermediate, Verified 02/10/24 13:59) STOMACH UPSET, gi upset HPI HPI Follow up [facility] 12/31/23: Details: Very pleasant 73-year-old female presents for follow-up regarding varicose veins. She reports that the swelling appears to be doing relatively well. She does have some mild edema. She reports that she has been on diuretic and it appears to be doing well with that. She now presents for follow-up with venous insufficiency testing. [facility] Medical History Borderline diabetes COVID-19 vaccine series completed Lumbar degenerative disc disease Psoriatic arthritis High cholesterol HTN (hypertension) Surgical History History of esophagogastroduodenoscopy (EGD) H/O colonoscopy History of back surgery Family History Mother Diabetes Father Diabetes Social History Household Members: None Alcohol intake: never Patient Tobacco Use Status: Never used Tobacco Review of Systems Const All systems reviewed & are unremarkable except as noted in HPI and below Reports no additional complaints ENT Reports Normal hearing present Card Denies chest pain, Denies chest pain at rest, Denies chest pain with activity and Denies pedal edema Resp Denies cough GI Denies abdominal pain Musc Denies abnormal gait, Denies muscle cramps and Denies radiating pain into limb Skin/Breast Denies skin ulcer and Denies wounds Neuro Reports Normal hearing present and Denies abnormal gait Psych Reports no additional complaints Physical Exam Vital Signs: BMI result Body Mass Index 36.3 Const General: cooperative, healthy appearing and comfortable Orientation/consciousness: oriented to person, oriented to place and oriented to time HEENT Head: Yes normal to inspection Neck Neck: Yes normal visual inspection Carotids: no bruits Chest Chest palpation & inspection: normal inspection of the chest Resp Effort & Inspection: normal respiratory effort and able to speak in complete sentences Auscultation: clear to auscultation bilaterally, no crackles, no rales, no rhonchi and no wheezes Cardio Rate: regular rate Rhythm: regular rhythm Heart sounds: S1 normal heart sound present and S2 normal heart sound present Bruits: no carotid bruits Peripheral pulses: Peripheral pulses 2+ throughout GI Inspection: Yes normal to inspection Skin Wounds: no wounds Hair: normal Neuro General: oriented to person, oriented to place and oriented to time Cranial nerves: Yes CN's II-XII intact bilaterally and Yes Normal hearing present Cognition (Neuro): normal cognition Motor exam (neuro): 5/5 motor strength present throughout Extrem Other: venous exam: +1 edema General: No clubbing, No cyanosis and Yes edema Psych Appearance: grossly normal Mental Status: mental status grossly normal Speech and movement: Normal speech and movement present Results Reviewed Results Reviewed: Brief summary of venous insufficiency testing is as follows: right great saphenous vein: negative right small saphenous vein: negative right accessory vein: none present left great saphenous vein: negative left small saphenous vein: negative left accessory vein: none present Please note there is no evidence of any venous aneurysms or significant tortuosity Assessment & Plan Assessment & Plan (1) Varicose veins of right lower extremity with inflammation: Code(s): I83.11 - Varicose veins of right lower extremity with inflammation Category: Medical Plan: In short patient is negative for any significant venous insufficiency. At the current time she does appear to be doing relatively well and would recommend only conservative measures including compression elevation and exercise. She will follow up with us on an as-needed basis. Thank you for allowing us to assist in her care. If there are any questions or concerns please do not hesitate to contact us. Coding Level of Care Code Est Pt Level 4 (01465) Diagnoses Varicose veins of right lower extremity with inflammation I83.11
== END 2024-02-10 14:35 | disposition home or self-care (01) ==
PROVIDERS: PCP Internal Medicine; Visit Provider Surgery Vascular Surgery
DX: I83.11 Varicose veins of right lower extremity with inflammation (principal)
CPT/HCPCS: 99214

== ENCOUNTER → 2024-02-10 13:55 | Outpatient (BNVA) | payer OTHER, SELFPAY | PROVIDERS: PCP Internal Medicine; Visit Provider Surgery Vascular Surgery | DX: I83.11 Varicose veins of right lower extremity with inflammation (principal) | CPT/HCPCS: 99212 ==

== ENCOUNTER 2024-04-27 08:33 | Outpatient (REF) | payer OTHER, SELFPAY ==
[2024-04-27 12:28] LABS: Alanine Aminotransferase 29 U/L (0-31); Albumin Level 4.5 g/dL (3.5-5.0); Alkaline Phosphatase 70 U/L (39-117); Anion Gap 12 (12-20); Aspartate Amino Transferase 31 U/L (5-31); Bilirubin Total 0.6 mg/dL (0.0-1.0); Blood Urea Nitrogen 19 mg/dL (9-16); Calcium 10.3 mg/dL (8.4-10.2); Carbon Dioxide 26 mmol/L (22-29); Chloride 106 mmol/L (96-108); Cholesterol 169 mg/dL (<200); Estimated Glomerular Filt Rate > 60; Glucose Random 115 mg/dL (60-115); HDL Cholesterol 37 mg/dL (>40); LDL Cholesterol Calculated 67 mg/dL (<100); Potassium 4.4 mmol/L (3.3-5.1); Sodium 140 mmol/L (135-145); Total Protein 7.5 g/dL (6.5-8.0); Triglycerides 326 mg/dL (<150)
== END 2024-04-27 08:34 | disposition home or self-care (01) ==
LOC: HO.HHCL 08:33
PROVIDERS: Visit Provider Internal Medicine
DX: I10 Essential (primary) hypertension (principal); E78.5 Hyperlipidemia, unspecified
CPT/HCPCS: 36415; 80053; 80061

== ENCOUNTER 2024-05-11 09:49 | Emergency (ER) | payer OTHER, SELFPAY ==
--- NOTE | ~2024-05-11 | XR_ITS ---
EXAMINATION: XR LUMBOSACRAL SPINE CLINICAL INFORMATION: pain COMPARISON: None available. TECHNIQUE: Three views of the lumbosacral spine. FINDINGS: Surgical changes, L4-S1. Hardware is intact. There is spondylitic change throughout the lumbar spine with mild anterior wedging at the thoracolumbar junction but this appears chronic. No fracture or destructive process. XR/XR lumbar spine 2-3V IMPRESSION: Chronic changes noted. Hardware intact. Electronically signed by: Adair Wagner MD 05/11/2024 12:40 PM SERINA DURÁN
[2024-05-11 10:23] VITALS: BP 102/61; PULSE 58; RESP 20; TEMP 36.4; O2SAT 96; BMI 35.0
--- NOTE | 2024-05-11 11:45 | ED.GENADULT ---
HPI - General Adult General Chief complaint: Back Pain/Injury Stated complaint: Lower back pain Time Seen by Provider: 05/11/24 11:41 Source: patient Mode of arrival: ambulatory Limitations: no limitations History of Present Illness ED Provider: Marin TAMEZ narrative: Patient is a 73-year-old female with history of HTN, high cholesterol, psoriatic arthritis, lumbar DDD presenting to the emergency department with complaint of lumbar pain for the past 2 weeks. Denies fall or other trauma. Has taken Tylenol and a medrol dose pack with little relief. Reports pain radiates down both legs. Denies urinary symptoms. Denies fevers. Denies saddle anesthesia or bowel/bladder incontinence. MD complaint: back pain Onset (ago): week(s) Location: back Radiation: distal Quality: aching Pain Consistency: constant Relieving factors: rest Exacerbating factors: movement Associated symptoms: denies other symptoms Treatments prior to arrival: other Related Data Home Medications ?Medication ?Instructions ?Recorded ?Confirmed amlodipine 10 mg tablet 1 tab PO DAILY 02/14/21 02/14/21 atenolol 100 mg tablet 1 tab PO DAILY 02/14/21 02/14/21 atorvastatin 20 mg tablet 1 tab PO DAILY 02/14/21 02/14/21 cholecalciferol (vitamin D3) 25 1 cap PO DAILY 02/14/21 02/14/21 mcg (1,000 unit) capsule (Vitamin D3) folic acid 1 mg tablet 1 tab PO DAILY 02/14/21 02/14/21 lisinopril 40 mg tablet 1 tab PO DAILY 02/14/21 02/14/21 methotrexate sodium 2.5 mg tablet 4 tab PO QWEEK 02/14/21 02/14/21 nabumetone 750 mg tablet 1 tab PO BID PRN pain 02/14/21 02/14/21 prazosin 1 mg capsule 1 cap PO TID 02/14/21 02/14/21 fluticasone propionate 50 1 spray intranasal 09/03/22 mcg/actuation nasal spray,suspension loratadine 10 mg tablet 10 mg PO QAM 09/03/22 furosemide 20 mg tablet 20 mg PO DAILY 12/18/23 Previous Rx's ?Medication ?Instructions ?Recorded albuterol sulfate 90 mcg/actuation 1 inh inhalation QID PRN shortness 05/19/22 aerosol inhaler of breath or wheezing #8.5 grams codeine 10 mg-guaifenesin 100 mg/5 5 ml PO Q6H PRN cold symptoms #120 05/19/22 mL oral liquid (Guaifenesin AC) mL albuterol sulfate 90 mcg/actuation 2 puff inhalation Q4-6H PRN 05/13/23 aerosol inhaler shortness of breath or wheezing #8.5 grams pantoprazole 40 mg tablet,delayed 40 mg PO DAILY #90 tabs 09/30/23 release meclizine 12.5 mg tablet 12.5 mg PO TID PRN dizziness #60 01/09/24 tabs ondansetron 4 mg disintegrating 4 mg PO Q6H #14 tabs 01/09/24 tablet cyclobenzaprine 5 mg tablet 5 mg PO TID PRN muscle spasm #10 05/11/24 tabs lidocaine 5 % topical patch 1 patch topical DAILY #15 ea 05/11/24 Allergies Allergy/AdvReac Type Severity Reaction Status Date / Time aspirin [ASA] AdvReac Intermediate STOMACH Verified 05/11/24 10:24 UPSET, gi upset Review of Systems Review of Systems: as per HPI Yes all other systems are reviewed and are negative Constitutional: Constitutional: Reports as per HPI [facility] Past Medical History Medical History Borderline diabetes COVID-19 vaccine series completed Lumbar degenerative disc disease Psoriatic arthritis High cholesterol HTN (hypertension) Surgical History History of esophagogastroduodenoscopy (EGD) H/O colonoscopy History of back surgery Family History Family History Mother Diabetes Father Diabetes Social History Social History Household Members: None Alcohol intake: never Patient Tobacco Use Status: Never used Tobacco Advance Directives: No Advance Directives Information Provided: Yes Physical Exam ED Vital Signs: Vital Signs - 24 hr 05/11/24 10:23 Temperature 97.5 F Pulse Rate 58 Respiratory Rate 20 Blood Pressure 102/61 Pulse Oximetry 96 Oxygen Delivery Method Room Air BMI result Body Mass Index 35.0 Vital signs have been reviewed and appear to be correct. Blood pressure normal. Heart rate normal. Respiratory rate normal. Temperature normal. Oxygen saturation normal. Const General: cooperative, healthy appearing and no acute distress Orientation/consciousness: oriented to person, oriented to place, oriented to time and patient oriented x3 Limitations: no limitations HENMT Head: Yes normocephalic and Yes atraumatic Ears: external ears normal General nose exam: Normal external nose present Face and sinus: Yes face symmetric Mouth: oropharynx normal and moist mucous membranes Throat: Yes uvula midline Eyes Pupils: Equal, round and reactive pupils present Neck Neck: Yes normal visual inspection and Yes supple Resp Effort & Inspection: normal respiratory effort and able to speak in complete sentences Auscultation: clear to auscultation bilaterally Cardio Rate: regular rate Rhythm: regular rhythm Heart sounds: S1 normal heart sound present and S2 normal heart sound present GI Palpation (GI): Soft to palpation and nontender Auscultation: normoactive bowel sounds General: Yes no CVA tenderness Back/Spine/Pelvis Back: no CVA tenderness Thoracic/Lumbar Spine: thoracic and lumbar spine normal to inspection, thoraco-lumbar ROM normal, straight leg raise negative bilaterally, pain with thoraco-lumbar ROM, paraspinal muscle tenderness bilaterally in the upper lumbar and on the right greater than left, No thoracic spinal tenderness and No lumbar spinal tenderness Pelvis: no pain with anterior-posterior compression and no pain with lateral compression Skin General skin exam: elasticity normal and turgor normal Neuro General: oriented to person, oriented to place, oriented to time, patient oriented x3, tone normal, moves all extremities, Normal light touch and pain sensation, no focal motor deficits, CN's II-XI intact bilaterally and deep tendon reflexes 2+ bilaterally Cranial nerves: Yes Equal, round and reactive pupils present Cognition (Neuro): normal cognition Motor exam (neuro): 5/5 motor strength present throughout Extrem General: Yes full ROM, Yes no pedal edema and Yes no calf tenderness Psych Mental Status: mental status grossly normal Affect: normal affect Thought process: Normal thought process present Medical Decision Making Medical Decision Making MDM Narrative: Patient is a 73-year-old female with history of HTN, high cholesterol, psoriatic arthritis, lumbar DDD presenting to the emergency department with complaint of lumbar pain for the past 2 weeks. On exam patient is awake, A+Ox3, VS WNL, afebrile, normal neurological exam without focal deficits, physical exam findings as above. Given reported symptoms and physical exam findings, initial differential includes lumbar strain, lumbar radiculopathy, degenerative disc disease, disc herniation, spinal stenosis, spondylosis. Less likely vertebral fracture. Less likely UTI but will check UA. Do not suspect malignancy/mass, SEA, cauda equina/cord compression. X-ray lumbar spine notable for no acute fracture or subluxation. My interpretation is in agreement with the radiologist's interpretation. Urinalysis notable for 3+ leukocytes, negative nitrites, no bacteria, will wait for culture prior to initiating treatment as patient is without urinary symptoms. Will discharge patient home on Flexeril and lidocaine patches. Follow up with PCP. Return precautions discussed at bedside. Patient verbalized understanding of and agreement with plan. Differential Diagnosis Differential Diagnoses: The differential diagnosis associated with the presentation includes As per [facility]. Admission/Observation Consideration of admission/observation: Escalation of care including admission/observation considered Patient would have been admitted to the hospital had their work up had any findings where hospital admission was appropriate and their clinical presentation warranted hospital admission. Lab Data [facility] Lab Attestation statement: I reviewed the patient's lab results. as per [facility] Labs: Lab Results 05/11/24 Range/Units 12:33 Urine Color Dark Yellow Urine Appearance Cloudy Urine pH 5.5 (5.0-9.0) Ur Specific [place] 1.015 (1.005-1.025) Urine Protein Negative (Neg-Trace) mg/dL Urine Glucose (UA) Negative (Negative) mg/dL Urine Ketones Trace (Negative) mg/dL Urine Blood Negative (Negative) Urine Nitrite Negative (Negative) Ur Leukocyte Esterase Large (3+) H (Negative) Urine RBC 0-2 (0-2) /HPF Urine WBC 21-50 H (0-5) /HPF Ur Squamous Epith Cells 3-5 (0-2) /HPF Urine Bacteria None Seen (None Seen) Hyaline Casts 3-5 (0-2) /LPF Independent Interpretation I performed an independent interpretation of an: Plain X-Ray Interpretation: X-ray lumbar spine notable for no acute fracture or subluxation. Radiology Impression Discussion of test interpretation with radiology: I have reviewed the radiologist's reading. Radiologist Impression: XR/XR lumbar spine 2-3V IMPRESSION: Chronic changes noted. Hardware intact. External Record Review External record reviewed: Inpatient record, Office record and Outpatient record Prescription Management I considered prescription management with: Pain Medication and Other Discharge Plan Discharge Clinical Impression: Strain of lumbar region Patient Disposition: Home, Self-Care Instructions: Low Back Strain (ED), Lower Back Exercises (ED) Additional Instructions: You were evaluated in the emergency department today for back pain. Your evaluation did not show signs of medical conditions requiring emergent intervention at this time. We recommended that you use ibuprofen or Tylenol per package directions every 6 hours as needed for pain. If necessary, you can alternate these medications so that you take one medication every 3 hours. For instance, at noon take ibuprofen, then at 3:00 p.m. take Tylenol, then at 6:00 p.m. take ibuprofen. You have been prescribed a muscle relaxer which you may take every 8 hours as needed for spasms. You have been prescribed 5% topical lidocaine patches which you can wear for up to 12 hours in a 24 hour period. Do not apply heat directly over the patches. Please schedule an appointment for follow-up with your primary care physician this week for further evaluation of your symptoms. Return to the emergency department if you experience worsening back pain, difficulty walking, fevers, numbness, tingling, incontinence, groin numbness or tingling, or any other concerning symptoms. Prescriptions: New cyclobenzaprine 5 mg tablet 5 mg PO TID PRN (Reason: muscle spasm) Qty: 10 0RF lidocaine 5 % adhesive patch,medicated 1 patch topical DAILY Qty: 15 0RF Rx Instructions: leave on most painful area for up to 12 hrs No Action atorvastatin 20 mg tablet 1 tab PO DAILY nabumetone 750 mg tablet 1 tab PO BID PRN (Reason: pain) atenolol 100 mg tablet 1 tab PO DAILY prazosin 1 mg capsule 1 cap PO TID methotrexate sodium 2.5 mg tablet 4 tab PO QWEEK amlodipine 10 mg tablet 1 tab PO DAILY folic acid 1 mg tablet 1 tab PO DAILY lisinopril 40 mg tablet 1 tab PO DAILY cholecalciferol (vitamin D3) [Vitamin D3] 25 mcg (1,000 unit) capsule 1 cap PO DAILY codeine-guaifenesin [Guaifenesin AC] 10-100 mg/5 mL liquid 5 ml PO Q6H PRN (Reason: cold symptoms) Qty: 120 0RF albuterol sulfate 90 mcg/actuation HFA aerosol inhaler 1 inh inhalation QID PRN (Reason: shortness of breath or wheezing) Qty: 8.5 0RF meclizine 12.5 mg tablet 12.5 mg PO TID PRN (Reason: dizziness) Qty: 60 0RF ondansetron 4 mg tablet,disintegrating 4 mg PO Q6H Qty: 14 0RF albuterol sulfate 90 mcg/actuation HFA aerosol inhaler 2 puff inhalation Q4-6H PRN (Reason: shortness of breath or wheezing) Qty: 8.5 0RF fluticasone propionate 50 mcg/actuation spray,suspension 1 spray intranasal loratadine 10 mg tablet 10 mg PO QAM pantoprazole 40 mg tablet,delayed release (DR/EC) 40 mg PO DAILY Qty: 90 3RF furosemide 20 mg tablet 20 mg PO DAILY Referrals: [facility] [Provider Group] Print Language: English
[2024-05-11 12:44] LABS: Appearance Urine Cloudy; Color Urine Dark Yellow; Glucose Urine UA Negative (Negative); Leukocyte Esterase Urine Large (3+) (Negative); Nitrite Urine Negative (Negative); PH 5.5 (5.0-9.0); Specific Gravity - Urine 1.015 (1.005-1.025); UMIC TRIGGER UACC YES; Urine Blood Negative (Negative); Urine Ketones Trace mg/dL (Negative); Urine Protein Negative (Neg-Trace)
[2024-05-11 12:57] LABS: Bacteria Urine None Seen (None Seen); RBC Urine 0-2 /HPF (0-2); UACC Culture Trigger YES; WBC Urine 21-50 /HPF (0-5)
[2024-05-11 14:36] VITALS: BP 102/61; PULSE 58; RESP 20; TEMP 36.4; O2SAT 96
== END 2024-05-11 14:36 | disposition home or self-care (01) ==
PROVIDERS: Registered Nurse Emergency; Emergency Provider Emergency Medicine; PCP Internal Medicine
DX: S39.012A Strain of muscle, fascia and tendon of lower back, initial encounter (principal); X58.XXXA Exposure to other specified factors, initial encounter; Y93.9 Activity, unspecified; Y92.9 Unspecified place or not applicable; Y99.9 Unspecified external cause status; I10 Essential (primary) hypertension; L40.50 Arthropathic psoriasis, unspecified; M51.369 Other intervertebral disc degeneration, lumbar region without mention of lumbar back pain or lower extremity pain
CPT/HCPCS: 72100; 81001; 87086; 99282; 99283

== ENCOUNTER 2024-07-07 12:58 | Outpatient (RCR) | payer OTHER, SELFPAY | END 2024-07-07 15:24 | disposition home or self-care (01) | LOC: HO.PT 12:58 | PROVIDERS: PCP Internal Medicine; Visit Provider Internal Medicine Rheumatology | DX: M51.369 Other intervertebral disc degeneration, lumbar region without mention of lumbar back pain or lower extremity pain (principal) | CPT/HCPCS: 97110; 97161; 97535 ==

== ENCOUNTER 2024-08-20 09:06 | Outpatient (REF) | payer OTHER, SELFPAY ==
[2024-08-20 10:07] LABS: Cholesterol 171 mg/dL (<200); HDL Cholesterol 37 mg/dL (>40); LDL Cholesterol Calculated 65 mg/dL (<100); Triglycerides 345 mg/dL (<150)
== END 2024-08-20 09:07 | disposition home or self-care (01) ==
LOC: HO.LAB 09:06
PROVIDERS: Absent Provider Internal Medicine; PCP Internal Medicine; Visit Provider Internal Medicine Cardiovascular Disease
DX: E78.5 Hyperlipidemia, unspecified (principal)
CPT/HCPCS: 36415; 80061

== ENCOUNTER 2024-09-22 11:47 | Outpatient (AMB) | payer OTHER, SELFPAY ==
--- NOTE | 2024-09-22 11:50 | MHC.OFFVIS ---
Vital Signs 09/22/24 11:55 Height 5 ft 6 in Weight 216 lb BMI 34.9 BP 99/54 L Blood Pressure Location Lt brachial Position Sitting Pulse 64 Pulse Oximetry (%) 95 Oxygen Delivery Method Room Air Intake Visit Reasons: follow up GERD Intake Note: Patient yearly follow up for GERD. Patient cc: abdominal discomfort on and off, denies any other GI issues. Manifold Operator Required: No Accompanied by: Self / Same As Patient Allergies aspirin [ASA] Adverse Reaction (Intermediate, Verified 09/22/24 11:49) STOMACH UPSET, gi upset HPI HPI follow up GERD: Details: Assessment & Plan (1) GERD (gastroesophageal reflux disease): Code(s): K21.9 - Gastro-esophageal reflux disease without esophagitis Category: Medical Plan Her GERD continues to be well controlled on her pantoprazole. She has no new health conditions to report and she has not due for colonoscopy until 2026. Return office visit in 6 months Medications: Refilled pantoprazole 40 mg PO DAILY 90 tabs 3RF D12.6 - Benign neoplasm of colon, unspecified, K21.9 - Gastro-esophageal reflux disease without esophagiti TODAY'S VISIT She prefers winter weather. She continues to do well on her pantoprazole. Since she has been very stabilize suggest we do a 1 year follow-up and she is agreeable to this. Return office visit in 1 year [facility] Medical History (Updated 09/22/24 @ 12:09 by GASPER Andrews) COVID-19 Borderline diabetes COVID-19 vaccine series completed Lumbar degenerative disc disease Psoriatic arthritis High cholesterol HTN (hypertension) Surgical History History of esophagogastroduodenoscopy (EGD) H/O colonoscopy History of back surgery Family History Mother Diabetes Father Diabetes Social History Household Members: None Alcohol intake: never Patient Tobacco Use Status: Never used Tobacco Review of Systems Const Denies fatigue, Denies fever(s), Denies night sweats, Denies poor appetite and Denies weight loss Eyes Details: glasses Reports requires corrective lenses ENT Reports Normal hearing present, Denies dental pain, Denies dysphagia, Denies hearing loss, Denies mouth pain, Denies odynophagia, Denies throat swelling, Denies tongue swelling and Reports other (Dentition adequate) Card Reports no additional complaints Resp Reports no additional complaints GI Details: Denies abdominal pain, Denies melena, Denies bloating, Denies hematochezia, Denies constipation, Denies GI cramping, Denies dysphagia, Denies excessive flatus, Denies early satiety, Reports heartburn, Denies diarrhea, Denies nausea, Denies odynophagia, Denies vomiting and Denies hematemesis Skin/Breast Denies pruritus, Denies lesions, Denies rash and Denies jaundice Neuro Reports Normal hearing present and Denies Abnormal speech present Endo Denies fatigue Aller/Immun Denies throat swelling and Denies tongue swelling Physical Exam Vital Signs: Last Vital Signs Pulse 64 09/22/24 11:55 BP 99/54 L 09/22/24 11:55 Pulse Ox 95 09/22/24 11:55 Oxygen Delivery Method Room Air 09/22/24 11:55 BMI result Body Mass Index 34.9 Const General: cooperative, no acute distress, well developed and well groomed Nutritional Appearance: well nourished and obese Orientation/consciousness: oriented to person, oriented to place and oriented to time Limitations: No language barrier HEENT Head: Yes normocephalic and Yes atraumatic Eyes General: appearance normal, both eyes and all related structures Pupils: Equal, round and reactive pupils present Neck Neck: Yes normal visual inspection and Yes no lymphadenopathy Thyroid: Thyroid normal Resp Effort & Inspection: normal respiratory effort and able to speak in complete sentences Auscultation: clear to auscultation bilaterally Cardio Rate: regular rate Rhythm: regular rhythm Heart sounds: Normal, physiologic split S2 sound present Peripheral pulses: radial pulses present and posterior tibial pulses present GI Inspection: No distended, No Abdominal panniculus present and Yes obesity Palpation (GI): Soft to palpation, nontender, no guarding, not rigid and No hepatosplenomegaly present Percussion: Yes normal to percussion Auscultation: normal bowel sounds Rectal Exam - Female: deferred Skin General skin exam: no rashes or lesions noted, turgor normal, skin not dry, no jaundice, No spider nevi and no striae Rashes: no rashes Nails: normal Neuro General: oriented to person, oriented to place and oriented to time Cranial nerves: Yes Equal, round and reactive pupils present and Yes Normal hearing present Speech: No Abnormal speech present Extrem General: Yes normal to inspection, No clubbing, No cyanosis and No edema Psych Appearance: grossly normal and well kempt Mental Status: mental status grossly normal Speech and movement: Normal speech and movement present Affect: normal affect Attitude: cooperative Thought process: Normal thought process present and not confabulating Thought content: Normal thought content present Insight: Limited insight present (Psych) Judgement: Limited judgement present (Psych) Assessment & Plan Assessment & Plan (1) GERD (gastroesophageal reflux disease): Code(s): K21.9 - Gastro-esophageal reflux disease without esophagitis Category: Medical Plan She prefers winter weather. She continues to do well on her pantoprazole. Since she has been very stabilize suggest we do a 1 year follow-up and she is agreeable to this. Return office visit in 1 year Coding Level of Care Code Est Pt Level 3 (09120) Diagnoses GERD (gastroesophageal reflux disease) K21.9
[2024-09-22 11:55] VITALS: BP 99/54; PULSE 64; O2SAT 95; BMI 34.9
--- OUTSIDE RECORDS SUMMARY | 2024-09-22 14:14 | XMS_ITS | Patient Health Record ---
[facility] Address [address] [place] [address] Care Team Providers Care In Home Sales Consultant Name Role Phone Letty Morrison Primary Care Provider Katina Stephon Galindo Unavailable [phone] Allergies Allergen (clinical drug ingredient) Drug/Non Drug Allergy documented on EMR Reaction Allergy Type Onset Date Status aspirin Aspirin cannot take, gastritis Drug Allergy Active Reason For Referral No Information Medications Medication SIG (Take, Route, Frequency, Duration) Notes Start Date End Date Status Lisinopril 40 MG 1 tablet Orally Once a day Active Loratadine 10 MG 1 tablet Orally Once a day for 30 day(s) Active Folic Acid 1 MG 1 tablet Orally Once a day for 30 day(s) Active Fluticasone Propionate 50 MCG/ACT 1 spray in each nostril Nasally Once a day for 30 day(s) Active Methotrexate 2.5 MG as directed Orally Active Nabumetone 750 MG as directed Orally T wice a day Active Pantoprazole Sodium 40 MG 1 tablet Orall y Once a day for 30 day(s) Active Atenolol 100 MG as directed Orally O nce a day Active Atorvastatin Calcium 20 MG 1 tablet Oral ly Once a day for 30 day(s) Active Symbicort 80-4.5 MCG/ACT 1 puff as neede d Inhalation every 4 hrs Active amLODIPine Besylate 10 MG 1 tablet Orall y Once a day Active Vitamin D3 25 MCG (1000 UT) 1 capsule Or ally Once a day Active Social History Tobacco Use: Social History Observation Description Date Details (start date - stop date) Never Smoker NA - NA Tobacco Use/Smoking Question Answer Notes Are you a: nonsmoker Additional Findings: Tobacco Non-User Current no n-smoker Alcohol Screen Question Answer Notes Did you have a drink containing alcohol in the p ast year? No Points 0 Interpretation Negative Tobacco use other than smoking: Question Answer Notes Are you an other tobacco user? No Problems Problem Type SNOMED Code ICD Code Onset Dates Problem Status W/U Status Risk Notes Problem Atherosclerosis of little traverse arteries of the extremities (986600828641705) Atherosclerosis of little traverse artery of both lower extremities, with unspecified presence of clinical manifestation (I70.203) Active confirmed Vital Signs Height 5ft 6in in 04/19/2024 Weight 217 lbs 04/19/2024 BMI 35.02 kg/m2 04/19/2024 Procedures Procedure Date Ordered Date Performed Result Body Sit e 20909-CYQNOVH NAIL, 6 OR MORE 10/13/2023 N/A 16581-Zbmfkudp Plate 10/13/2023 N/A 17775-HFMN SKIN LESIONS, OVER 4 10/13/2023 N/A 48763-UHDXOSF NAIL, 6 OR MORE 01/12/2024 N/A 22125-Svodidqi Plate 01/12/2024 N/A 42108-BXKQ SKIN LESIONS, OVER 4 01/12/2024 N/A 81484-DPVJXDY NAIL, 6 OR MORE 04/19/2024 N/A 95353-Ufibowke Plate 04/19/2024 N/A 02748-LPYA SKIN LESIONS, OVER 4 04/19/2024 N/A Encounters Encounter [facility] Date [facility] [address] 10/13/[facility]23 Stephon Nieto Atherosclerosis of little traverse artery of both lower extremities, with unspecified presence of clinical manifestation I70.203 ; Tinea unguium B35.1 ; Pain in right toe(s) M79.674 ; Pain in left toe(s) M79.675 and Ingrowing nail L60.[address] [facility] [address] 01/12/2024 Stephon Nieto Atherosclerosis of little traverse artery of both lower extremities, with unspecified presence of clinical manifestation I70.203 ; Tinea unguium B35.1 ; Pain in right toe(s) M79.674 ; Pain in left toe(s) M79.675 and Ingrowing nail L60.0 [facility] [address] [facility] [address] [place] [address] 04/19/2024 Stephon Nieto Atherosclerosis of little traverse artery of both lower extremities, with unspecified presence of clinical manifestation I70.203 ; Tinea unguium B35.1 ; Pain in right toe(s) M79.674 ; Pain in left toe(s) M79.675 and Ingrowing nail L60.0 [facility] [address] [place] [address] 2024 Stephon Nieto Assessments Encounter Date Diagnosis (ICD Code) Assessment Notes Treatment Notes Treatment Clinical Notes Section Notes 10/13/2023 Tinea unguium (ICD-10 - B35.1) 10/13/2023 Atherosclerosis of little traverse artery of both lower extremities, with unspecified presence of clinical manifestation (ICD-10 - I70.203) 01/12/2024 Tinea unguium (ICD-10 - B35.1) 01/12/2024 Atherosclerosis of little traverse artery of both lower extremities, with unspecified presence of clinical manifestation (ICD-10 - I70.203) 04/19/2024 Tinea unguium (ICD-10 - B35.1) 04/19/2024 Atherosclerosis of little traverse artery of both lower extremities, with unspecified presence of clinical manifestation (ICD-10 - I70.203) 01/12/2024 Pain in right toe(s) (ICD-10 - M79.674) 04/19/2024 Pain in right toe(s) (ICD-10 - M79.674) 10/13/2023 Pain in right toe(s) (ICD-10 - M79.674) 10/13/2023 Pain in left toe(s) (ICD-10 - M79.675) 04/19/2024 Pain in left toe(s) (ICD-10 - M79.675) 01/12/2024 Pain in left toe(s) (ICD-10 - M79.675) 04/19/2024 Ingrowing nail (ICD-10 - L60.0) 10/13/2023 Ingrowing nail (ICD-10 - L60.0) 01/12/2024 Ingrowing nail (ICD-10 - L60.0) Plan Of Treatment Pending Test Test Name Order Date X ray : Foot, right 3V 12/20/2021 25119-JQAVLUO NAIL, 6 OR MORE 04/11/2022 88451-IXVEXKA NAIL, 6 OR MORE 12/13/2021 12464-OZYGOOA NAIL, 6 OR MORE 07/29/2022 56790-FDFRUAN NAIL, 6 OR MORE 10/17/2022 73538-CQJCYRV NAIL, 6 OR MORE 01/16/2023 84451-KADQIBX NAIL, 6 OR MORE 04/14/2023 58953-UJAZCYJ NAIL, 6 OR MORE 07/14/2023 91181-WOWCSEL NAIL, 6 OR MORE 10/13/2023 19045-ESISSUG NAIL, 6 OR MORE 01/12/2024 24132-RIEPJJQ NAIL, 6 OR MORE 04/19/2024 35637-Tyhirvii Plate 04/19/2024 99929-Revzjwfh Plate 01/12/2024 32802-Qbhqodwd Plate 07/29/2022 54433-Fmbnacxj Plate 10/13/2023 65625-Ncoerozp Plate 07/14/2023 30333-Usgjwbik Plate 04/14/2023 55279-Dvkvsgud Plate 01/16/2023 12187-Qcxotgxm Plate 10/17/2022 01951-Xkxabvsz Plate 12/13/2021 52952-ZTRL SKIN LESIONS, OVER 4 04/11/20 22 16098-DIGJ SKIN LESIONS, OVER 4 10/18/19 23 51045-WEIV SKIN LESIONS, OVER 4 07/29/19 23 92847-AUSE SKIN LESIONS, OVER 4 01/17/20 23 05663-ZWWA SKIN LESIONS, OVER 4 04/14/20 23 03166-ECCV SKIN LESIONS, OVER 4 07/14/19 24 22825-OGBP SKIN LESIONS, OVER 4 10/13/19 24 66337-LOCG SKIN LESIONS, OVER 4 01/12/20 24 78279-RXFL SKIN LESIONS, OVER 4 04/19/20 24 40626-HIRI SKIN LESIONS, 2 TO 4 12/14/19 Next Appt Details Provider Name:Stephon Nieto , 10/28/2024 09:30:00 AM, [address], [place], [address], Insurance Providers Payer Name Payer Address Payer Phone Subscriber Number Group Number Insured Name Patient Relationship to Insured Coverage Start Date Coverage End Date [employer] Medicare-[id number] [address] [address] [place] [address] [id number] Letty Moran Self - patient is the insured Medical (General) History Medical History History ICD Code Arthritis - Psoriatic and Osteo/DJD Back,Hip,and Knee pain Cholesterol Headaches/Migraines Neuropathy Poor circulation Psoriasis/eczema High blood pressure Surgical History Surgery Date(Month/Year) back surgery x2 97,04 Hospitalization History Reason Date(Month/Year) [facility] [place] [facility] [place] Sinus [place] 01/07/2024 [facility]- chest pain, trouble breathing 3
--- OUTSIDE RECORDS SUMMARY | 2024-09-22 14:14 | XMS_ITS | Encounter Summary ---
Author Organization [employer] Address [address] [facility] [address] [place] [address] Care Team Providers Care Penology Professor Name Role Phone Letty Morrison MD Primary Care Provide r Reason for Visit * Reason Onset Date Comments Nurse Triage 11/03/2023 Encounter Details Date Type Department Care Team ([facility] st Contact Info) Description 11/03/2023 Telephone [facility] MEDICINE [address] [place] [address] Letty Morrison MD [address] [place] [address] Nurse Triage Social History Tobacco Use Types Packs/Day Years Used Date Smoking Tobacco: Never Smokeless Tobacco: Never Comments Unknown Sex and Gender Information Value Date Recorded Sex Assigned at Female 04/01/2022 10:14 AM EDT Legal Sex Female 10:14 AM EDT Gender Identity Female 04/01/2022 10:14 AM EDT Sexual Orientation Choose not to disclose 2021 10:14 AM EDT documented as of this encounter Miscellaneous Notes * Telephone Encounter - Bre Florez RN - 11/03/2023 9:53 AM EDT Triage call Pt reports bilateral lower extremity pain and edema. Pt reports this has been occurringfor last 2-3 months but worsened recently. Pt is able to ambulate in home and is taking tylenol andarthritis medication prescribed by MD. Pt describes increased swelling mainly in lower parts of legs by ankles with some increased redness and warmth to touch. Neg for fever. Pt also reports increased tiredness wanting to sleep alot. Pt is advised to continue with medication as prescribed, keep legs up when sitting as much as possible. Pt is offered to come to [facility] but, reports unable to come today. Pt will come to [facility] tomorrow to be seen by provider. Hours given opens 830am and closes 800pm. Ins urance is verified as active. Pt agrees with disposition and home care advised. Protocol Used: Leg Swelling and Edema (Adult) Protocol-Based Disposition: See in Office or Video Visit within 3 Days Video visit not offered Positive Triage Question: * Mild swelling of both ankles (i.e., pedal edema) AND new-onset or worsening * All higher-acuity triage questions were negative Care Advice Discussed: * Reasons To Call Back - Swelling becomes worse - Swelling becomes red or painful to the touch - Calf pain occurs and becomes constant - You become worse * Telephone Encounter - Daija Linares - 11/03/2023 9:35 AM EDT Symptoms: Leg Pain - Not From Injury, Leg Swelling - Not From Injury Outcome: Schedule an appointment to be seen within 24 hours Reason: Caller denied all higher acuity questions The caller accepted this outcome Khmer speaker documented in this encounter Plan of Treatment Upcoming Encounters Date Type Department Care Team (Late st Contact Info) Description 09/23/2024 10:00 AM EDT Office Visit [facility] MED[facility]INE [address] [place] [address] Letty Morrison MD [address] [place] [address] 11/30/2024 1:00 PM EDT Office Visit [facility] OPTOMETRY [address] [place] [address] Nadja Neri, LORENE [address] [place] [address] documented as of this encounter Visit Diagnoses Not on filedocumented in this encounter Care Teams Penology Professor Relationship Specialty Start Date End Date Letty Morrison MD [address] [place] [address] PCP - General Family Medicine 02/11/18 documented as of this encounter
--- OUTSIDE RECORDS SUMMARY | 2024-09-22 14:14 | XMS_ITS ---
Author Organization [facility] Address [address] [place] [address] Care Team Providers Care Production Painter Name Role Phone Letty Morrison Primary Care Provider Katina vailable Stephon Nieto Unavailable [phone] REASON FOR VISIT same day cx appt 07/21/24 Encounters Encounter Location Date Provider Diagnosis [facility] [address] [place] [address] 2024 Stephon Nieto Plan Of Treatment Next Appt Details Provider Name:Stephon Nieto , 10/28/2024 09:30:00 AM, [address] , [address], [place], [address], Progress Notes * Letty COLIN NDOB:1950 (74 yo F)Acc No.[id number] Patient:?Letty COLIN :1950???Age:74 Y???Sex:Female Address:[address], [place], [address] * true * Date:? Generated for Printi ng/Famariumg/eTransmitting on:?09/22/2024 02:14 PM EDT
--- OUTSIDE RECORDS SUMMARY | 2024-09-22 14:14 | XMS_ITS | Encounter Summary ---
Author Organization [email or web address] Address [address] [place] [address] [address] [place] [address] Care Team Providers Care Clam Dredge Boat Captain Name Role Phone Letty Morrison MD Primary Care Provide r Encounter Details Date Type Department Care Team (Late Contact Info) Description 03/12/2023 Abstract [facility] MEDICINE [address] [place], [place] [phone] Letty Morrison MD [address] [place], [place] [phone] Social History Tobacco Use Types Packs/Day Years Used Date Smoking Tobacco: Never Smokeless Tobacco: Never Comments Unknown Sex and Gender Information Value Date Recorded Sex Assigned at Female 04/01/2022 10:14 AM EDT Legal Sex Female 10:14 AM EDT Gender Identity Female 04/01/2022 10:14 AM EDT Sexual Orientation Choose not to disclose 2021 10:14 AM EDT documented as of this encounter Plan of Treatment Upcoming Encounters Date Type Department Care Team (Late Contact Info) Description 09/23/2024 10:00 AM EDT Office Visit [facility] MEDICINE [address] [place] [address] Letty Morrison MD [address] [place] [address] 11/30/2024 1:00 PM EDT Office Visit [facility] OPTOMETRY [address] [place], [place] [phone] Nadja Neri, OD [address] [place] [address] documented as of this encounter Procedures Procedure Name Priority Date/Time Associated Diagnosis Comments COLONOSCOPY Routine 02/20/2021 COLONOSCOPY Routine 01/02/2016 documented in this encounter Results * Colonoscopy (02/20/2021) Colonoscopy Normal Normal [facility] - 02/20/2021 Recommended 5 year follow up us Historical Provider HEALTH MAINTENANCE Final Result * Colonoscopy (01/02/2016) Colonoscopy Normal Normal [facility] - 01/02/2016 Recommended 5 year follow up us Historical Provider HEALTH MAINTENANCE Final Result documented in this encounter Visit Diagnoses Not on filedocumented in this encounter Care Teams Clam Dredge Boat Captain Relationship Specialty Start Date End Date Letty Morrison MD [address] [place] [address] PCP - General Family Medicine 02/11/18 documented as of this encounter
--- OUTSIDE RECORDS SUMMARY | 2024-09-22 14:14 | XMS_ITS | Clinical Summary ---
Author Organization [employer] Address [address] [facility] [address] [place] [address] Care Team Providers Care Board Operator Name Role Phone Letty Morrison MD Primary Care Provide r Allergies Active Allergy Reactions Criticality Noted Date Comments Aspirin 07/03/2010 Other reaction(s): GI upset Medications folic acid (Folvite) 1 MG tablet Take 1 tablet by mouth at bed time. Active methotrexate 2.5 MG tablet TAKE 4 TABLETS BY MOUTH WEEKLY 07/15/19 23 Active nabumetone (Relafen) 750 MG tablet TAKE 1 TABLET BY MOUTH TWICE A DAY WITH FOOD NEEDED FOR PAIN 10/27/19 22 Active albuterol 108 (90 Base) MCG/ACT inhalerIndicatio ns:SOB (shortness of breath) INHALE 1 PUFF BY MOUTH 4 TIMES A DAY NEEDED FOR SHORTNESS OF BREATH OR WHEEZING 18 g 1 07/25/19 23 Active prazosin (Minipress) 1 MG capsule take 1 capsule by oral route 3 times every day, morning, midday and bedtime 270 capsule 1 08/28/19 23 Active pantoprazole (ProtoNix) 40 MG EC tablet Take 40 mg by mouth in the morning. 12/10/19 23 Active amLODIPine (Norvasc) 10 MG tabletIndication s:Primary hypertension TAKE 1 TABLET BY MOUTH EVERY DAY IN THE MORNING 90 tablet 1 04/02/20 24 Active loratadine (Claritin) 10 MG tabletIndication s:Postnasal drip TAKE 1 TABLET BY MOUTH EVERY DAY IN THE MORNING 90 tablet 3 04/19/20 24 Active lisinopril 40 MG tablet TAKE 1 TABLET BY MOUTH EVERY DAY 90 tablet 1 05/13/20 24 Active fluticasone (Flonase) 50 MCG/ACT nasal sprayIndications :Postnasal drip Administer 2 sprays into each nostril Once per day. Shake gently. Before first use, prime pump. After use, clean tip and replace cap. 48 mL 3 06/25/19 25 026 Active atenolol (Tenormin) 100 MG tabletIndication s:Primary hypertension TAKE 1 TABLET BY MOUTH EVERY DAY IN THE MORNING 90 tablet 07/05/19 25 Active atorvastatin (Lipitor) 20 MG tablet TAKE 1 TABLET BY MOUTH EVERY DAY 90 tablet 09/22/19 25 Active D3-1000 25 MCG (1000 UT) capsuleIndicatio ns:Osteopenia, unspecified location TAKE 1 CAPSULE BY MOUTH EVERY DAY 90 capsule 09/22/19 25 Active atorvastatin (Lipitor) 20 MG tablet TAKE 1 TABLET BY MOUTH EVERY DAY 90 tablet 1 03/25/20 24 025 Discontinued cholecalciferol (D3-1000) 25 MCG (1000 UT) capsuleIndicatio ns:Osteopenia, unspecified location TAKE 1 CAPSULE BY MOUTH EVERY DAY 90 capsule 06/22/19 25 025 Discontinued Active Problems Problem Noted Date Diagnosed Date Chronic bilateral low back pain with bilateral s ciatica 06/25/2024 Assessment & Plan (06/25/2024 10:49 AM EST): Patient tells me her nitroglycerin nitrator operator batch referred her to physical therapy, she just started the sessions I will prescribe for now short course of tramadol to help her with her acute pain and for her to do better her physical therapy She tells me nitroglycerin nitrator operator batch plan was if PT is not helping he will order an MRI of her lower back and likely refer her to pain management for possible local injections Class 2 severe obesity with serious comorbidity and body mass index (BMI) of 37.0 to 37.9 in adult, unspecified obesity type 06/25/2024 Assessment & Plan (06/25/2024 10:50 AM EST): Counseling about lifestyle modifications done 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, bilateral legs 07/24/2022 Assessment & Plan (06/25/2024 10:51 AM EST): Continue with atorvastatin and follow-up with cardiology, labs printed and given to patient for her validation specialist to see Assessment & Plan (03/31/2024 12:33 PM EDT): Continue to f/u with specialist Daytime somnolence 05/02/2022 Hand pain 05/02/2022 Increased appetite 05/02/2022 Neck pain 05/02/2022 Psoriatic arthritis 05/02/2022 Vascular insufficiency 05/02/2022 Assessment & Plan (12/30/2023 11:28 AM EDT): She was started on lasix 20mg daily for LE edema, she is doing well on medication, she has appointment for LE US and then f/u with vascular team Fatigue 11/04/2017 Osteopenia 10/27/2014 Impaired fasting glucose 04/19/2014 Vitamin D deficiency 04/15/2013 Hyperlipidemia 08/12/2012 Osteoarthritis 03/25/2012 Degeneration of lumbosacral intervertebral disc 12/30/2011 Hypertension 12/30/2011 Assessment & Plan (06/25/2024 10:49 AM EST): Stable I advised low-sodium diet and weight reduction Will continue with same medication regimen Assessment & Plan (03/31/2024 12:33 PM EDT): Maintenance: BMP: ordered Lipid Panel: ordered ASCVD Risk: Calculate pending updated labs - Aerobic exercise to reduce BP. Initial goal of 30 min walk 3-5x/week. Increase as tolerated. - low-sodium diet (goal: <2g/day) and heart healthy diet such as DASH to reduce BP and prevent ASCVD. - Home BP monitoring 1-2 x day with goal of <140/90. - Seek immediate medical attention for chest pain, palpitations, SOB, syncope, or sudden changes in mental status. - Do not change or discontinue current prescriptions without first consulting health care provider Assessment & Plan (12/30/2023 11:27 AM EDT): - Aerobic exercise to reduce BP. Initial goal of 30 min walk 3-5x/week. Increase as tolerated. - low-sodium diet (goal: <2g/day) and heart healthy diet such as DASH to reduce BP and prevent ASCVD. - Home BP monitoring 1-2 x day with goal of <140/90. - Seek immediate medical attention for chest pain, palpitations, SOB, syncope, or sudden changes in mental status. - Do not change or discontinue current prescriptions without first consulting health care provider Gastroesophageal reflux disease 12/30/2011 Migraine 12/30/2011 Psoriasis with arthropathy 12/30/2011 Assessment & Plan (06/25/2024 10:50 AM EST): Continue to follow-up with rheumatology Assessment & Plan (12/30/2023 11:28 AM EDT): She continues to be follow closely by rheumatology Encounters Date Type Department Care Team Description 09/18/2024 Refill [facility] [address] [place] [address] Letty Morrison MD Osteopenia, unspecified location 09/17/2024 Refill [facility] [address] [place] [address] Letty Morrison MD 09/14/2024 Patient Outreach [facility] [address] [place] [address] Letty Morrison MD Pre-visit Planning ([facility] screening completed on 06/15/2024) 07/03/2024 Refill [facility] [address] [place] [address] Letty Morrison MD Primary hypertension 06/25/2024 9:45 AM EST Office Visit [facility] [address] [place] [address] Letty Morrison MD Chronic bilateral low back pain with bilateral sciatica (Primary Dx); Postnasal drip; Primary hypertension; Psoriasis with arthropathy (CMS/HCC); Class 2 severe obesity with serious comorbidity and body mass index (BMI) of 37.0 to 37.9 in adult, unspecified obesity type (CMS/HCC); Atherosclerosis of kiana artery of both lower extremities, with unspecified presence of clinical manifestation (CMS/HCC) 06/25/2024 Travel from Last 3 Months Immunizations Name Administration Dates Next Due Influenza High-dose Quadrivalent Preservative Fr ee 03/11/2022 Influenza Quadrivalent Adjuvanted 03/05/2020 Influenza injectable quadrivalent preservative f ree 07/05/2016,02/13/2015 Influenza, IIV3, injectable 03/03/2009 Influenza, Split (incl. purified surface antigen ) 02/26/2013 Influenza, trivalent, adjuvanted 02/13/2024,01/31 Kristyn SARS-CoV-2 Vaccination 08/23/2020 Pneumococcal Conjugate PCV 13 10/26/2014 Pneumococcal Conjugate PCV 20 02/10/2024 Pneumococcal Polysaccharide PPSV23 07/05/2016, RSV Bivalent 01/27/2024 TD (adult), 2 Lf tetanus tox oid, preservative free, adsorbed 08/21/2007 Tdap 10/06/2017 Zoster, Recombinant 03/16/2024,01/13/2024 Zoster, live 07/14/2014 Family History Medical History Relation Name Comments Coronary artery disease Brother Breast cancer Sister Relation Name Status Comments Brother Sister Social History Tobacco Use Types Packs/Day Years Used Date Smoking Tobacco: Never Passive Smoke Exposure: Never Smokeless Tobacco: Never Tobacco Cessation:Counseling Given: Not Answered Alcohol Use Standard Drinks/Week Comments Never 0 (1 standard drink = 0.6 oz pur e alcohol) Depression Answer Date Recorded Patient Health Questionnaire-9 Score 1 12/30/2023 Patient Health Questionnaire-9 Score 1 12/30/2023 Last PHQ-9: Questionnaire Data Not on file 0 12/30/2023 Housing Stability Answer Date Recorded What is your housing situation today? I have maria luisa garcia 12/30/[address] you li ve. Do you have problems with any of the following? None of the above 12/30/2023 Food Insecurity Answer Date Recorded Within the past 12 months, y ou worried that your food would run out before you got money to buy more: Never True 12/30/2023 Within the past 12 months,th e food you bought just didn't last and you didn't have enough money to get more: Never True Transportation Answer Date Recorded In the past 12 months, has l ack of transportation kept you from medical appts, meetings, work or from getting things needed for daily living? No 12/30/2023 Utilities Answer Date Recorded In the past 12 months, has t he electric, gas, oil or water company threatened to shut off services in your home? No 12/30/2023 Depression Answer Date Recorded Patient Health Questionnaire-2 Score 0 12/30/2023 Internet Access Answer Date Recorded Internet Access Q1 No 06/15/2024 Internet Access Q2 Not on file 06/15/2024 Comments Unknown Sex and Gender Information Value Date Recorded Sex Assigned at Female 04/01/2022 10:14 AM EDT Legal Sex Female 10:14 AM EDT Gender Identity Female 04/01/2022 10:14 AM EDT Sexual Orientation Choose not to disclose 2021 10:14 AM EDT Last Filed Vital Signs Vital Sign Reading Time Taken Comments Blood Pressure 119/72 06/25/2024 9:52 AM EST Pulse 69 06/25/2024 9:52 AM EST Temperature 36.1 ??C (97 ??F) 06/25/2024 9:52 AM EST Respiratory Rate 17 06/25/2024 9:52 AM EST Oxygen Saturation 96% 06/25/2024 9:52 AM EST Inhaled Oxygen Concentration - - Weight 99.7 kg (219 lb 12.8 oz) 06/25/2024 9:52 AM EST Height 162.6 cm (5' 4 ) 06/25/2024 9:52 AM EST Body Mass Index 37.73 06/25/2024 9:52 AM EST Plan of Treatment Upcoming Encounters Date Type Department Care Team (Late st Contact Info) Description 09/23/2024 10:00 AM EDT Office Visit [facility] [address] [place] [address] Letty Morrison MD [address] [place] [address] 11/30/2024 1:00 PM EDT Office Visit [facility] [address] [place] [address] Nadja Neri, OD [address] [place] [address] Health Maintenance Due Date Last Done Comments CT Colonography 1949 FIT DNA/Cologuard 1950 FIT 1950 FOBT 1950 Sigmoidoscopy 1950 Hepatitis C Screening 1967 COVID-19 Vaccine ( season) 2024 10/16/2021, 04/11/2021, 08/23/2020 Alcohol/Substance Use Screening 12/29/2024 12/30/2023 Depression Screening 12/29/2024 12/30/2023, 12/30/19 Diabetes: Hemoglobin A1C 12/29/2024 024, 07/24/2022, 01/11/2022, Additional history exists SDOH Screening 06/15/2025 06/15/2024 Tobacco Screening 06/25/2025 06/25/2024 Colonoscopy 02/20/2026 02/20/2021, 01/02/2016 Colorectal Cancer Screening 02/20/2026 DTaP/Tdap/Td Vaccines (2 - Td or Tdap) 10/07/2027 10/06/2017, 08/21/2007 Lipid Panel 04/27/2029 04/27/2024, 12/02, 10/26/2021, Additional history exists RSV Patients and Patients Aged 60 years or older Completed 01/27/2024 Pneumococcal Vaccine: 50+ Years Completed 02/10/2024, 07/05/2016, 10/26/2014, Additional history exists Influenza Vaccine Completed 02/13/2024, , 02/13/2021, Additional history exists Zoster Vaccines Completed 03/16/2024, 12/31, 07/14/2014 HIB Vaccines Aged Out No longer eligi ble based on patient's age to complete this topic HPV Vaccines Aged Out No longer eligi ble based on patient's age to complete this topic Hepatitis A Vaccines Aged Out No long er eligible based on patient's age to complete this topic Hepatitis B Vaccines Aged Out No long er eligible based on patient's age to complete this topic IPV Vaccines Aged Out No longer eligi ble based on patient's age to complete this topic Meningococcal Vaccine Aged Out No jessica teresa eligible based on patient's age to complete this topic RSV under 20 months Aged Out No longe r eligible based on patient's age to complete this topic Rotavirus Vaccines Aged Out No longer eligible based on patient's age to complete this topic Procedures Procedure Name Priority Date/Time Associated Diagnosis Comments LIPID PANEL, STANDARD Routine 04/27/2024 8:34 AM EST Hyperlipidemia, unspecified hyperlipidemia type HEMOGLOBIN A1C Routine 12/30/2023 10:05 AM EDT Primary hypertension HM COLONOSCOPY Routine 02/20/2021 from Last 3 Months or Most Recently Relevant to Health Maintenance Results * (ABNORMAL) Lipid Panel, Standard (04/27/2024 8:34 AM EST) Triglycerides 326(H) <150 mg/dL [facility] Comment:Desirable Triglyceri de: less than 150 mg/dLBorderline High Triglyceride 150-199 mg/dLHigh Triglyceride: 200-499 mg/dLVery High Triglyceride: greater than or equal to 5OO mg/dL Cholesterol 169 <200 mg/dL [facility] Comment:Desirable Cholestero l: less than 200 mg/dLBorderline High Cholesterol: 200-239 mg/dLHigh Cholesterol: greater than 239 mg/dL LDL Cholesterol Calculated 67 <100 mg/dL [facility] Comment:Desirable LDL: less than 100 mg/dLNear Optimal/Above Optimal LDL: 110- 129 mg/dLBorderline High LDL: 130-159 mg/dLHigh LDL: 160-189 mg/dLVery High LDL: greater than or equal to 190 mg/dL HDL Cholesterol 37(L) >40 mg/dL [facility] Comment:Desirable HDL: great er than 40 mg/dL Note: This HDL assay may give artificially low results in patients with liver disease. Blood Venous blood specimen / Unknown 04/27/2024 8:34 AM EST 04/27/2024 11:47 AM EST us Letty Pimentel MD LAB BLOOD ORDERABLES Final Result [facility] [address] [place] [phone] * (ABNORMAL) Hemoglobin A1c (12/30/2023 10:05 AM EDT) Hemoglobin A1c 6.4(H) <6.0 % [facility] Comment:Hemoglobin A1C Refer ence Range Adults: 4.8 - 6.0 % Non diabetic: < 6.0 % Goal: < 7.0 %Additional Action Suggested: > 8.0 %Note: Hemoglobin A1c results are invalid for patients with abnormal amounts of HbF. Blood transfusions may impact the HbA1c concentration in the patient sample. Estimated Average Glucose 137 mg/dL [facility] Comment:eAG = Estimated ave rage glucose which is %A1C expressed asaverage glucose, using the formula of the [id number] Glucose study (ADAG), Diabetes Care, Vol.31,#8,Dec. 2007 Blood Venous blood specimen / Unknown 12/30/2023 10:05 AM EDT 12/30/2023 11:20 AM EDT Letty Pimentel MD LAB BLOOD ORDERABLES Final Result [facility] [address] [place] [phone] * Hm Colonoscopy (02/20/2021) Colonoscopy Normal Normal Narrative Betty Denise - 02/20/2021 Recommended 5 year follow up J Carlos Provider HEALTH MAINTENANCE Final Result from Last 3 Months or Most Recently Relevant to Health Maintenance Insurance [facility] STANDARD Care Teams Board Operator Relationship Specialty Start Date End Date Letty Morrison MD [address] [place] [id number] PCP - General Family Medicine 02/11/18
--- OUTSIDE RECORDS SUMMARY | 2024-09-22 14:14 | XMS_ITS ---
Author Organization [facility] Address [address] [place] [address] Care Team Providers Care Independent Sales Representative Name Role Phone Letty Morrison Primary Care Provider Katina Stephon Galindo Unavailable [phone] Allergies Allergen (clinical drug ingredient) Drug/Non Drug Allergy documented on EMR Reaction Allergy Type Onset Date Status aspirin Aspirin cannot take, gastritis Drug Allergy Active REASON FOR VISIT At Risk Footcare, Painful Nail(s) aggrevated by shoes and causing difficulty standing/walking., Ingrown Nail Medications Medication SIG (Take, Route, Frequency, Duration) Notes Start Date End Date Status Methotrexate 2.5 MG as directed Orally Active Loratadine 10 MG 1 tablet Orally Once a day for 30 day(s) Active Symbicort 80-4.5 MCG/ACT 1 puff as neede d Inhalation every 4 hrs Active Nabumetone 750 MG as directed Orally [...] Once a day for 30 day(s) Active Lisinopril 40 MG 1 tablet Orally Once a day Active amLODIPine Besylate 10 MG 1 tablet [...] Are you an other tobacco user? No Vital Signs Height 5ft 6in in 04/19/2024 Weight 217 lbs 04/19/2024 BMI 35.02 kg/m2 04/19/2024 Procedures Procedure Date Ordered Date Performed Result Body Sit e 20505-YVXPHKK NAIL, 6 OR MORE 04/19/2024 N/A 90788-Hqntynca Plate 04/19/2024 N/A 40478-BSEY SKIN LESIONS, OVER 4 04/19/2024 N/A Encounters Encounter Location Date Provider Diagnosis [facility] [address] [address] 04/19/2024 Stephon Nieto Atherosclerosis of [place] artery of both lower extremities, with unspecified presence of clinical manifestation I70.203 ; Tinea unguium B35.1 ; Pain in right toe(s) M79.674 ; Pain in left toe(s) M79.675 and Ingrowing nail L60.0 Assessments Encounter Date Diagnosis (ICD Code) Assessment Notes Treatment Notes Treatment Clinical Notes Section Notes 04/19/2024 Atherosclerosis of [place] artery of both lower extremities, with unspecified presence of clinical manifestation (ICD-10 - I70.203) 04/19/2024 Tinea unguium (ICD-10 - B35.1) 04/19/2024 Pain in right toe(s) (ICD-10 - M79.674) 04/19/2024 Pain in left toe(s) (ICD-10 - M79.675) 04/19/2024 Ingrowing nail (ICD-10 - L60.0) Plan Of Treatment Pending Test Test Name Order Date 92942-AJULEZV NAIL, 6 OR MORE 04/19/2024 87408-Vwtuvzbf Plate 04/19/2024 79250-CQJM SKIN LESIONS, OVER 4 04/19/20 24 Next Appt Details Follow Up: prn, Reason: Provider Name:Stephon Nieto , 10/28/2024 09:30:00 AM, [address] [facility], [address], [place], [address], Procedure Notes * Category Sub-Category Detail Notes Nail Avulsion Procedure A fine sterile e levator was placed between the eponychium, nail fold, and nail plate to separate the the structures. A sterile nail splitter, and/or sterile 316 blade, was then used to longitudinally section the nail along its entire length through the eponychium to the area under the nail fold. The offending portion of nail was from the nail bed with a rolling action and then removed with a hemostat. No underlying bone was identified. There was minimal bleeding as hemostasis was achieved through the temporary use of either a digital tournaquet or the aforementioned local with epinephrine. A bacitracin sterile dressing was applied. Local wound aftercare instructions were discussed and dispensed. The patient was informed of both conservative and future surgical procedures to prevent recurrence. Tylenol or Motrin was recommended for pain or discomfort (58398) , CIRCULATION: Pt was advised as to the risk of delayed or nonhealing due to circulation. Pt is to call the office with any questions, concerns, or complications Anesthesia was accomplished TOP ICALLY with Lidocaine Hydrochloride Jelly 2 percent Location Medial nail border , TA Debride Nail 6-10 Nail debridement Performance o f this nail treatment by a nonprofessional would put this patients foot and overall health at risk. Therefore, debridement to affected nail(s), as described in exam, was performed extensively to reduce/remove overall nail length, girth, thickness, subungual debris, and necrotic tissue, by manual and/or electrical means through the use of a nail nipper and/or dremel-type grinder set up operator centerless, to a more viable healthy nail plate or bed tissue 6-10. Silver nitrate used for any petechial bleeding as necessary. Definitive antifungal treatment options have been reviewed and discussed with the patient. The patient chooses, no pharmaceutical tx - 87151 Keratoma Treatment Parring or Cutting o f Benign Hyperkeratotic Lesion(s) (-57) More than 4 Lesions - The Benign hyperkeratotic lesions, as described in exam, were pared, and/or cut utilizing a sterile 15 blade, tissue nippers, and/or dremel - 99521, Q8 Progress Notes * Letty COLIN NDOB:1950 (73 yo F)Acc No.[id number]:04/19/2024 Progress Note Patient:?Letty COLIN Provider:?Stephon Nieto DPM :1950???Age:73 Y???Sex:Female D ate:04/19/2024 Address:[address] [place], [place] [id number] Pcp:Letty Pimentel Subjective: * Chief Complaints: * ???At Risk FootcarePainful N ail(s) aggrevated by shoes and causing difficulty standing/walking.Ingrown Nail * HPI: ???At Risk footcare:?Pt States Last PCP Visit:?Date?03/29/2024 * ROS:?General/Constitutional:?Nausea?denies.?Vomiting?denies.?Hunger Thirst?denies.?Loss appetite?denies.?Chills?denies.?Fatigue?denies.?Fever?denies.?Night Sweats?denies.?Unexplained weight loss?denies.?Unexplained weight gain?denies.?HEENTM:?Dentures?denies.?Dizziness?denies.?Glasses/contacts?admits.?Retinopathy?de nies.?Blurred/double vision?denies.?TMJ?denies.?Discharge/drainage?denies.?Implants?denies.?Sore throat?denies.?Dental implants?denies.?Hard of hearing ?denies.?Difficulty chewing/swallowing/speaking?denies.?Nose bleeds?denies.?Sore mouth?denies.?Respiratory:?On Oxygen?denies.?Pneumonia/pleurisy?denies.?Bronchitis?denies.?Emphysema?denies.?C oughing?denies.?Cough blood?denies.?Shortness of breath?denies.?Wheezing?denies.?Cardiovascular:?Pacemaker?denies.?MVP?denies.?WPW?denies.?CHF?denies.?Heart attack?denies.?Septal defect?denies.?Rapid beat?denies.?Chest pain ?denies.?Atrial Fib.?denies.?Murmur/Palpitations?denies.?Gastrointestinal:?Hemorrhoids?denies.?Stomach/Abdominal pain?denies.?Dark blood stool?denies.?Irritable bowel ?denies.?Constipation?denies.?Diarrhea?denies.?Hematology:?Swelling?denies.?Clots?denies.?Varicose Veins?denies.?Bruising?denies.?Bleeding problem?denies.?Genitourinary:?Blood urine?denies.?Frequent/Painfu/urination/bladder control?denies.?Kidney stones?denies.?Infection (UTI)?denies.?Nephropathy?denies.?sex trans dis (STD)?denies.?Prostate?denies.?Musculoskeletal:?Hammertoes?denies.?Bunions?admits.?Back Pain?denies.?Muscle Cramps/ Resting?denies.?Muscle cramps / walking?denies.?Generalized aches and pains?denies.?Weakness?denies.?Integ.:?Erickson?denies.?Scars?denies.?Corns/calluses?admits.?Ingrown nails?admits.?Painful nails?admits.?Open Sores?denies.?Rashes?denies.?Neurologic:?Difficulty sleeping?denies.?Brain disorder?denies.?Numbness?denies.?Balance trouble?denies.?Confusion?denies.?Fainting/blackouts?denies.?Tingling?denies.?Tr emors?denies.? * Medical History:? * Surgical History:?back surge ry x2 97,04 * Hospitalization/Major Diagno stic Procedure:?[facility]- chest pain, trouble breathing 07/2022[facility] - Sinus infection 01/07/2024 * Family History:?Mother: dece ased, foot problems, poor circulation, diagnosed with Diabetic - NIDDM, Unspecified essential hypertension, Other specified conditions influencing health status, Family history of arthritis.?Father: , diagnosed with Diabetic - NIDDM.? * Social History:?Tobacco Use:?Tobacco Use/Smoking?Are you a:?nonsmoker ?Additional Findings: Tobacco Non-User?Current non-smoker ?Tobacco use other than smoking?Are you an other tobacco user??No ???Drugs/Alcohol:?Drugs?Have you used drugs other than those for medical reasons in the past 12 months??No ?Alcohol Screen?Did you have a drink containing alcohol in the past year??No ?Points?0 ?Interpretation?Negative ???Miscellaneous:?Caffeine: yes, frequency:, 1-2 cups per day. ?Children: yes, 6. ?Exercise: yes. ?Marital status: single. ?Occupation: Retired. * Medications:?TakingamLODIPin e Besylate 10 MG Tablet 1 tablet Orally Once a day Atenolol 100 MG Tablet as directed Orally Once a day Atorvastatin Calcium 20 MG Tablet 1 tablet Orally Once a day Folic Acid 1 MG Tablet 1 tablet Orally Once a day Fluticasone Propionate 50 MCG/ACT Suspension 1 spray in each nostril Nasally Once a day Lisinopril 40 MG Tablet 1 tablet Orally Once a day Loratadine 10 MG Tablet 1 tablet Orally Once a day Methotrexate 2.5 MG Tablet as directed Orally Nabumetone 750 MG Tablet as directed Orally Twice a day Pantoprazole Sodium 40 MG Tablet Delayed Release 1 tablet Orally Once a day Symbicort 80-4.5 MCG/ACT Aerosol 1 puff as needed Inhalation every 4 hrs Vitamin D3 25 MCG (1000 UT) Capsule 1 capsule Orally Once a day Medication List reviewed and reconciled with the patientTaking amLODIPine Besylate 10 MG Tablet 1 tablet Orally Once a day Taking Atenolol 100 MG Tablet as directed Orally Once a day Taking Atorvastatin Calcium 20 MG Tablet 1 tablet Orally Once a day Taking Folic Acid 1 MG Tablet 1 tablet Orally Once a day Taking Fluticasone Propionate 50 MCG/ACT Suspension 1 spray in each nostril Nasally Once a day Taking Lisinopril 40 MG Tablet 1 tablet Orally Once a day Taking Loratadine 10 MG Tablet 1 tablet Orally Once a day Taking Methotrexate 2.5 MG Tablet as directed Orally Taking Nabumetone 750 MG Tablet as directed Orally Twice a day Taking Pantoprazole Sodium 40 MG Tablet Delayed Release 1 tablet Orally Once a day Taking Symbicort 80-4.5 MCG/ACT Aerosol 1 puff as needed Inhalation every 4 hrs Taking Vitamin D3 25 MCG (1000 UT) Capsule 1 capsule Orally Once a day Medication List reviewed and reconciled with the patient * Allergies:?Aspirin: cannot t nena, gastritisyes[Allergies Verified] Objective: * Vitals:?Ht:5ft 6in, Wt:217, BMI:35.02, Shoe size:10, Ht-cm: 167.64 cm, Wt-k.43 kg. * Examination: ???Vascular: ?DP PULSES(B):? 1/4, B/L.?PT PULSES(B):? 0/4, B/L.?CAPILLARY FILL TIME:? delayed, all digits, B/L.?TROPHIC CONDITION-TEXTURE/ELASTICITY/TURGOR/HAIR GROWTH(B):? decreased,?with sparse to absent hair growth, B/L.?TEMPERTURE GRADIENT(C):? decreased, cool to cool, proximal to distal, B/L.?PIGMENTATION:? brawny, B/L.?EDEMA(C):? 2/4, non-pitting, without aching pain, B/L, Ankle(s).?CLAUDICATION(C):?denies, B/L.?REST PAIN:?denies, B/L.?Nails: ?NAILS are:? Elongated, overgrown, dystrophic, lytic, greater than 3mm thick, discolored and friable with crumbly malodorous subungual debris, with pain on palpation, TA, T1, T2, T4, T5, T6, T9,remaining nails are elongated, overgrown, dystrophic.?Dermatologic: ?SKIN FINDINGS:? Skin exam reveals Keratotic lesion(s) located at, SUB MTH (s), 2, B/L , SUB MTH (s), 5, B/L ,Plantar, Heel(s), B/L .?Ingrown Nail: ?INSPECTION:?Reveals nail incurvation, pain on palpation, groove hypertrophy, groove ischemia , Medial nail border , TA.?General Examination: ?FOOT EXAM:?Pedal pulse taking performed:?No changes to the above exam findings since last visit??? Assessment: * Assessment: 1.?Tinea unguium - B35.1???2 .?Atherosclerosis of [place] artery of both lower extremities, with unspecified presence of clinical manifestation - I70.203 (Primary)???3.?Pain in right toe(s) - M79.674???4.?Pain in left toe(s) - M79.675 ??5.?Ingrowing nail - L60.0???Specify :Medial nail border , TA??? Plan: * Treatment: 2.?Tinea unguium?Procedure: 11680-VQLXQZX NAIL, 6 OR MORE 3.?Ingrowing nail?Procedure: 44803-Saqghzjt Plate * Procedures:?Debride Nail 6-10:?Nail debridement?Performance of this nail treatment by a nonprofessional would put this patients foot and overall health at risk. Therefore, debridement to affected nail(s), as described in exam, was performed extensively to reduce/remove overall nail length, girth, thickness, subungual debris, and necrotic tissue, by manual and/or electrical means through the use of a nail nipper and/or dremel-type grinder set up operator centerless, to a more viable healthy nail plate or bed tissue 6-10. Silver nitrate used for any petechial bleeding as necessary. Definitive antifungal treatment options have been reviewed and discussed with the patient. The patient chooses, no pharmaceutical tx - 05040.?Keratoma Treatment:?Parring or Cutting of Benign Hyperkeratotic Lesion(s)?(-57) More than 4 Lesions - The Benign hyperkeratotic lesions, as described in exam, were pared, and/or cut utilizing a sterile 15 blade, tissue nippers, and/or dremel - 19974, Q8.?Nail Avulsion:?Location?Medial nail border?,?TA.?Anesthesia?was accomplished TOPICALLY with Lidocaine Hydrochloride Jelly 2 percent.?Procedure?A fine sterile elevator was placed between the eponychium, nail fold, and nail plate to separate the the structures. A sterile nail splitter, and/or sterile 316 blade, was then used to longitudinally section the nail along its entire length through the eponychium to the area under the nail fold. The offending portion of nail was from the nail bed with a rolling action and then removed with a hemostat. No underlying bone was identified. There was minimal bleeding as hemostasis was achieved through the temporary use of either a digital tournaquet or the aforementioned local with epinephrine. A bacitracin sterile dressing was applied. Local wound aftercare instructions were discussed and dispensed. The patient was informed of both conservative and future surgical procedures to prevent recurrence. Tylenol or Motrin was recommended for pain or discomfort (97817) , CIRCULATION: Pt was advised as to the risk of delayed or nonhealing due to circulation. Pt is to call the office with any questions, concerns, or complications.? * Procedure Codes:?05073 DEBRI DE NAIL, 6 OR MORE, Modifiers: XS 81914 Avulsion Plate, Modifiers: XS , [id number] TRIM SKIN LESIONS, OVER 4, Modifiers: XS , Q8 * Follow Up:?prn * Images: * Sign off status: Completed true * Provider:Julee Nieto DPM Date:?2023 Generated for Chanel marks/Felice/eTransmitting on:?09/22/2024 02:04 PM EDT History and Physical Notes * HPI (History of Present Illness) Category Sub-Category Detail Notes Category Not es At Risk footcare Pt States Last PCP Visit: Date: Examination Category Sub-Category Detail Notes Category Not es Ingrown Nail INSPECTION: Reveals nail inc urvation, pain on palpation, groove hypertrophy, groove ischemia , Medial nail border , TA Dermatologic SKIN FINDINGS: Skin exam reveal s Keratotic lesion(s) located at, SUB MTH (s), 2, B/L , SUB MTH (s), 5, B/L ,Plantar, Heel(s), B/L General Examination FOOT EXAM: Pedal pulse taking performed:: No changes to the above exam findings since last visit Vascular DP PULSES (B): 1/4, B/L PT PULSES (B): 0/4, B/L CAPILLARY FILL TIME: delayed, all digits , B/L TEMPERTURE GRADIENT (C): decreased, cool to cool, proximal to distal, B/L TROPHIC CONDITION-TEXTURE/ELASTICITY/TURGOR/HAIR GROWTH (B): decreased, with sparse to absent hair gr owth, B/L EDEMA (C): 2/4, non-pitting, wi thout aching pain, B/L, Ankle(s) CLAUDICATION (C): denies, B/L REST PAIN: denies, B/L PIGMENTATION: brawny, B/L Nails NAILS are: Elongated, overg rown, dystrophic, lytic, greater than 3mm thick, discolored and friable with crumbly malodorous subungual debris, with pain on palpation, TA, T1, T2, T4, T5, T6, T9,remaining nails are elongated, overgrown, dystrophic
--- OUTSIDE RECORDS SUMMARY | 2024-09-22 14:14 | XMS_ITS | Encounter Summary ---
Author Organization [facility] [facility] Address [address] [facility] [address] [place] [address] Care Team Providers Care Sole Stainer Name Role Phone Letty Morrison MD Primary Care Provide r Reason for Visit * Reason Comments Med Refill Encounter Details Date Type Department Care Team ([facility] st Contact Info) Description 09/18/2024 Refill [facility] [address] [place], [place] [phone] Letty Morrison MD [address] [place], [place] [phone] Osteopenia, unspecified location Social History Tobacco Use Types Packs/Day Years Used Date Smoking Tobacco: Never Passive Smoke Exposure: Never Smokeless Tobacco: Never Alcohol Use Standard Drinks/Week Comments Never 0 [...] Description 09/23/2024 10:00 AM EDT Office Visit [facility] [address] [place] [address] Letty Morrison MD [address] [place] [address] 11/30/2024 1:00 PM EDT Office Visit [facility] [address] [place] [address] Daron, Nadja, OD [address] [place] [address] documented as of this encounter Visit Diagnoses Diagnosis Osteopenia, unspecified location documented in this encounter Additional Health Concerns Assessment Noted Time PHQ-9 Depression Total Score: 1 12/30/19 24 9:38 AM EDT documented as of this encounter Care Teams Sole Stainer Relationship Specialty Start Date End Date Letty Morrison MD [address] [place] [address] PCP - General Family Medicine 02/11/18 documented as of this encounter
--- OUTSIDE RECORDS SUMMARY | 2024-09-22 14:14 | XMS_ITS | Encounter Summary ---
Author Organization [employer] Address [address] [facility] [address] [place] [address] Care Team Providers Care Valet Attendant Name Role Phone Letty Morrison MD Primary Care Provide r Reason for Visit * Reason Comments Med Refill Encounter Details Date Type Department Care Team ([facility] st Contact Info) Description 09/17/2024 Refill [facility] [address] [place], [place] [phone] Letty Morrison MD [address] [place], [place] [phone] Social History Tobacco Use Types Packs/Day Years [...] housing situation today? I have maria luisa sing 12/30/[address] you li [...] Description 09/23/2024 10:00 AM EDT Office Visit [facility] [address] [place] [address] Letty Morrison MD [address] [place] [address] 11/30/2024 1:00 PM EDT Office Visit [facility] [address] [place] [address] Daron, Nadja, OD [address] [place] [address] documented as of this encounter Visit Diagnoses Not on filedocumented in this encounter Additional Health Concerns Assessment Noted Time PHQ-9 Depression Total Score: 1 12/30/19 24 9:38 AM EDT documented as of this encounter Care Teams Valet Attendant Relationship Specialty Start Date End Date Letty Morrison MD [address] [place] [address] PCP - General Family Medicine 02/11/18 documented as of this encounter
--- OUTSIDE RECORDS SUMMARY | 2024-09-22 14:14 | XMS_ITS | Encounter Summary ---
Author Organization [employer] Address [address] [place] [address] [address] [place] [address] Care Team Providers Care Tyre Retreader Name Role Phone Letty Morrison MD Primary Care Provide r Reason for Visit * Reason Comments Med Refill Encounter Details Date Type Department Care Team (Late st Contact Info) Description 09/02/2023 Refill [facility] MED[facility]INE [address] [place] [address] [phone] Letty Morrison MD [address] [place], [place] [phone] Gastro-esophageal reflux disease without esophagitis; Benign neoplasm of colon, unspecified Social History Tobacco Use Types Packs/Day Years [...] Description 09/23/2024 10:00 AM EDT Office Visit [facility]INE [address] [place], [place] [phone] Letty Morrison MD [address] [place] [phone] 11/30/2024 1:00 PM EDT Office Visit [facility] OPTOMETRY [address] [place], [place] [phone] Nadja Neri, OD [address] [place] [address] documented as of this encounter Visit Diagnoses Diagnosis Gastro-esophageal reflux disease without esophagitis Benign neoplasm of colon, unspecified documented in this encounter Care Teams Tyre Retreader Relationship Specialty Start Date End Date Letty Morrison MD [address] [place] [address] PCP - General Family Medicine 02/11/18 documented as of this encounter
--- OUTSIDE RECORDS SUMMARY | 2024-09-22 14:14 | XMS_ITS | Encounter Summary ---
Author Organization [employer] Address [address] [place] [address] [address] [place] [address] Care Team Providers Care Director Call Center Sales Name Role Phone Letty Morrison MD Primary Care Provide r Reason for Visit * Reason Comments Med Refill Encounter Details Date Type Department Care Team (Late st Contact Info) Description 09/03/2022 Refill [facility] [address] [place], [place] [phone] Amish Aquino MD [address] [place], [place] [phone] Social History Tobacco Use Types Packs/Day Years [...] Description 09/23/2024 10:00 AM EDT Office Visit [facility] [address] [place], [place] [phone] Letty Morrison MD [address] [place], [place] [phone] 11/30/2024 1:00 PM EDT Office Visit [facility] OPT[facility] [address] [place], [place] [phone] Nadja Neri, OD [address] [place] [address] documented as of this encounter Visit Diagnoses Not on filedocumented in this encounter Care Teams Director Call Center Sales Relationship Specialty Start Date End Date Letty Morrison MD [address] [place] [address] PCP - General Family Medicine 02/11/18 documented as of this encounter
--- OUTSIDE RECORDS SUMMARY | 2024-09-22 14:14 | XMS_ITS | Encounter Summary ---
Author Organization [facility] Address [address] [place] [address] [address] [place] [address] Care Team Providers Care Rn Mental Health Name Role Phone Letty Morrison MD Primary Care Provide r Reason for Visit * Reason Comments Med Refill Encounter Details Date Type Department Care Team (Late st Contact Info) Description 12/08/2022 Refill [facility] [address] [place], [place] [phone] Amish Aquino MD [address] [place], [place] [phone] Social History Tobacco Use Types Packs/Day Years [...] Description 09/23/2024 10:00 AM EDT Office Visit [facility] [address] [place], [place] [phone] Letty Morrison MD [address] [place], [place] [phone] 11/30/2024 1:00 PM EDT Office Visit [facility] OPTOMETRY [address] [place], [place] [phone] Nadja Neri, OD [address] [place] [address] documented as of this encounter Visit Diagnoses Not on filedocumented in this encounter Care Teams Rn Mental Health Relationship Specialty Start Date End Date Letty Morrison MD [address] [place] [address] PCP - General Family Medicine 02/11/18 documented as of this encounter
--- OUTSIDE RECORDS SUMMARY | 2024-09-22 14:14 | XMS_ITS ---
Author Organization [facility] Address [address] [place] [address] Care Team Providers Care Rate Inserter Name Role Phone Letty Morrison Primary Care Provider Katina Stephon Galindo Unavailable [phone] Medications Medication SIG (Take, Route, Frequency, Duration) [...] Once a day for 30 day(s) Active Encounters Encounter Location Date Provider [facility] [address] [place] [address] 2024 Stephon Nieto Plan Of Treatment Next Appt Details Provider Name:Stephon Nieto , 10/28/2024 09:30:00 AM, [address] [facility], [address], [place], [address], Progress Notes * Letty COLIN NDOB:1950 (74 yo F)Acc No.[id number]:2024 Progress Note Patient:?Letty COLIN Provider:?Stephon Nieto DPM :1950???Age:74 Y???Sex:Female D ate:2024 Address:[address] [place], [place] [phone] Pcp:Letty Pimentel Subjective: * Chief Complaints: * ??? * HPI: ???At Risk footcare:?Pt States Last PCP Visit:?Date?03/29/2024 * Medical History:? * Medications:?Taking amLODIPi ne Besylate 10 MG Tablet 1 tablet Orally [...] capsule Orally Once a day Objective: * Vitals:? Assessment: Plan: * Treatment: * Images: * The named appointment provid er may or may not be the originator of this progress note, and it is not deemed complete until electronically signed by the appointment provider. Sign off status: Pending * Provider:?Stephon Nieto DPM Date:?2024 Generated for Chanel marks/Felice/Gaylesmitting on:?09/22/2024 02:04 PM EDT History and Physical Notes * HPI (History of Present Illness) Category Sub-Category Detail Notes Category Not es At Risk footcare Pt States Last PCP Visit: Date: 4
== END 2024-09-22 16:41 | disposition home or self-care (01) ==
LOC: HO.HGI 11:47
PROVIDERS: PCP Internal Medicine; Visit Provider Nurse Practitioner
DX: K21.9 Gastro-esophageal reflux disease without esophagitis (principal)
CPT/HCPCS: 99213

== ENCOUNTER → 2024-09-22 11:47 | Outpatient (BNVA) | payer OTHER, SELFPAY | PROVIDERS: PCP Internal Medicine; Visit Provider Nurse Practitioner | DX: K21.9 Gastro-esophageal reflux disease without esophagitis (principal) | CPT/HCPCS: 99212 ==

== ENCOUNTER → 2024-10-10 20:30 | Outpatient (REF) | payer OTHER, SELFPAY | LOC: HO.SL 20:30 | PROVIDERS: PCP Internal Medicine; Visit Provider Internal Medicine | DX: Z13.89 Encounter for screening for other disorder (principal) ==

== ENCOUNTER → 2024-10-27 10:56 | Outpatient (REF) | payer OTHER, SELFPAY ==
--- NOTE | 2024-10-27 10:59 | CA_ITS ---
Transthoracic Echocardiogram Patient (Last, First, Middle): Letty Valles, Gender: Female Date of : 1950 Age: 74 Procedure Date: 10/27/2024 Procedure Type: Transthoracic Echocardiogram Location: OP Height: 167.64 cm Weight: 97.98 kg BSA: 2.07 m2 Heart Rate: bpm BP: 99 / 54 mmHg Sourcing Specialist: NARESH Referring MD: Letty Pimentel MD Sailing Instructor: Wesley Guo MD Symptoms: SOB R06.02 Study Quality: Fair ECG Rhythm: Sinus Conclusions: - 1. Normal LV ejection fraction 55-60% with impaired relaxation filling pattern and suggestive of increased filling pressures 2. Trivial aortic regurgitation 3. Upper limits of normal ascending aortic size 4. Normal RV systolic pressure Findings Left Ventricle Normal left ventricular size, thickness, and systolic function. The visually estimated ejection fraction is between 55-60%. Regional wall motion abnormalities can not be excluded due to suboptimal endocardial definition. Spectral Doppler is indicative of an impaired relaxation filling pattern. Elevated filling pressures. E/E prime ratio is >15, consistent with elevated filling pressures. Right Ventricle The right ventricle was not well visualized. Atria The left atrium is likely dilated. Interatrial shunt cannot be excluded. The right atrium was not well visualized. Aortic Valve The aortic valve was not well visualized. There is no aortic valve stenosis. There is trace (trivial) aortic valve regurgitation. Mitral Valve The mitral valve was not well visualized. There is trace mitral valve regurgitation. There is no mitral valve stenosis. Pulmonic Valve The pulmonic valve was not well visualized. Tricuspid Valve The tricuspid valve was not well visualized. There is trace tricuspid valve regurgitation. The right ventricular systolic pressure is normal. The right ventricular systolic pressure is 15 mmHg. Normal right atrial pressure. Great Vessels The aorta was not well visualized. The pulmonary artery was not well visualized. Venous The inferior vena cava is normal in size and collapses greater than 50% with inspiration. Pericardium/Pleural The pericardium was not well visualized. Prior Study Comparison no previous study in the last 5 years for comparison Measurements 2D Linear Measurements IVSd: 1.17 0.6-0.9/0.6-1.0 cm LVIDd: 4.80 3.9-5.3/4.2-5.9 cm LVIDd Index: 2.32 2.4-3.2/2.2-3.1 cm/m2 LVIDs: 3.19 2.0-3.6 cm LVPWd: 0.74 0.7-1.1 cm LA Diam: 4.20 2.7-3.8/3.0-4.0 cm LAIDs Index: 2.03 1.5-2.3 cm/m2 LV Mass: 198.90 67-162/88-224 g LV Mass Index: 96.09 43-95/49-115 g/m2 LVOT Diam: 2.00 3.0+(-)1.3 cm 2D Systolic Function EF 4C: 57.10 >55% EF 2C: 57.40 >55% EF BiP: 58.10 >55% Mitral Valve MV Pk E: 0.46 MV PK A: 0.83 MV Decel Time: 258.00 E/A: 0.60 E'Lateral: 7.72 E'Medial: 2.94 E/E' Med: 15.70 E/E' Lat: 6.00 PHT: 76.00 MVA PHT: 2.89 Decel [place]: 1.79 Aortic Valve AoV Pk [place]: 1.65 AoV Mn [place]: 1.21 AoV VTI: 0.39 AoV Pk Grad: 11.00 Aov Mn Grad: 6.00 YOSEPH Cont.VTI: 1.94 LVOT LVOT Pk [place]: 0.98 LVOT Mn [place]: 0.72 LVOT VTI: 0.24 LVOT Pk Grad: 4.00 LVOT Mn Grad: 2.00 LVOT Diam: 2.00 LVOT Area: 3.14 Diastolic Function MV Pk E: 0.46 MV Pk A: 0.83 E/A: 0.60 E'Medial: 2.94 E/E' Med: 15.70 E' Laterial: 7.72 E/E' Lat: 6.00 Right Ventricle TAPSE (mm): 23.00 Tricuspid Valve TR Pk Francisco: 1.75 TR Pk Grad: 12.00 RA Press: 3.00 RVSP: 15.00 Great Vessels Aorta Sinus of Valsalva: 3.01 2.0-3.5 cm Ao Asc: 3.50 2.1-3.4 cm Updated in Other Vendor System with Status of Final Wesley Guo MD electronically signed on 10/28/2024 12:14:34 PM with status of Final
--- OUTSIDE RECORDS SUMMARY | 2024-10-27 12:00 | XMS_ITS | Clinical Summary ---
Author Organization [employer] Address [address] [place] [address] [address] [place] [address] Care Team Providers Care Sludge Filtration Attendant Name Role Phone Letty Morrison MD [...] mouth in the morning. 12/10/19 23 Active loratadine (Claritin) 10 MG tabletIndication s:Postnasal [...] 48 mL 3 06/25/19 25 026 Active atorvastatin (Lipitor) 20 MG tablet TAKE 1 TABLET BY MOUTH EVERY DAY 90 tablet 09/22/19 25 Active D3-1000 25 MCG (1000 UT) capsuleIndicatio ns:Osteopenia, unspecified location TAKE 1 CAPSULE BY MOUTH EVERY DAY 90 capsule 09/22/19 25 Active amLODIPine (Norvasc) 10 MG tabletIndication s:Primary hypertension TAKE 1 TABLET BY MOUTH EVERY DAY IN THE MORNING 90 tablet 1 09/28/19 25 Active atenolol (Tenormin) 100 MG tabletIndication s:Primary hypertension TAKE 1 TABLET BY MOUTH EVERY DAY IN THE MORNING 90 tablet 1 10/02/19 25 Active atenolol (Tenormin) 100 MG tabletIndication s:Primary hypertension TAKE 1 TABLET BY MOUTH EVERY DAY IN THE MORNING 90 tablet 07/05/19 25 025 Discontinued Active Problems Problem Noted Date Diagnosed Date SOB (shortness of breath) on exertion 09/23/2024 Assessment & Plan (09/23/2024 1:12 PM EDT): Denied that her last echocardiogram was in 2021 I will repeat an echocardiogram Advised to follow-up with cardiology and pulmonology Hypersomnia 09/23/2024 Assessment & Plan (09/23/2024 1:11 PM EDT): I will order sleep studies for patient, I will contact patient with results Chronic bilateral low back pain with bilateral s ciatica 06/25/2024 Assessment & Plan (06/25/2024 10:49 AM EST): Patient tells me her wood stock blank handler referred her to physical therapy, she just started the sessions I will prescribe for now short course of tramadol to help her with her acute pain and for her to do better her physical therapy She tells me wood stock blank handler plan was if PT is not helping he will order an MRI of her lower back and likely refer her to pain management for possible local injections Class 2 severe obesity with serious comorbidity and body mass index (BMI) of 37.0 to 37.9 in adult, unspecified obesity type 06/25/2024 Assessment & Plan (09/23/2024 1:12 PM EDT): Extensive counseling about health with diet and exercise done today Assessment & Plan (06/25/2024 10:50 AM EST): Counseling about lifestyle modifications done 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, bilateral legs 07/24/2022 Assessment & Plan (06/25/2024 10:51 AM EST): Continue with atorvastatin and follow-up with cardiology, labs printed and given to patient for her director of physiotherapy services to see Assessment & Plan (03/31/2024 12:33 [...] Encounters Date Type Department Care Team Description 10/01/2024 Refill [facility] [place] [address] Roxanna Garcia MD Primary hypertension 09/26/2024 Refill [facility] 230 [facility] [place] [address] Letty Morrison MD Primary hypertension 09/23/2024 10:00 AM EDT Office Visit [facility] [address] [facility] [place] [address] Letty Morrison MD SOB (shortness of breath) on exertion (Primary Dx); Hypersomnia; Class 2 severe obesity with serious comorbidity and body mass index (BMI) of 37.0 to 37.9 in adult, unspecified obesity type ([facility]) 09/23/2024 Travel 09/22/2024 Telephone [facility] [address] [place] [address] Letty Morrison MD Chart Prep 09/18/2024 Refill [facility] [address] [place] [address] Letty Morrison MD Osteopenia, unspecified location 09/17/2024 Refill [facility] [address] [place] [address] Letty Morrison MD 09/14/2024 Patient Outreach [facility] [address] [place] [address] Letty Morrison MD Pre-visit Planning ([facility] screening completed on 06/15/2024) from Last 3 Months Immunizations Immunization Administration Dates Next Due Influenza High-dose Quadrivalent [...] Sign Reading Time Taken Comments Blood Pressure 117/71 09/23/2024 9:54 AM EDT Pulse 78 09/23/2024 9:54 AM EDT Temperature 36.1 ??C (97 ??F) 06/25/2024 9:52 AM EST Respiratory Rate 15 09/23/2024 9:54 AM EDT Oxygen Saturation 96% 09/23/2024 9:54 AM EDT Inhaled Oxygen Concentration - - Weight 99.2 kg (218 lb 9.6 oz) 09/23/2024 9:54 A M EDT Height 162.6 cm (5' 4 ) 09/23/2024 9:54 AM EDT Body Mass Index 37.52 09/23/2024 9:54 AM EDT Plan of Treatment Upcoming Encounters Date Type Department Care Team (Late st Contact Info) Description 11/30/2024 1:00 PM EDT Office Visit [facility] [address] [place] [address] Daron, Nadja, OD [address] [place] [address] 12/23/2024 11:00 AM EDT Office Visit [facility] [address] [place] [address] Letty Morrison MD [address] [place] [address] Health Maintenance Due Date Last Done Comments CT Colonography 1950 FIT DNA/Cologuard 1950 FIT 1950 FOBT 1950 Sigmoidoscopy 1950 Hepatitis C Screening 1968 COVID-19 Vaccine ( season) 2024 10/16/2021, 04/11/2021, 08/23/2020 Alcohol/Substance Use Screening 12/29/2024 12/30/2023 Depression Screening 12/29/2024 12/30/2023, 12/30/19 Diabetes: Hemoglobin A1C 12/29/2024 024, 07/24/2022, 01/11/2022, Additional history exists SDOH Screening 06/15/2025 06/15/2024 Tobacco Screening 09/23/2025 09/23/2024 Colonoscopy 02/20/2026 02/20/2021, 01/02/2016 Colorectal Cancer Screening [...] patient's age to complete this topic Meningococcal B Vaccine Aged Out No l onger eligible based on patient's age to complete [...] 8:34 AM EST) Triglycerides 326(H) <150 mg/dL [facility] Comment:Desirable Triglyceri de: less than 150 mg/dLBorderline High Triglyceride 150-199 mg/dLHigh Triglyceride: 200-499 mg/dLVery High Triglyceride: greater than or equal to 5OO mg/dL Cholesterol 169 <200 mg/dL [facility] Comment:Desirable Cholestero l: less than 200 mg/dLBorderline High Cholesterol: 200-239 mg/dLHigh Cholesterol: greater than 239 mg/dL LDL Cholesterol Calculated 67 <100 mg/dL [facility] Comment:Desirable LDL: less than 100 mg/dLNear Optimal/Above Optimal LDL: 110- 129 mg/dLBorderline High LDL: 130-159 mg/dLHigh LDL: 160-189 mg/dLVery High LDL: greater than or equal to 190 mg/dL HDL Cholesterol 37(L) >40 mg/dL [facility] Comment:Desirable HDL: great er than 40 mg/dL Note: This HDL assay may give artificially low results in patients with liver disease. Blood Venous blood specimen / Unknown 04/27/2024 8:34 AM EST 04/27/2024 11:47 AM EST Letty Pimentel MD LAB BLOOD ORDERABLES Final Result Performing Organization Address [facility] Co de Phone Number [facility] [address] [place] [phone] * (ABNORMAL) Hemoglobin A1c (12/30/2023 10:05 AM EDT) Hemoglobin A1c 6.4(H) <6.0 % [facility] Comment:Hemoglobin A1C Refer ence Range Adults: 4.8 - 6.0 % Non diabetic: < 6.0 % Goal: < 7.0 %Additional Action Suggested: > 8.0 %Note: Hemoglobin A1c results are invalid for patients with abnormal amounts of HbF. Blood transfusions may impact the HbA1c concentration in the patient sample. Estimated Average Glucose 137 mg/dL [facility] Comment:eAG = Estimated ave rage glucose which is %A1C expressed asaverage glucose, using the formula of the [id number]-[id number] Glucose study (ADAG), Diabetes Care, Vol.31,#8,Dec. 2007 Blood Venous blood specimen / Unknown 12/30/2023 10:05 AM EDT 12/30/2023 11:20 AM EDT Letty Pimentel MD LAB BLOOD ORDERABLES Final Result Performing Organization Address [facility] Co de Phone Number [facility] [address] [place] [phone] * Hm Colonoscopy (02/20/2021) Colonoscopy Normal Normal Narrative Betty Denise - 02/20/2021 Recommended 5 year follow up Historical Provider HEALTH MAINTENANCE Final Result from Last 3 Months or Most Recently Relevant to Health Maintenance Insurance [facility] DUAL COMPLETE [facility] STANDARD Care Teams Sludge Filtration Attendant Relationship Specialty Start Date End Date Letty Morrison MD [address] [place] [phone] PCP - General Family Medicine 02/11/18
== END ==
LOC: HO.CARD 10:56
PROVIDERS: PCP Internal Medicine; Visit Provider Internal Medicine
DX: R06.02 Shortness of breath (principal)
CPT/HCPCS: 93306

== ENCOUNTER → 2024-10-27 10:59 | Outpatient (BNV) | payer OTHER, SELFPAY | PROVIDERS: PCP Internal Medicine; Visit Provider Internal Medicine Cardiovascular Disease | DX: I35.1 Nonrheumatic aortic (valve) insufficiency (principal); I51.89 Other ill-defined heart diseases | CPT/HCPCS: 93306 ==

== ENCOUNTER 2024-11-19 10:19 | Outpatient (REF) | payer OTHER, SELFPAY ==
--- OUTSIDE RECORDS SUMMARY | 2024-10-28 05:30 | XMS_ITS ---
Author Organization [facility] Address [address] [place] [address] Care Team Providers Care Community Service Officer Name Role Phone Letty Morrison Primary Care Provider Katina vailable Stephon Nieto Unavailable [phone] REASON FOR VISIT Seen Sooner Encounters Encounter Location Date Provider Diagnosis [address] [address] 10/28/2024 Stephon Nieto Plan Of Treatment Next Appt Details Provider Name:Stephon Nieto , 12/29/2024 10:45:00 AM, [facility], [place] [address], [place], [address], Progress Notes * Letty COLIN NDOB:1950 (74 yo F)Acc No.[id number]:10/28/2024 Progress Note Patient: April MAYA [facility] Provider: Amada Nieto DPM :1950 A ge:74 Y S ex:Female Date:10/28/2024 Address:[address] [place] [address] [address], [id number] Pcp:Letty Pimentel Subjective: * Chief Complaints: * [...] 10/28/2024 Generated for Chanel Soria on: 0 11/19/2024 10:36 AM EDT
[2024-11-19 11:24] LABS: Cholesterol 146 mg/dL (<200); HDL Cholesterol 37 mg/dL (>40); LDL Cholesterol Calculated 58 mg/dL (<100); Triglycerides 257 mg/dL (<150)
== END 2024-11-19 10:20 | disposition home or self-care (01) ==
LOC: HO.LAB 10:19
PROVIDERS: PCP Internal Medicine; Visit Provider Internal Medicine Cardiovascular Disease
DX: E78.5 Hyperlipidemia, unspecified (principal)
CPT/HCPCS: 36415; 80061

== ENCOUNTER 2025-02-02 09:39 | Outpatient (REF) | payer OTHER, SELFPAY ==
--- OUTSIDE RECORDS SUMMARY | 2024-07-21 06:00 | XMS_ITS ---
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 Hat Plunger Operator Name Role Phone Letty Morrison Primary Care Provider Katina Stephon Galindo Unavailable [phone] Medications Medication SIG (Take, Route, Frequency, Duration) [...] Active Encounters En[facility] Date [facility] [address] [place] [address] 2024 Stephon Nieto Plan Of Treatment Next Appt Details Provider Name:Stephon Nieto , 04/14/2025 11:15:00 AM, [address] [facility], [address], [place], [address], Progress Notes * LOYDLetty NDOB:1950 (74 yo F)Acc No.[id number] Progress Note Patient: Letty GREEN Provider: Amada Nieto DPM :1950 A ge:74 Y S ex:Female Date:2024 Address:[address] [place] [address] [address], [facility] Pcp:Letty Pimentel Subjective: * Chief Complaints: * * HPI: A t Risk footcare: Pt States Last PCP Visit: D ate 1 * Medical History: * Medications: T [...] Pending * Provider: Amada Nieto DPM Date: 2024 Generated for Chanel marks/Felice/eTransmitting on: 0 02/02/2025 10:37 AM EDT History and Physical Notes * HPI (History of Present Illness) Category Sub-Category Detail Notes Category Not es At Risk footcare Pt States Last PCP Visit: Date: 4
--- OUTSIDE RECORDS SUMMARY | 2024-10-28 05:30 | XMS_ITS ---
Author Organization [facility] Address [address] [place] [address] Care Team Providers Care Investigation Specialist Name Role Phone Letty Morrison Primary Care Provider Katina vailable Stephon Nieto Unavailable [phone] REASON FOR VISIT Seen Sooner Encounters Encounter Location Date Provider Diagnosis [address] [address] 10/28/2024 Stephon Nieto Plan Of Treatment Next Appt Details Provider Name:Stephon Nieto , 04/14/2025 11:15:00 AM, [facility], [place] [address], [place], [address], Progress Notes * Letty COLIN NDOB:1950 (74 yo F)Acc No.[id number]:10/28/2024 Progress Note Patient: April MAYA [facility] Provider: Amada Nieto DPM :1950 A ge:74 Y S ex:Female Date:10/28/2024 Address:[address] [place] [address] [address], [id number] Pcp:Letty Pimentel Subjective: * Chief Complaints: * [...] 0 10/28/2024 Generated for Chanel Soria on: 0 02/02/2025 10:36 AM EDT
--- OUTSIDE RECORDS SUMMARY | 2025-02-02 10:37 | XMS_ITS | Encounter Summary ---
Author Organization [employer] Address [address] [place] [address] [address] [place] [address] Care Team Providers Care Business Specialist Name Role Phone Letty Morrison MD Primary Care Provide r Reason for Visit * Reason Comments Med Refill Encounter Details Date Type Department Care Team (Late Contact Info) Description 09/02/2023 Refill [facility] [address] [place] [address] Letty Morrison MD [address] [place] [address] Gastro-esophageal reflux disease without esophagitis; Benign neoplasm [...] Department Care Team (Late Contact Info) Description 03/04/2025 9:30 AM EDT Office Visit [facility] [address] [place] [address] Nadja Neri, OD [address] [place] [address] 03/31/2025 10:45 AM EDT Office Visit [facility] [address] [place] [address] Letty Morrison MD [address] [place], [place] [phone] documented as of this encounter Visit Diagnoses Diagnosis Gastro-esophageal reflux disease without esophagitis Benign neoplasm of colon, unspecified documented in this encounter Care Teams Business Specialist Relationship Specialty Start Date End Date Letty Morrison MD [address] [place] [address] PCP - General Family Medicine 02/11/18 documented as of this encounter
--- OUTSIDE RECORDS SUMMARY | 2025-02-02 10:37 | XMS_ITS | Patient Health Record ---
Author Organization [facility] Address [address] [place] [address] Care Team Providers Care Weight Checker Name Role Phone Letty Morrison Primary Care Provider Katina Stephon Galindo Unavailable [phone] Allergies Allergen (clinical drug ingredient) Drug/Non Drug Allergy documented on EMR Reaction Allergy Type Onset Date Status aspirin Aspirin cannot take, gastritis Drug Allergy Active Reason For Referral No Information Medications Medication SIG (Take, Route, Frequency, Duration) Notes Start Date End Date Status Pantoprazole Sodium 40 MG 1 tablet Orall y Once a day; Duration: 30 day(s) Active Symbicort 80-4.5 MCG/ACT 1 puff as neede d Inhalation every 4 hrs Active amLODIPine Besylate 10 MG 1 tablet Orall y Once a day Active Vitamin D3 25 MCG (1000 UT) 1 capsule Or ally Once a day Active Atenolol 100 MG as directed Orally O nce a day Active Loratadine 10 MG 1 tablet Orally Once a day; Duration: 30 day(s) Active Methotrexate 2.5 MG as directed Orally Active Nabumetone 750 MG as directed Orally T wice a day Active Atorvastatin Calcium 40 MG 1 tablet Oral ly Once a day; Duration: 30 days Active Folic Acid 1 MG 1 tablet Orally Once a day; Duration: 30 day(s) Active Fluticasone Propionate 50 MCG/ACT 1 spray in each nostril Nasally Once a day; Duration: 30 day(s) Active Lisinopril 40 MG 1 tablet Orally Once a day Active Immunizations Vaccine Route Administration Date Status Comme nts Influenza Unknown 12/29/2024 Refused Social History Tobacco Use: Social History Observation Description Date Details (start date - stop date) Never Smoker NA - NA Tobacco use other than smoking: Question Answer Notes Are you an other tobacco user? No Tobacco Control (Standard) Question Answer Notes Tobacco use: Nonsmoker Additional Findings: Tobacco non-user Current no nsmoker AUDIT-C (Standard) Question Answer Notes Did you have a drink containing alcohol in the p ast year? No Points 0 Interpretation Negative Problems Problem Type SNOMED Code ICD Code Onset Dates Problem Status W/U Status Risk Notes Problem Bilateral atherosclerosis of arteries of lower limbs (disorder) ([id number] ) Atherosclerosis of lummi artery of both lower extremities, with unspecified presence of clinical manifestation (I70.203) Active confirmed Vital Signs Height 5ft 6in in 12/29/2024 Weight 214 lbs 12/29/2024 BMI 34.54 kg/m2 12/29/2024 Procedures Procedure Date Ordered Date Performed Result Body Sit e 63904-HUMMUIS NAIL, 6 OR MORE 04/19/2024 N/A 45819-Ggwhzhyv Plate 04/19/2024 N/A 72398-HRHY SKIN LESIONS, OVER 4 04/19/2024 N/A 34396-REQXHKL NAIL, 6 OR MORE 09/30/2024 N/A 72531-Iomubjmg Plate 09/30/2024 N/A 43690-LJZC SKIN LESIONS, OVER 4 09/30/2024 N/A 86655-QWUBISQ NAIL, 6 OR MORE 12/29/2024 N/A 27624-EHSD SKIN LESIONS, OVER 4 12/29/2024 N/A Encounters Encounter Location Date Provider Diagnosis [facility] [address] 04/19/2024 Stephon Nieto Atherosclerosis of lummi artery of both lower extremities, with unspecified presence of clinical manifestation I70.203 ; Tinea unguium B35.1 ; Pain in right toe(s) M79.674 ; Pain in left toe(s) M79.675 and Ingrowing nail L60.[address] [facility] [address] 09/30/2024 Stephon Nieto Atherosclerosis of lummi artery of both lower extremities, with unspecified presence of clinical manifestation I70.203 ; Tinea unguium B35.1 ; Pain in right toe(s) M79.674 ; Pain in left toe(s) M79.675 and Ingrowing nail L60.0 [facility] [address] [facility] [address] [place] [address] 12/29/2024 Stephon Nieto Atherosclerosis of lummi artery of both lower extremities, with unspecified presence of clinical manifestation I70.203 ; Tinea unguium B35.1 ; Pain in right toe(s) M79.674 and Pain in left toe(s) M79.675 [facility] [address] [place] [address] 2024 Stephon Nieto Assessments Encounter Date Diagnosis (ICD Code) Assessment Notes Treatment Notes Treatment Clinical Notes Section Notes 04/19/2024 Tinea unguium (ICD-10 - B35.1) 04/19/2024 Atherosclerosis of lummi artery of both lower extremities, with unspecified presence of clinical manifestation (ICD-10 - I70.203) 09/30/2024 Tinea unguium (ICD-10 - B35.1) 09/30/2024 Atherosclerosis of lummi artery of both lower extremities, with unspecified presence of clinical manifestation (ICD-10 - I70.203) 12/29/2024 Tinea unguium (ICD-10 - B35.1) 12/29/2024 Atherosclerosis of lummi artery of both lower extremities, with unspecified presence of clinical manifestation (ICD-10 - I70.203) 09/30/2024 Pain in right toe(s) (ICD-10 - M79.674) 12/29/2024 Pain in right toe(s) (ICD-10 - M79.674) 04/19/2024 Pain in right toe(s) (ICD-10 - M79.674) 04/19/2024 Pain in left toe(s) (ICD-10 - M79.675) 12/29/2024 Pain in left toe(s) (ICD-10 - M79.675) 09/30/2024 Pain in left toe(s) (ICD-10 - M79.675) 09/30/2024 Ingrowing nail (ICD-10 - L60.0) 04/19/2024 Ingrowing nail (ICD-10 - L60.0) Plan Of Treatment Pending Test Test Name Order Date X ray : Foot, right 3V 12/20/2021 86800-WOBVHPE NAIL, 6 OR MORE 04/11/2022 43785-KBYWNNF NAIL, 6 OR MORE 12/13/2021 94685-BGLSSLT NAIL, 6 OR MORE 07/29/2022 49123-DNZZMPL NAIL, 6 OR MORE 10/17/2022 05698-IHBDEII NAIL, 6 OR MORE 01/16/2023 51967-XVPNWUC NAIL, 6 OR MORE 04/14/2023 44607-WTIRXQO NAIL, 6 OR MORE 07/14/2023 57473-RSJFCUT NAIL, 6 OR MORE 10/13/2023 68848-KIOESWA NAIL, 6 OR MORE 01/12/2024 80150-PSWYHLS NAIL, 6 OR MORE 04/19/2024 55164-LZKTOYO NAIL, 6 OR MORE 09/30/2024 82009-EGFCSRO NAIL, 6 OR MORE 12/29/2024 04218-Nkkqgqgy Plate 09/30/2024 75376-Vrcattzx Plate 04/19/2024 09972-Zsngbyle Plate 01/12/2024 12729-Luzjjjrn Plate 07/29/2022 53524-Ttzlhmdu Plate 10/13/2023 75666-Shjzsgib Plate 07/14/2023 93936-Lncdxfbh Plate 04/14/2023 32850-Bixreuol Plate 01/16/2023 34699-Lhqcsqin Plate 10/17/2022 97493-Lsokzvhi Plate 12/13/2021 99099-QTFT SKIN LESIONS, OVER 4 04/11/20 22 11476-HIMD SKIN LESIONS, OVER 4 10/18/19 23 96484-OMPH SKIN LESIONS, OVER 4 07/29/19 23 62218-RRVT SKIN LESIONS, OVER 4 01/17/20 23 98013-YEHH SKIN LESIONS, OVER 4 04/14/20 23 96134-WAXW SKIN LESIONS, OVER 4 07/14/19 24 62134-VZUP SKIN LESIONS, OVER 4 10/13/19 24 02087-RQIP SKIN LESIONS, OVER 4 01/12/20 24 78904-QHXP SKIN LESIONS, OVER 4 04/19/20 24 23521-OCII SKIN LESIONS, OVER 4 10/01/19 25 95683-MNFO SKIN LESIONS, OVER 4 12/30/19 25 80815-XBZX SKIN LESIONS, 2 TO 4 12/14/19 Next Appt Details Provider Name:Stephon Nieto , 04/14/2025 11:15:00 AM, [address] [facility], [address], [place], [address], Insurance Providers Payer Name Payer Address Payer Phone Subscriber Number Group Number Insured Name Patient Relationship to Insured Coverage Start Date Coverage End Date [employer] Medicare-[id number] [address] [place] [address] [id number] Letty Moran Self - patient is the insured Medical (General) History Medical History History ICD Code Arthritis - Psoriatic and Osteo/DJD Back,Hip,and Knee pain Cholesterol Headaches/Migraines Neuropathy Poor circulation Psoriasis/eczema High blood pressure Surgical History Surgery Date(Month/Year) back surgery x2 97,04 Hospitalization History Reason Date(Month/Year) [facility] [place] 01/07/2024 [facility] [place] chest pain, trouble breathing 3
--- OUTSIDE RECORDS SUMMARY | 2025-02-02 10:37 | XMS_ITS | Clinical Summary ---
Author Organization [employer] Address [address] [facility] 7[address] [place] [address] Care Team Providers Care Distance Education Faculty Liaison Name Role Phone Letty Morrison MD Primary Care Provide r Allergies Active Allergy Reactions Criticality Noted Date Comments Aspirin 07/03/2010 Other reaction(s): GI upset Medications folic acid (Folvite) 1 MG tablet Take 1 tablet by mouth at bed time. Active methotrexate 2.5 MG tablet TAKE 4 TABLETS BY MOUTH WEEKLY 3 Active nabumetone (Relafen) 750 MG tablet TAKE 1 TABLET BY MOUTH TWICE A DAY WITH FOOD NEEDED FOR PAIN 2 Active pantoprazole (ProtoNix) 40 MG EC tablet Take 40 mg by mouth in the morning. 3 Active fluticasone (Flonase) 50 MCG/ACT nasal sprayIndications:P ostnasal drip Administer 2 sprays into each nostril Once per day. Shake gently. Before first use, prime pump. After use, clean tip and replace cap. 48 mL 3 5 026 Active amLODIPine (Norvasc) 10 MG tabletIndications: Primary hypertension TAKE 1 TABLET BY MOUTH EVERY DAY IN THE MORNING 90 tablet 1 5 Active atenolol (Tenormin) 100 MG tabletIndications: Primary hypertension TAKE 1 TABLET BY MOUTH EVERY DAY IN THE MORNING 90 tablet 1 5 Active lisinopril 40 MG tablet TAKE 1 TABLET BY MOUTH EVERY DAY 90 tablet 1 5 Active furosemide (Lasix) 20 MG tablet Take 1 tablet by mouth Once per day. 5 Active D3-1000 25 MCG (1000 UT) capsuleIndications :Osteopenia, unspecified location TAKE 1 CAPSULE BY MOUTH EVERY DAY 90 capsule 5 Active loratadine (Claritin) 10 MG tabletIndications: Postnasal drip Take 1 tablet (10 mg) by mouth in the morning. 90 tablet 3 5 Active atorvastatin (Lipitor) 40 MG tabletIndications: Hyperlipidemia, unspecified hyperlipidemia type Take 1 tablet (40 mg) by mouth Once per day. 30 tablet 11 5 026 Active Active Problems Problem Noted Date Diagnosed Date DELGADO (obstructive sleep apnea) 12/23/2024 Assessment & Plan (12/23/2024 2:47 PM EDT): Weight loss was advise I will order sleep titration studies I will refer patient to sleep medicine SOB (shortness of breath) on exertion 09/23/2024 [...] 10:49 AM EST): Patient tells me her business unit manager referred her to physical therapy, she just started the sessions I will prescribe for now short course of tramadol to help her with her acute pain and for her to do better her physical therapy She tells me business unit manager plan was if PT is not helping [...] about lifestyle modifications done 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, bilateral legs 07/24/2022 Assessment & Plan (06/25/2024 10:51 AM EST): Continue with atorvastatin and follow-up with cardiology, labs printed and given to patient for her cotton wringer to see Assessment & Plan (03/31/2024 12:33 [...] 04/19/2014 Vitamin D deficiency 04/15/2013 Hyperlipidemia 08/12/2012 Assessment & Plan (12/23/2024 2:48 PM EDT): Today extensive discussion was done about life style modifications I advise healthy diet (low calorie) and cardiovascular exercise I went up on atorvastatin to 40mg daily Osteoarthritis 03/25/2012 Degeneration of lumbosacral intervertebral disc [...] Encounters Date Type Department Care Team Description 12/23/2024 11:00 AM EDT Office Visit [facility] [address] [place] [address] Letty Morrison MD DELGADO (obstructive sleep apnea); Hyperlipidemia, unspecified hyperlipidemia type; Postnasal drip; Dietary counseling; Exercise counseling 12/23/2024 Travel 12/22/2024 Telephone [facility] [address] [place] [address] Letty Morirson MD Chart Prep 12/18/2024 Refill [facility] [address] [place] [address] Letty Morrison MD Osteopenia, unspecified location 12/17/2024 Refill [facility] [address] [place] [address] Stephie Bishop DO 12/15/2024 Patient Outreach [facility] [address] [place] [address] Letty Morrison MD Pre-visit Planning (SDOH screening completed on 06/15/2024) 11/30/2024 1:00 PM EDT Office Visit [facility] [address] [place] [address] Daron, Nadja, OD Combined forms of age-related cataract of both eyes (Primary Dx); Glaucoma suspect of both eyes; Presbyopia 11/30/2024 Travel 11/11/2024 Refill [facility] [address] [place], [place] [phone] Letty Morrison MD from Last 3 Months Immunizations Immunization Administration [...] Answer Date Recorded Patient Health Questionnaire-9 Score 0 12/23/2024 Patient Health Questionnaire-9 Score 0 12/23/2024 Last PHQ-9: Questionnaire Data Not on file 0 12/23/2024 Housing Stability Answer Date Recorded What is [...] Date Recorded Patient Health Questionnaire-2 Score 0 12/23/2024 Internet Access Answer Date Recorded Internet Access [...] Sign Reading Time Taken Comments Blood Pressure 118/72 12/23/2024 11:05 AM EDT Pulse 61 12/23/2024 11:05 AM EDT Temperature 36.1 C (97 F) 12/23/2024 11:05 AM EDT Respiratory Rate 16 12/23/2024 11:05 AM EDT Oxygen Saturation 97% 12/23/2024 11:05 AM EDT Inhaled Oxygen Concentration - - Weight 98.4 kg (217 lb) 12/23/2024 11:05 AM EDT Height 162.6 cm (5' 4 ) 12/23/2024 11:05 AM EDT Body Mass Index 37.25 12/23/2024 11:05 AM EDT Plan of Treatment Upcoming Encounters Date Type Department Care Team (Late st Contact Info) Description 03/04/2025 9:30 AM EDT Office Visit [facility] [address] [place] [address] Daron, Nadja, OD [address] [place] [address] 03/31/2025 10:45 AM EDT Office Visit [facility] [address] [place] [address] Letty Morrison MD [address] [place] [address] Health Maintenance Due Date Last Done Comments CT Colonography 1949 FIT DNA/Cologuard 1949 FIT 1949 FOBT 1950 Sigmoidoscopy 1950 Hepatitis C Screening 1967 COVID-19 Vaccine ( season) 2024 10/16/2021, 04/11/2021, 08/23/2020 Influenza Vaccine (#1) 2025 , 03/11/2022, 02/13/2021, Additional history exists SDOH Screening 06/15/2025 06/15/2024 Alcohol/Substance Use Screening 12/23/2025 12/23/2024 Depression Screening 12/23/2025 12/23/2024, 12/24/19 25 Tobacco Screening 12/23/2025 12/23/2024 Colonoscopy 02/20/2026 02/20/2021, 01/02/2016 Colorectal Cancer Screening 02/20/2026 DTaP/Tdap/Td Vaccines (2 - Td or Tdap) 10/07/2027 10/06/2017, 08/21/2007 Lipid Panel 04/27/2029 04/27/2024, 12/02, 10/26/2021, Additional history exists RSV Patients and Patients Aged 60 years or older Completed 01/27/2024 Pneumococcal Vaccine: 50+ Years Completed 02/10/2024, 07/05/2016, 10/26/2014, Additional history exists Zoster Vaccines Completed 03/16/2024, [...] Procedure Name Priority Date/Time Associated Diagnosis Comments OCT, OPTIC NERVE - OU - BOTH EYES Routine 11/30/2024 1:00 PM EDT Glaucoma suspect of both eyes LIPID PANEL, STANDARD Routine 04/27/2024 8:34 AM EST Hyperlipidemia, unspecified hyperlipidemia type HM COLONOSCOPY Routine 02/20/2021 from Last 3 Months or Most Recently Relevant to Health Maintenance Results * OCT, Optic Nerve - OU - Both Eyes (11/30/2024 1:00 PM EDT) Nadja Flor, OD - 12/10/2024 2:48 PM EDT Images from the original result were not included. Right Eye Images reviewed and comparison made to baseline. To assess optic nerve function and for use in future follow-up. Reliability: good and adequate. Left Eye Images reviewed and comparison made to baseline. To assess optic nerve function and for use in future follow-up. Reliability: good and adequate. Notes OCT OPTIC NERVE INTERPRETATION Optical Coherence Tomography Interpretation Report Test Details: Measurements: OD OS C/D Horizontal 0.83 0.75 C/D Vertical 0.75 0.73 Disc area 2.45 mm 2 2.41 mm 2 RNFL Average 92 microns 100 microns Test findings: OD: Borderline RNFL thinning of inferior quadrant. Normal RNFL thickness in all other quadrants. OS: Normal RNFL thickness in all quadrants. Impression and Plan: Right eye (OD): stable average RNFL thickness compared to 11/2022. Left eye (OS): 2 micron decrease in average RNFL thickness compared to 11/2022. The patient is a low risk glaucoma suspect right eye (OD)>left eye (OS). Will have her return in 3-4 months for a glaucoma workup. us Nadja Neri OD OPHTH TOMOGRAPHY Final Result * (ABNORMAL) Lipid Panel, Standard (04/27/2024 8:34 AM EST) Triglycerides 326(H) <150 mg/dL [facility] Comment:Desirable Triglyceri de: less than 150 mg/dLBorderline High Triglyceride 150-199 mg/dLHigh Triglyceride: 200-499 mg/dLVery High Triglyceride: greater than or equal to 5OO mg/dL Cholesterol 169 <200 mg/dL [facility] Comment:Desirable Cholestero l: less than 200 mg/dLBorderline High Cholesterol: 200-239 mg/dLHigh Cholesterol: greater than 239 mg/dL LDL Cholesterol Calculated 67 <100 mg/dL [facility] Comment:Desirable LDL: less than 100 mg/dLNear Optimal/Above Optimal LDL: 110- 129 mg/dLBorderline High LDL: 130-159 mg/dLHigh LDL: 160-189 mg/dLVery High LDL: greater than or equal to 190 mg/dL HDL Cholesterol 37(L) >40 mg/dL [facility] Comment:Desirable HDL: great er than 40 mg/dL Note: This HDL assay may give artificially low results in patients with liver disease. Blood Venous blood specimen / Unknown 04/27/2024 8:34 AM EST 04/27/2024 11:47 AM EST us Letty Pimentel MD LAB BLOOD ORDERABLES Final Result [facility] [address] [place] [phone] * Colonoscopy (02/20/2021) [facility] Signature Colonoscopy Normal Normal Narrative Betty Denise - 02/20/2021 Recommended 5 year follow up us Historical Provider HEALTH MAINTENANCE Final Result from Last 3 Months or Most Recently Relevant to Health Maintenance Insurance [facility] STANDARD Care Teams Distance Education Faculty Liaison Relationship Specialty Start Date End Date Letty Morrison MD [address] [place] [address] PCP - General Family Medicine 02/11/18
--- OUTSIDE RECORDS SUMMARY | 2025-02-02 10:37 | XMS_ITS | Encounter Summary ---
Author Organization [employer] Address [address] [place] [address] [address] [place] [address] Care Team Providers Care Lead Mobile Developer Name Role Phone Letty Morrison MD Primary Care Provide r Reason for Visit * Reason Comments Med Refill Encounter Details Date Type Department Care Team ([facility] Contact Info) Description 09/03/2022 Refill [facility] [address] [place] [address] Amish Aquino MD [address] [place] [address] Social History Tobacco Use Types Packs/Day Years [...] Description 03/04/2025 9:30 AM EDT Office Visit [facility] [address] [place] [address] Nadja Neri, OD [address] [place] [address] 03/31/2025 10:45 AM EDT Office Visit [facility] [address] [place] [address] Letty Morrison MD [address] [place], [place] [phone] documented as of this encounter Visit Diagnoses Not on filedocumented in this encounter Care Teams Lead Mobile Developer Relationship Specialty Start Date End Date Letty Morrison MD [address] [place], [place] [phone] PCP - General Family Medicine 02/11/18 documented as of this encounter
--- OUTSIDE RECORDS SUMMARY | 2025-02-02 10:37 | XMS_ITS | Encounter Summary ---
Author Organization [employer] Address [address] [place] [address] [address] [place] [address] Care Team Providers Care Legal Document Assistant Name Role Phone Letty Morrison MD Primary Care Provide r Reason for Visit * Reason Onset Date Comments Nurse Triage 11/03/2023 Encounter Details Date Type Department Care Team ([facility] st Contact Info) Description 11/03/2023 Telephone [facility] [address] [place] [address] Letty Morrison MD [address] [place] [address] Nurse Triage Social History Tobacco Use Types [...] possible. Pt is offered to come to [facility] but, reports unable to come today. Pt will come to [facility] tomorrow to be seen by provider. Hours [...] acuity questions The caller accepted this outcome Malay speaker documented in this encounter Plan of Treatment Upcoming Encounters Date Type Department Care Team (Late st Contact Info) Description 03/04/2025 9:30 AM EDT Office Visit [facility] [address] [place] [address] Nadja Neri, OD [address] [place] [address] 03/31/2025 10:45 AM EDT Office Visit [facility] [address] [place] [address] Letty Morrison MD [address] [place] [address] documented as of this encounter Visit Diagnoses Not on filedocumented in this encounter Care Teams Legal Document Assistant Relationship Specialty Start Date End Date Letty Morrison MD [address] [place] [address] PCP - General Family Medicine 02/11/18 documented as of this encounter
--- OUTSIDE RECORDS SUMMARY | 2025-02-02 10:37 | XMS_ITS | Encounter Summary ---
Author Organization [employer] Address [address] [place] [address] [address] [place] [address] Care Team Providers Care Gas Substation Operator Name Role Phone Letty Morrison MD Primary Care Provide r Encounter Details Date Type Department Care Team ([facility] Contact Info) Description 03/12/2023 Abstract [facility] [address] [place] [address] Letty Morrison MD [address] [place] [address] Social History Tobacco Use Types Packs/Day Years [...] Upcoming Encounters Date Type Department Care Team ([facility] Contact Info) Description 03/04/2025 9:30 AM EDT Office Visit [facility] [address] [place] [address] Nadja Neri, OD [address] [place] [address] 03/31/2025 10:45 AM EDT Office Visit [facility] [address] [place] [address] Letty Morrison MD [address] [place] [address] documented as of this encounter Procedures Procedure Name Priority Date/Time Associated Diagnosis Comments COLONOSCOPY Routine 02/20/2021 COLONOSCOPY Routine 01/02/2016 documented in this encounter Results * Colonoscopy (02/20/2021) Colonoscopy Normal Normal [facility] - 02/20/2021 Recommended 5 year follow up us Historical Provider HEALTH MAINTENANCE Final Result * Colonoscopy (01/02/2016) Colonoscopy Normal Normal [facility] - 01/02/2016 Recommended 5 year follow up us Historical Provider HEALTH MAINTENANCE Final Result documented in this encounter Visit Diagnoses Not on filedocumented in this encounter Care Teams Gas Substation Operator Relationship Specialty Start Date End Date Letty Morrison MD [address] [place] [address] PCP - General Family Medicine 02/11/18 documented as of this encounter
--- OUTSIDE RECORDS SUMMARY | 2025-02-02 10:37 | XMS_ITS | Patient Health Record ---
Author Organization [facility] Address [address] [place] [address] Care Team Providers Care Lion Hunter Name Role Phone Moe Rodriguez Jr [phone] Reason For Referral No Information Plan Of Treatment No Information
--- OUTSIDE RECORDS SUMMARY | 2025-02-02 10:37 | XMS_ITS | Encounter Summary ---
Author Organization [employer] Address [address] [place] [address] [address] [place] [address] Care Team Providers Care In Flight Refueling Manager Name Role Phone Letty Morrison MD Primary Care Provide r Reason for Visit * Reason Comments Med Refill Encounter Details Date Type Department Care Team ([facility] Contact Info) Description 12/08/2022 Refill [facility] [address] [place] [address] Amish Aquino MD [address] [place] [address] Social History Tobacco Use Types Packs/Day Years [...] Description 03/04/2025 9:30 AM EDT Office Visit [facility] [address] [place] [address] Nadja Neri, OD [address] [place] [address] 03/31/2025 10:45 AM EDT Office Visit [facility] [address] [place] [address] Letty Morrison MD [address] [place], [place] [phone] documented as of this encounter Visit Diagnoses Not on filedocumented in this encounter Care Teams In Flight Refueling Manager Relationship Specialty Start Date End Date Letty Morrison MD [address] [place], [place] [phone] PCP - General Family Medicine 02/11/18 documented as of this encounter
[2025-02-02 10:39] LABS: Cholesterol 151 mg/dL (<200); HDL Cholesterol 36 mg/dL (>40); Triglycerides 263 mg/dL (<150)
== END 2025-02-02 09:40 | disposition home or self-care (01) ==
LOC: HO.LAB 09:39
PROVIDERS: PCP Internal Medicine; Visit Provider Internal Medicine Cardiovascular Disease
DX: E78.5 Hyperlipidemia, unspecified (principal)
CPT/HCPCS: 36415; 80061

== ENCOUNTER → 2025-05-15 19:30 | Outpatient (BNV) | payer OTHER, SELFPAY | PROVIDERS: PCP Internal Medicine; Visit Provider Internal Medicine | DX: G47.33 Obstructive sleep apnea (adult) (pediatric) (principal) | CPT/HCPCS: 95811 ==

== ENCOUNTER → 2025-05-15 19:30 | Outpatient (REF) | payer OTHER, SELFPAY ==
--- OUTSIDE RECORDS SUMMARY | 2024-07-21 05:00 | XMS_ITS ---
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 Name Role Phone Letty Morrison Primary Care Provider Katina Stephon Galindo Unavailable [phone] Medications Medication SIG (Take, Route, Frequency, Duration) Notes Start Date End Date Status Atenolol 100 MG as directed Orally O nce a day Active Atorvastatin Calcium 20 MG 1 tablet Oral ly Once a day; Duration: 30 day(s) Active Symbicort 80-4.5 MCG/ACT 1 puff as neede d Inhalation every 4 hrs Active amLODIPine Besylate 10 MG 1 tablet Orall y Once a day Active Vitamin D3 25 MCG (1000 UT) 1 capsule Or ally Once a day Active Lisinopril 40 MG 1 tablet Orally Once a day Active Loratadine 10 MG 1 tablet Orally Once a day; Duration: 30 day(s) Active Methotrexate 2.5 MG as directed Orally Active Nabumetone 750 MG as directed Orally T wice a day Active Pantoprazole Sodium 40 MG 1 tablet Orall y Once a day; Duration: 30 day(s) Active Folic Acid 1 MG 1 tablet Orally Once a day; Duration: 30 day(s) Active Fluticasone Propionate 50 MCG/ACT 1 spray in each nostril Nasally Once a day; Duration: 30 day(s) Active Encounters Encounter [facility] Date [facility] [address] [place] [address] 2024 Stephon Nieto Plan Of Treatment Next Appt Details Provider Name:Stephon Nieto , 07/28/2025 11:00:00 AM, [address] [facility], [address], [place], [address], Progress Notes * LOYDLetty NDOB:1950 (74 yo F)Acc No.[id number] Progress Note Patient: Letty GREEN Provider: Amada Nieto DPM :1950 A ge:74 Y S ex:Female Date:2024 Address:[address] [place] [address] [address], [facility] Pcp:Letty Pimentel Subjective: * Chief Complaints: * * HPI: A t Risk footcare: Pt States Last PCP Visit: D ate: 1 * Medical History: * Medications: T aking amLODIPine Besylate 10 MG Tablet 1 tablet Orally Once a day , Taking Atenolol 100 MG Tablet as directed Orally Once a day , Taking Atorvastatin Calcium 20 MG Tablet 1 tablet Orally Once a day , Taking Folic Acid 1 MG Tablet 1 tablet Orally Once a day , Taking Fluticasone Propionate 50 MCG/ACT Suspension 1 spray in each nostril Nasally Once a day , Taking Lisinopril 40 MG Tablet 1 tablet Orally Once a day , Taking Loratadine 10 MG Tablet 1 tablet Orally Once a day , Taking Methotrexate 2.5 MG Tablet as directed Orally , Taking Nabumetone 750 MG Tablet as directed Orally Twice a day , Taking Pantoprazole Sodium 40 MG Tablet Delayed Release 1 tablet Orally Once a day , Taking Symbicort 80-4.5 MCG/ACT Aerosol 1 puff as needed Inhalation every 4 hrs , Taking Vitamin D3 25 MCG (1000 UT) Capsule 1 capsule Orally Once a day Objective: * Vitals: Assessment: Plan: * Treatment: * Images: * The named appointment provid er may or may not be the originator of this progress note, and it is not deemed complete until electronically signed by the appointment provider. Sign off status: Pending * Provider: Amada Nieto DPM Date: 0 2024 Generated for Chanel marks/Felice/eTransmitting on: 1 07/16/2024 08:47 PM EST History and Physical Notes * HPI (History of Present Illness) Category Sub-Category Detail Notes Category Not es At Risk footcare Pt States Last PCP Visit: Date:: 03/29/20 24
--- OUTSIDE RECORDS SUMMARY | 2024-10-28 04:30 | XMS_ITS ---
Author Organization [facility] Address [address] [place] [address] Care Team Providers Care Certified Shorthand Reporter Name Role Phone Letty Morrison Primary Care Provider Katina vailable Stephon Nieto Unavailable [phone] REASON FOR VISIT Seen Sooner Encounters Encounter Location Date Provider Diagnosis [address] [address] 10/28/2024 Stephon Nieto Plan Of Treatment Next Appt Details Provider Name:Stephon Nieto , 07/28/2025 11:00:00 AM, [facility], [place] [address], [place], [address], Progress Notes * Letty COLIN NDOB:1950 (74 yo F)Acc No.[id number]:10/28/2024 Progress Note Patient: April MAYA [place] Provider: Amada Nieto DPM :1950 A ge:74 Y S ex:Female Date:10/28/2024 Address:[address] [place] [address] [address], [id number] Pcp:Letty Pimentel Subjective: * Chief Complaints: * 1 . Seen Sooner. * Medical History: Objective: * Vitals: Assessment: Plan: * Treatment: * Images: * The named appointment provid er may or may not be the originator of this progress note, and it is not deemed complete until electronically signed by the appointment provider. Sign off status: Pending * Provider: Amada Nieto DPM Date: 0 10/28/2024 Generated for Chanel Soria on: 07/16/2024 08:47 PM EST
--- OUTSIDE RECORDS SUMMARY | 2025-05-15 20:48 | XMS_ITS | Patient Health Record ---
Author Organization [facility] Address [address] [place] [address] Care Team Providers Care Packager Or Packer And Weigher Name Role Phone Moe Rodriguez Jr Reason For Referral No Information Plan Of Treatment No Information
--- OUTSIDE RECORDS SUMMARY | 2025-05-15 20:48 | XMS_ITS | Patient Health Record ---
[facility] Address [address] [place] [address] Care Team Providers Care Baker Test Name Role Phone Letty Morrison Primary Care Provider Katina Stephon Galindo Unavailable [phone] Allergies Allergen (clinical drug ingredient) Drug/Non Drug Allergy documented on EMR Reaction Allergy Type Onset Date Status aspirin Aspirin cannot take, gastritis Drug Allergy Active Reason For Referral No Information Medications Medication SIG (Take, Route, Frequency, Duration) Notes Start Date End Date Status Pantoprazole Sodium 40 MG 1 tablet Orall y Once a day; Duration: 30 day(s) Active Nabumetone 750 MG as directed Orally T wice a day Active Methotrexate 2.5 MG as directed Orally Active Loratadine 10 MG 1 tablet Orally Once a day; Duration: 30 day(s) Active Lisinopril 40 MG 1 tablet Orally Once a day Active Fluticasone Propionate 50 MCG/ACT 1 spray in each nostril Nasally Once a day; Duration: 30 day(s) Active Folic Acid 1 MG 1 tablet Orally Once a day; Duration: 30 day(s) Active Atorvastatin Calcium 40 MG 1 tablet Oral ly Once a day; Duration: 30 days Active Atenolol 100 MG as directed Orally O nce a day Active amLODIPine Besylate 10 MG 1 tablet Orall y Once a day Active Vitamin D3 25 MCG (1000 UT) 1 capsule Or ally Once a day Active Symbicort 80-4.5 MCG/ACT 1 puff as neede d Inhalation every 4 hrs Active Immunizations Vaccine Route Administration Date Status [...] atherosclerosis of arteries of lower limbs (disorder) ([id number] ) Atherosclerosis of [place] artery of both lower extremities, with unspecified presence of clinical manifestation (I70.203) Active confirmed Vital Signs Height 5ft 6in in 04/14/2025 Weight 214 lbs 04/14/2025 BMI 34.54 kg/m2 04/14/2025 Procedures Procedure Date Ordered Date Performed Result Body Sit e 12575-RUJBOXH NAIL, 6 OR MORE 09/30/2024 N/A 77093-Ppcialke Plate 09/30/2024 N/A 78206-DBRA SKIN LESIONS, OVER 4 09/30/2024 N/A 72943-KDLCFMZ NAIL, 6 OR MORE 12/29/2024 N/A 37391-YJXD SKIN LESIONS, OVER 4 12/29/2024 N/A 31426-ZOSGABC NAIL, 6 OR MORE 04/14/2025 N/A 58342-MDXR SKIN LESIONS, OVER 4 04/14/2025 N/A Encounters Encounter Location Date Provider Diagnosis [facility] [address] 09/30/2024 Stephon Nieto Atherosclerosis of [place] artery of both lower extremities, with unspecified presence of clinical manifestation I70.203 ; Tinea unguium B35.1 ; Pain in right toe(s) M79.674 ; Pain in left toe(s) M79.675 and Ingrowing nail L60.[address] [facility] [address] 12/29/2024 Stephon Nieto Atherosclerosis of [place] artery of both lower extremities, with unspecified presence of clinical manifestation I70.203 ; Tinea unguium B35.1 ; Pain in right toe(s) M79.674 and Pain in left toe(s) M79.675 [facility] [place] [address] [place] [address] 04/14/2025 Stephon Nieto Atherosclerosis of [place] artery of both lower extremities, with unspecified presence of clinical manifestation I70.203 ; Tinea unguium B35.1 ; Pain in right toe(s) M79.674 and Pain in left toe(s) M79.675 [facility] [address] [place] [address] 2024 Stephon Nieto Assessments Encounter Date Diagnosis (ICD Code) Assessment Notes Treatment Notes Treatment Clinical Notes Section Notes 09/30/2024 Tinea unguium (ICD-10 - B35.1) 09/30/2024 Atherosclerosis of [place] artery of both lower extremities, with unspecified presence of clinical manifestation (ICD-10 - I70.203) 12/29/2024 Tinea unguium (ICD-10 - B35.1) 12/29/2024 Atherosclerosis of [place] artery of both lower extremities, with unspecified presence of clinical manifestation (ICD-10 - I70.203) 04/14/2025 Tinea unguium (ICD-10 - B35.1) 04/14/2025 Atherosclerosis of [place] artery of both lower extremities, with unspecified presence of clinical manifestation (ICD-10 - I70.203) 04/14/2025 Pain in right toe(s) (ICD-10 - M79.674) 09/30/2024 Pain in right toe(s) (ICD-10 - M79.674) 12/29/2024 Pain in right toe(s) (ICD-10 - M79.674) 12/29/2024 Pain in left toe(s) (ICD-10 - M79.675) 09/30/2024 Pain in left toe(s) (ICD-10 - M79.675) 04/14/2025 Pain in left toe(s) (ICD-10 - M79.675) 09/30/2024 Ingrowing nail (ICD-10 - L60.0) Plan Of Treatment Pending Test Test Name Order Date X ray : Foot, right 3V 12/20/2021 21108-TMADFGF NAIL, 6 OR MORE 04/11/2022 22771-QISFIDW NAIL, 6 OR MORE 12/13/2021 10484-UCEHBXA NAIL, 6 OR MORE 07/29/2022 12870-ZQFNRVD NAIL, 6 OR MORE 10/17/2022 53388-SZCMQLU NAIL, 6 OR MORE 01/16/2023 41889-LYOVIIH NAIL, 6 OR MORE 04/14/2023 72969-WZOGDUT NAIL, 6 OR MORE 07/14/2023 10771-ETEZHQI NAIL, 6 OR MORE 10/13/2023 93290-ZIAKMCW NAIL, 6 OR MORE 01/12/2024 44740-CBLECTL NAIL, 6 OR MORE 04/19/2024 54131-VRTNINP NAIL, 6 OR MORE 09/30/2024 96579-IBRNJQA NAIL, 6 OR MORE 12/29/2024 25356-SHJWLCI NAIL, 6 OR MORE 04/14/2025 67557-Rmkfbeea Plate 07/29/2022 26304-Ajlhiqdc Plate 09/30/2024 49230-Xixavzbu Plate 04/19/2024 22912-Bsmzwiqk Plate 01/12/2024 56214-Iyyrbhfj Plate 10/13/2023 83346-Oxvfixbq Plate 07/14/2023 89886-Oloetvyx Plate 04/14/2023 50163-Simcqjqy Plate 01/16/2023 48396-Wwvmowvs Plate 10/17/2022 43544-Rszeejal Plate 12/13/2021 77786-IFEV SKIN LESIONS, OVER 4 04/11/20 22 51278-RPJV SKIN LESIONS, OVER 4 10/18/19 23 00493-RRHJ SKIN LESIONS, OVER 4 07/29/19 23 86510-WUSJ SKIN LESIONS, OVER 4 01/17/20 23 59542-BEDH SKIN LESIONS, OVER 4 04/14/20 23 72168-UZJB SKIN LESIONS, OVER 4 07/14/19 24 90793-CZDO SKIN LESIONS, OVER 4 10/13/19 24 19643-YBCN SKIN LESIONS, OVER 4 01/12/20 24 03185-GSPB SKIN LESIONS, OVER 4 04/19/20 24 21241-DNHS SKIN LESIONS, OVER 4 10/01/19 25 83026-AXWF SKIN LESIONS, OVER 4 12/30/19 25 41158-MGFC SKIN LESIONS, OVER 4 04/14/20 25 70373-AXAF SKIN LESIONS, 2 TO 4 12/14/19 Next Appt Details Provider Name:Stephon Nieto , 07/28/2025 11:00:00 AM, [address], [address], [place], [address], Insurance Providers Payer Name Payer Address Payer Phone Subscriber Number Group Number Insured Name Patient Relationship to Insured Coverage Start Date Coverage End Date [facility] Medicare-[id number] [address] [place] [address] [id number] [facility] - patient is the insured Medical (General) History Medical History History ICD Code Arthritis - Psoriatic and Osteo/DJD Back,Hip,and Knee pain Cholesterol Headaches/Migraines Neuropathy Poor circulation Psoriasis/eczema High blood pressure Surgical History Surgery Date(Month/Year) back surgery x2 97,04 Hospitalization History Reason Date(Month/Year) [facility] [place] - Sinus infection 01/07/2024 [facility] [place]- chest pain, trouble breathing
== END ==
LOC: HO.SL 19:30
PROVIDERS: PCP Internal Medicine; Visit Provider Internal Medicine
DX: G47.33 Obstructive sleep apnea (adult) (pediatric) (principal); R06.83 Snoring
CPT/HCPCS: 95806